=== PATIENT | male | born 1940 | race Caucasian/White ===

== ENCOUNTER 2024-09-17 14:54 | Inpatient (IN) ==
--- NOTE | 2024-09-17 15:35 | Emergency Department Note ---
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 Patient evidently states he moved here within the past year from [facility]. Is not established doctors locally. States he does take some Lasix has had some leg swelling issues but leg swelling seems to be worse. There is no ago slid and scraped his left elbow on a door frame. Did not fall and hit his head. States over the past week has been having some intermittent light flashes in both eyes. States somewhat more in the right vision torres but states it affects both eyes. No blurry vision. No eye pain or headache. No numbness or tingling. Does get significantly weak and has dyspnea on exertion with ambulation. Denies fever or significant chest pain or abdominal pain. Increased and now fairly regular flashes in both eyes and thus came here for evaluation today. Upon arrival was desaturated and with any transfer ambulation dropped into the 60s but now back in the mid to high 90s on 6 L. PAST MEDICAL HISTORY: As noted above MEDICATIONS: Discussed with the patient and reports he is on Lasix as well as inhalers and oxygen. Denies blood thinners to me. SOCIAL HISTORY: Former smoker, lives in assisted living PHYSICAL EXAM: GENERAL: alert and oriented in no acute distress on stretcher thin in appearance Head: normocephalic and atraumatic EYES: No injection, discharge or icterus. PERRL, EOMI. NECK: Trachea midline. Supple. ENT: Mucous membranes pink and moist. LUNGS: Airway patent. No retractions but mild tachypnea. Breath sounds scattered wheezes HEART: Regular rate and rhythm. No chest wall tenderness ABDOMEN: Soft and non-tender, without guarding or rebound. SKIN: Acyanotic, warm, dry, without rashes EXTREMITIES: With 2+ edema bilateral lower extremities with some mild erythema and excoriation of the bilateral lower legs with this sloughing superficial skin. The left elbow with an approximately 4 x 10 cm area of skin tear and abrasion with a little bit of granulation tissue over the wound but no active bleeding. No significant bony tenderness here. Soft compartments of the legs and arms on exam. NEUROLOGICAL: No focal deficits moving all extremities. No aphasia. No facial droop or slurred speech. EK bpm sinus rhythm with PAC. No PVC. No acute ST segment elevation or depression with incomplete right bundle branch block. QTc 423. CONTINUOUS CARDIAC MONITORING: was ordered and showed a heart rate of 70s to 90s bpm in sinus rhythm occasional PAC Patient's laboratory studies and imaging reviewed. Differential includes Infection, dehydration, metabolic abnormality, hypo/hyperglycemia, electrolyte disturbance, anemia, hypoxia, cardiac sources, intracerebral event, toxicologic, neurologic, as well as other pathologies. IMPRESSION/MEDICAL DECISION MAKING: Limited history available in the computer system. Has an established doctor locally by his report with history of significant COPD on chronic oxygen. Dyspnea on exertion as well as some flashing in the vision reported worsening of the past week. Respiratory viral panel completed his lives in assisted living. Not hypoxic so much at baseline. Does have some swelling of the lower legs. States worse than baseline. Uses Lasix to some degree. Unsure if there may be some cardiac or heart failure component. Chest x-ray will be obtained. Basic blood work ordered. Given the visual change infecting both eyes less likely pathologic and I significant eye pain. Doubt this is GCA/temporal arteritis. Doubt retinal pathology in both eyes. No obvious numbness or weakness in the extremities. Will send for CT of the head and CT angiograms head and neck looking for obvious vascular abnormality or findings of any bleeding. Does have a fairly decent skin tear and abrasion to the left elbow. Will obtain x-ray here but less likely to be fractured my review. Skin tear reportedly from a day or 2 ago and was not frankly cellulitic I am concerned that maybe some granulation versus initial infection starting here and will give him a dose of Ancef. Nursing to bandage. Not frankly confused or severely encephalopathic with the visual changes and his significant COPD and hypoxia with exertion did attain VBG. Significant hypercarbia. Discussed with patient and will try some BiPAP to see if this does improve his symptoms. Will give a DuoNeb as well. Patient was agreeable. Blood work here without significant leukocytosis however or severe anemia. Hemoglobin 10.6. No priors for comparison. Normal platelet count. Electrolytes without severe abnormality other than CO2 significant elevated. This seems consistent with his chronic respiratory failure. Normal creatinine. No evidence of acute hepatitis. CTA of the head and neck with some moderate carotid calcifications per radiology report but no evidence of significant occlusions, aneurysms, or bleeds. Patient does desaturate coming off of BiPAP but does well when he is back on BiPAP. Given some steroids in addition to DuoNeb and will bring in for further care. Hospitalist contacted. Believe vision change likely related to hypoxia and breathing issues more than a central [employer] process such as stroke. Left elbow wound again has been bandaged to receive some antibiotics to try to help event any infection from spreading from this area. X-ray report of the elbow reviewed. DIAGNOSIS: Vision changes, dyspnea on exertion/COPD exacerbation/acute on chronic respiratory failure, left elbow wound DISPOSITION: Hospitalist will evaluate Patient was agreeable with this plan. Critical Care I have personally spent 39 minutes of critical care time in the direct management of this patient. This includes bedside care, interpretation of diagnostic studies, and testing, discussion with consultants, patient, and other required patient management activities. These 39 minutes is in excess of all separately billable procedures. Past Med/Surg History Problem List (Updated 09/17/24 @ 21:41 by Constantin Blevins M.D.) Elbow wound (Acute) Changes in vision (Acute) Acute exacerbation of chronic obstructive pulmonary disease (Acute) Social History Smoking Status: Former smoker Preferred Language: Frisian Feels Safe at Home: Yes Results & Data (ED) Vital Signs Vital Signs - 24 hr 09/17/24 15:03 09/17/24 15:05 09/17/24 16:02 Temperature 36.8 C Temperature Source Oral Pulse Rate 86 89 Pulse Rate [Apical] Pulse Rhythm Regular Pulse Rhythm [Apical] Pulse Strength [Apical] Respiratory Rate 20 16 Respiratory Effort / Characteristics Respiratory Depth Respiratory Pattern Blood Pressure 134/66 Blood Pressure [Right Arm] Blood Pressure Mean 88 Blood Pressure Mean [Right Arm] Blood Pressure Position [Right Arm] Pulse Oximetry 67 L 98 97 Oxygen Delivery Method Nasal Cannula Nasal Cannula Nasal Cannula Oxygen Flow Rate 4 6 6 Fraction of Inspired Oxygen Sepsis Recent Fever Within 48 Hours No Sepsis New/Unexplained Change in Mental Status N/A Sepsis Action Taken by Nursing No Action Required 09/17/24 16:13 09/17/24 16:13 09/17/24 16:51 Temperature Temperature Source Pulse Rate 86 Pulse Rate [Apical] 87 88 Pulse Rhythm Pulse Rhythm [Apical] Regular Pulse Strength [Apical] Normal Respiratory Rate 18 18 18 Respiratory Effort / Characteristics Non-Labored Spontaneous Non-Labored Spontaneous Non-Labored Spontaneous Respiratory Depth Normal Respiratory Pattern Regular Blood Pressure Blood Pressure [Right Arm] 131/70 Blood Pressure Mean Blood Pressure Mean [Right Arm] 90 Blood Pressure Position [Right Arm] Sitting Pulse Oximetry 97 98 92 Oxygen Delivery Method BiPAP BiPAP Oxygen Flow Rate Fraction of Inspired Oxygen 30 30 Sepsis Recent Fever Within 48 Hours Sepsis New/Unexplained Change in Mental Status Sepsis Action Taken by Nursing 09/17/24 17:55 09/17/24 19:03 09/17/24 19:40 Temperature Temperature Source Pulse Rate Pulse Rate [Apical] 92 H 100 H 84 Pulse Rhythm Pulse Rhythm [Apical] Regular Pulse Strength [Apical] Normal Respiratory Rate 18 18 24 Respiratory Effort / Characteristics Non-Labored Spontaneous Non-Labored Spontaneous Non-Labored Spontaneous Respiratory Depth Normal Respiratory Pattern Blood Pressure Blood Pressure [Right Arm] 122/63 120/62 Blood Pressure Mean Blood Pressure Mean [Right Arm] 82 81 Blood Pressure Position [Right Arm] Sitting Sitting Pulse Oximetry 92 90 91 Oxygen Delivery Method BiPAP BiPAP BiPAP Oxygen Flow Rate Fraction of Inspired Oxygen 40 Sepsis Recent Fever Within 48 Hours Sepsis New/Unexplained Change in Mental Status Sepsis Action Taken by Nursing 09/17/24 19:56 09/17/24 20:55 Temperature Temperature Source Pulse Rate 84 Pulse Rate [Apical] 101 H Pulse Rhythm Pulse Rhythm [Apical] Pulse Strength [Apical] Normal Respiratory Rate 24 18 Respiratory Effort / Characteristics Non-Labored Spontaneous Non-Labored Spontaneous Respiratory Depth Normal Normal Respiratory Pattern Regular Blood Pressure Blood Pressure [Right Arm] 140/72 Blood Pressure Mean Blood Pressure Mean [Right Arm] 94 Blood Pressure Position [Right Arm] Sitting Pulse Oximetry 91 98 Oxygen Delivery Method BiPAP Oxygen Flow Rate Fraction of Inspired Oxygen 40 Sepsis Recent Fever Within 48 Hours Sepsis New/Unexplained Change in Mental Status Sepsis Action Taken by Nursing Laboratory Data 09/17/24 15:30 09/17/24 15:30 Lab Results 09/17/24 09/17/24 09/17/24 Range/Units 15:30 15:45 15:55 WBC 5.24 (4.8-10.8) K/ul RBC 3.63 L (4.70-6.10) M/uL Hgb 10.6 L (14.0-18.0) g/dl Hct 35.2 L (42.0-52.0) % MCV 97.0 (80.0-100.0) fL MCH 29.2 (25.0-34.0) pg MCHC 30.1 L (32.0-36.0) g/dL RDW Std Deviation 46.4 H (36.4-46.3) fL RDW Coeff of Escobar 13.1 (11.5-14.5) % Plt Count 159 (130-400) K/uL MPV 10.6 (9.4-12.4) fL Immature Gran % (Auto) 0.2 % Neut % (Auto) 77.3 % Lymph % (Auto) 5.5 % Laporte % (Auto) 13.4 % Eos % (Auto) 3.2 % Baso % (Auto) 0.4 % Neut # (Auto) 4.05 (1.40-6.50) K/uL Lymph # (Auto) 0.29 L (1.20-3.40) K/uL [place] # (Auto) 0.70 H (0.11-0.59) K/uL Eos # (Auto) 0.17 (0.00-0.50) K/uL Baso # (Auto) 0.02 (0.00-0.20) K/uL Immature Gran # (Auto) 0.01 (0.01-0.20) K/uL PT 10.5 (9.0-12.0) Seconds INR 1.0 (0.9-1.1) VBG pH 7.28 L (7.36-7.41) VBG pCO2 102 H (38-50) mmHg VBG pO2 28 mmHg VBG HCO3 48 mmol/L VBG O2 Saturation < 60.0 % VBG Base Excess 16.1 mEq/L Sodium 140 (136-145) mmol/L Potassium 4.1 (3.5-5.1) mmol/L Chloride 94 L (98-107) mmol/L Carbon Dioxide > 45 H* (21-32) mmol/L Anion Gap TNP BUN 18 (6-23) mg/dl Creatinine 0.64 (0.6-1.4) mg/dl Est Cr Clr Drug Dosing Not Reportable eGFR 94.52 BUN/Creatinine Ratio 28.1 H (10-20) Glucose 113 H (70-99(Fasting)) mg/dl Calcium 8.9 (8.6-10.3) mg/dl Magnesium 1.9 (1.7-2.4) mg/dl Total Bilirubin 0.3 (0.2-1.0) mg/dl AST 13 (13-39) U/L ALT 8 (7-52) U/L Alkaline Phosphatase 77 (34-104) U/L Troponin I High Sens 6.5 (0-20) pg/ml B-Natriuretic Peptide 73 (0-100) pg/ml Total Protein 7.2 (6.0-8.3) gm/dl Albumin 3.5 (3.4-5.0) gm/dl Globulin 3.7 (2.5-4.0) gm/dl Albumin/Globulin Ratio 0.9 (0.9-2) Procalcitonin < 0.02 (0-0.5) ng/ml TSH 4.123 (0.300-4.500) uIu/ml Adenovirus (PCR) Not Detected (NotDetected) B. pertussis DNA (PCR) Not Detected (NotDetected) B.parapertussis DNA PCR Not Detected (NotDetected) C. pneumoniae DNA (PCR) Not Detected (NotDetected) Coronavirus OC43 (PCR) Not Detected (NotDetected) Coronavirus HKU1 (PCR) Not Detected (NotDetected) Coronavirus 229E (PCR) Not Detected (NotDetected) SARS-CoV-2 (PCR) Not Detected (NotDetected) Coronavirus NL63 (PCR) Not Detected (NotDetected) Human Metapneumovir PCR Not Detected (NotDetected) Influenza Type A (PCR) Not Detected (NotDetected) Influenza Type B (PCR) Not Detected (NotDetected) M. pneumoniae (PCR) Not Detected (NotDetected) Parainfluenza 1 (PCR) Not Detected (NotDetected) Parainfluenza 2 (PCR) Not Detected (NotDetected) Parainfluenza 3 (PCR) Not Detected (NotDetected) Parainfluenza 4 (PCR) Not Detected (NotDetected) RSV (PCR) Not Detected (NotDetected) Entero/Rhino (PCR) Not Detected (NotDetected) 09/17/24 Range/Units 18:14 WBC (4.8-10.8) K/ul RBC (4.70-6.10) M/uL Hgb (14.0-18.0) g/dl Hct (42.0-52.0) % MCV (80.0-100.0) fL MCH (25.0-34.0) pg MCHC (32.0-36.0) g/dL RDW Std Deviation (36.4-46.3) fL RDW Coeff of Escobar (11.5-14.5) % Plt Count (130-400) K/uL MPV (9.4-12.4) fL Immature Gran % (Auto) % Neut % (Auto) % Lymph % (Auto) % Laporte % (Auto) % Eos % (Auto) % Baso % (Auto) % Neut # (Auto) (1.40-6.50) K/uL Lymph # (Auto) (1.20-3.40) K/uL Laporte # (Auto) (0.11-0.59) K/uL Eos # (Auto) (0.00-0.50) K/uL Baso # (Auto) (0.00-0.20) K/uL Immature Gran # (Auto) (0.01-0.20) K/uL PT (9.0-12.0) Seconds INR (0.9-1.1) VBG pH 7.31 L (7.36-7.41) VBG pCO2 92 H (38-50) mmHg VBG pO2 25 mmHg VBG HCO3 46 mmol/L VBG O2 Saturation < 60.0 % VBG Base Excess 15.4 mEq/L Sodium (136-145) mmol/L Potassium (3.5-5.1) mmol/L Chloride (98-107) mmol/L Carbon Dioxide (21-32) mmol/L Anion Gap BUN (6-23) mg/dl Creatinine (0.6-1.4) mg/dl Est Cr Clr Drug Dosing eGFR BUN/Creatinine Ratio (10-20) Glucose (70-99(Fasting)) mg/dl Calcium (8.6-10.3) mg/dl Magnesium (1.7-2.4) mg/dl Total Bilirubin (0.2-1.0) mg/dl AST (13-39) U/L ALT (7-52) U/L Alkaline Phosphatase (34-104) U/L Troponin I High Sens (0-20) pg/ml B-Natriuretic Peptide (0-100) pg/ml Total Protein (6.0-8.3) gm/dl Albumin (3.4-5.0) gm/dl Globulin (2.5-4.0) gm/dl Albumin/Globulin Ratio (0.9-2) Procalcitonin (0-0.5) ng/ml TSH (0.300-4.500) uIu/ml Adenovirus (PCR) (NotDetected) B. pertussis DNA (PCR) (NotDetected) B.parapertussis DNA PCR (NotDetected) C. pneumoniae DNA (PCR) (NotDetected) Coronavirus OC43 (PCR) (NotDetected) Coronavirus HKU1 (PCR) (NotDetected) Coronavirus 229E (PCR) (NotDetected) SARS-CoV-2 (PCR) (NotDetected) Coronavirus NL63 (PCR) (NotDetected) Human Metapneumovir PCR (NotDetected) Influenza Type A (PCR) (NotDetected) Influenza Type B (PCR) (NotDetected) M. pneumoniae (PCR) (NotDetected) Parainfluenza 1 (PCR) (NotDetected) Parainfluenza 2 (PCR) (NotDetected) Parainfluenza 3 (PCR) (NotDetected) Parainfluenza 4 (PCR) (NotDetected) RSV (PCR) (NotDetected) Entero/Rhino (PCR) (NotDetected) Administered Medications Magnesium Sulfate/Dextrose (Magnesium Sulfate / D5w) 1 gm in 100 mls @ 50 mls/hr IV ONE ONE Stop: 09/17/24 21:49 Last Admin: 09/17/24 20:52 Dose: 50 mls/hr Documented By: OLIVIER Ioversol (Optiray 320 125ml) 119 ml IV ONCE ONE Stop: 09/17/24 21:41 Last Admin: 09/17/24 21:33 Dose: 119 ml Documented By: BRM Discontinued Medications Albuterol (Albut/Ipratrop 3mg/0.5mg Neb 3 Ml Vial) 12 ml NEB ONE ONE; Protocol Stop: 09/17/24 15:56 Last Admin: 09/17/24 16:11 Dose: 12 ml Documented By: CARMEN Albuterol (Albut/Ipratrop 3mg/0.5mg Neb 3 Ml Vial) 12 ml NEB ONE ONE; Protocol Stop: 09/17/24 18:55 Last Admin: 09/17/24 19:36 Dose: 12 ml Documented By: JOURDAN Cefazolin Sodium (Ancef 2000mg) 2,000 mg in 15 mls @ 3.75 mls/min IV NOW STA Stop: 09/17/24 15:33 Last Admin: 09/17/24 17:11 Dose: 3.75 mls/min Documented By: OLIVIER Ioversol (Optiray 320 125ml) 119 ml IV ONCE ONE Stop: 09/17/24 18:44 Last Admin: 09/17/24 18:43 Dose: 119 ml Documented By: EFREM Methylprednisolone (Methylprednisolone 125 Mg/2 Ml Vial) 125 mg IV NOW STA Stop: 09/17/24 18:55 Last Admin: 09/17/24 19:02 Dose: 125 mg Documented By: OLIVIER Imaging Data Radiologist's Impression: Chest X-Ray 09/17/24 15:30 XR chest 1V portable CLINICAL HISTORY: weakness, falls, sob COMPARISON STUDY: No previous studies for comparison. FINDINGS: Lung volumes are normal. There is no pneumothorax or pleural effusion. There may be underlying emphysema. No consolidation is present. Pulmonary vascularity is normal. Cardiomediastinal silhouette is unremarkable. IMPRESSION: No acute cardiopulmonary findings. ACT 112: Negative or not required by law. Electronically signed by: Jaden Thorne M.D. 09/17/2024 4:15 PM Elbow X-Ray 09/17/24 15:30 XR elbow LT min 3V routine CLINICAL HISTORY: wound, hit door TECHNIQUE: 3 views of the left elbow were obtained. Comparison: None available at the time of this dictation. FINDINGS: There is no evidence of an acute fracture. Joint spaces are well-preserved. There is no prominence of the anterior or posterior fat pads to suggest an effusion. No soft tissue abnormality is seen. IMPRESSION: No evidence of acute osseous injury. ACT 112: Negative or not required by law. Electronically signed by: Ja Oneil M.D. 09/17/2024 4:[address] 09/17/24 15:31 CT OF THE HEAD WITHOUT CONTRAST CLINICAL HISTORY: Vision changes. COMPARISON STUDY: No previous studies for comparison. TECHNIQUE: Helical axial images of the head were obtained without IV contrast. Automated exposure control was utilized for the study. A dose lowering technique was utilized adhering to the principles of ALARA. FINDINGS: No acute intracranial hemorrhage, midline shift or mass effect is present. The ventricular system is unremarkable. The basal cisterns are patent. No extra-axial collections are present. There are no findings to suggest acute dural sinus thrombosis or acute territorial infarct. No significant calvarial abnormalities are present. Visualized portions of the sinuses and mastoid air cells are clear. IMPRESSION: No acute intracranial findings. ACT 112: Negative or not required by law. Electronically signed by: Jaden Thorne M.D. 09/17/2024 6:52 PM Head CTA 09/17/24 15:31 CTA ANGIOGRAPHY OF THE HEAD CLINICAL HISTORY: Vision changes. COMPARISON STUDY: No previous studies for comparison. TECHNIQUE: Helical axial images of the head were obtained following uneventful intravenous administration of 119 cc of Optiray. Sagittal and coronal reconstructions were viewed as well as maximal intensity projections on an independent 3-D workstation. Automated exposure control was utilized for the study. A dose lowering technique was utilized adhering to the principles of ALARA. CT DOSE: 1076.37 mGy.cm FINDINGS: This exam is mildly compromised by motion artifact. No acute intracranial hemorrhage, midline shift or mass effect is present. The ventricular system is normal. The basal cisterns are patent. There are no extra- axial collections. The bilateral M1, M2, A1 and A2 segments are patent. There is no intracranial aneurysm. The intracranial portions of the vertebral arteries are patent. The bilateral posterior inferior cerebellar arteries are patent. The basilar artery and bilateral posterior cerebral arteries are patent. No vessel occlusion within the posterior circulation is identified. Major dural sinuses are patent. IMPRESSION: No large vessel occlusion. No intracranial aneurysm. Exam mildly compromised by motion artifact. ACT 112: Negative or not required by law. Electronically signed by: Jaden Thorne M.D. 09/17/2024 6:59 PM Neck CTA 09/17/24 15:31 CT ANGIOGRAPHY OF THE NECK WITH CONTRAST CLINICAL HISTORY: Vision changes. COMPARISON STUDY: No previous studies for comparison. Technique: CT angiography of the carotid and vertebral arteries was obtained using Optiray and 3D reconstruction on an independent workstation. NASCET criteria was utilized. Automated exposure control was utilized for the study. A dose lowering technique was utilized adhering to the principles of ALARA. Findings: Severe emphysema within the visualized lung apices is noted. There is no cervical spine fracture. No cervical lymphadenopathy is present. This exam is mildly compromised by motion artifact. The bilateral common carotid, cervical internal carotid and vertebral arteries are patent. There is moderate atherosclerotic plaque within the proximal bilateral internal carotid arteries without resultant stenosis. There is no aneurysm or dissection within the neck. The CTA of the head will be reported separately. IMPRESSION: 1. Moderate atherosclerotic plaque within the carotid bifurcations without stenosis. No stenosis or dissection within the bilateral common carotid, cervical internal carotid or vertebral arteries. 2. Emphysema. ACT 112: Negative or not required by law. Electronically signed by: Jaden Thorne M.D. 09/17/2024 6:56 PM Discharge Plan Visit Data Chief Complaint: Illness Stated Complaint: Flashing lights in eyes ED Provider: Constantin Blevins Discharge Problem: Acute exacerbation of chronic obstructive pulmonary disease, Changes in vision, Elbow wound Patient Disposition: Being Evaluated by Hospitalist Forms Stand Alone Forms: [facility] Referrals Referrals: PCP,NO [Primary Care Provider] - Discharge Problem: Elbow wound Qualifiers: Encounter type: initial encounter Laterality: left Qualified Code(s): S51.002A - Unspecified open wound of left elbow, initial encounter
[2024-09-17 15:52] LABS: Basophils # (auto) 0.02 K/uL (0.00-0.20); Basophils % (auto) 0.4 %; Eosinophils # (auto) 0.17 K/uL (0.00-0.50); Eosinophils % (auto) 3.2 %; Hematocrit (blood only) 35.2 % (42.0-52.0); Hemoglobin 10.6 g/dl (14.0-18.0); Immature Granulocytes # (auto) 0.01 K/uL (0.01-0.20); Immature Granulocytes % (auto) 0.2 %; Lymphocytes # (auto) 0.29 K/uL (1.20-3.40); Lymphocytes % (auto) 5.5 %; Mean Corpuscular Hemoglobin 29.2 pg (25.0-34.0); Mean Corpuscular Hgb Conc 30.1 g/dL (32.0-36.0); Mean Platelet Volume 10.6 fL (9.4-12.4); Monocytes % (auto) 13.4 %; Neutrophils # (auto) 4.05 K/uL (1.40-6.50); Neutrophils % (auto) 77.3 %; Platelet Count 159 K/uL (130-400); RDW Coefficient of Variation 13.1 % (11.5-14.5); RDW Standard Deviation 46.4 fL (36.4-46.3); Red Blood Count 3.63 M/uL (4.70-6.10); White Blood Count 5.24 K/ul (4.8-10.8)
[2024-09-17 15:52] LABS: Base Excess VBG 16.1 mEq/L; HCO3 VBG 48 mmol/L; Oxygen Saturation VBG < 60.0 %; PCO2 VBG 102 mmHg (38-50); PO2 VBG 28 mmHg; pH VBG 7.28 (7.36-7.41)
[2024-09-17 16:08] LABS: Alanine Aminotransferase 8 U/L (7-52); Albumin Globulin Ratio 0.9 (0.9-2); Albumin Level 3.5 gm/dl (3.4-5.0); Alkaline Phosphatase 77 U/L (34-104); Aspartate Aminotransferase 13 U/L (13-39); BUN Creatinine Ratio 28.1 (10-20); Bilirubin,Total 0.3 mg/dl (0.2-1.0); Blood Urea Nitrogen 18 mg/dl (6-23); Calcium 8.9 mg/dl (8.6-10.3); Carbon Dioxide > 45 mmol/L (21-32); Chloride 94 mmol/L (98-107); Globulin 3.7 gm/dl (2.5-4.0); Glucose 113 mg/dl (70-99(Fasting)); Magnesium 1.9 mg/dl (1.7-2.4); Potassium 4.1 mmol/L (3.5-5.1); Sodium 140 mmol/L (136-145); Total Protein 7.2 gm/dl (6.0-8.3)
--- NOTE | 2024-09-17 16:10 | XRay Report ---
XR elbow LT min 3V routine CLINICAL HISTORY: wound, hit door TECHNIQUE: 3 views of the left elbow were obtained. Comparison: None available at the time of this dictation. FINDINGS: There is no evidence of an acute fracture. Joint spaces are well-preserved. There is no prominence of the anterior or posterior fat pads to suggest an effusion. No soft tissue abnormality is seen. IMPRESSION: No evidence of acute osseous injury. ACT 112: Negative or not required by law. Electronically signed by: Ja Oneil M.D. 09/17/2024 4:09 PM
[2024-09-17] MEDS: ALBUT/IPRATROP 3MG/0.5MG NEB 3 ML VIAL NEB ONE ×2 (16:11→19:36)
--- NOTE | 2024-09-17 16:16 | XRay Report ---
XR chest 1V portable CLINICAL HISTORY: weakness, falls, sob COMPARISON STUDY: No previous studies for comparison. FINDINGS: Lung volumes are normal. There is no pneumothorax or pleural effusion. There may be underly ing emphysema. No consolidation is present. Pulmonary vascularity is normal. Cardiomediastinal silhou ette is unremarkable. IMPRESSION: No acute cardiopulmonary findings. ACT 112: Negative or not required by law. Electronically signed by: Jaden Thorne M.D. 09/17/2024 4:15 PM
[2024-09-17 16:27] LABS: Prothrombin Time 10.5 Seconds (9.0-12.0)
[2024-09-17 16:38] LABS: Thyroid Stimulating Hormone 4.123 uIu/ml (0.300-4.500); Troponin I High Sensitivity 6.5 pg/ml (0-20)
[2024-09-17 16:53] LABS: Adenovirus PCR Not Detected (NotDetected); Bordetella parapertussis PCR Not Detected (NotDetected); Bordetella pertussis PCR Not Detected (NotDetected); Chlamydia pneumoniae PCR Not Detected (NotDetected); Coronavirus 229E PCR Not Detected (NotDetected); Coronavirus CoV-2 (COVID19)PCR Not Detected (NotDetected); Coronavirus HKU1 PCR Not Detected (NotDetected); Coronavirus NL63 PCR Not Detected (NotDetected); Coronavirus OC43PCR Not Detected (NotDetected); Human Metapneumovirus PCR Not Detected (NotDetected); Influenza A PCR Not Detected (NotDetected); Influenza B PCR Not Detected (NotDetected); Mycoplasma pneumoniae PCR Not Detected (NotDetected); Parainfluenza Virus 1 PCR Not Detected (NotDetected); Parainfluenza Virus 2 PCR Not Detected (NotDetected); Parainfluenza Virus 3 PCR Not Detected (NotDetected); Parainfluenza Virus 4 PCR Not Detected (NotDetected); Respiratory Syncytial VirusPCR Not Detected (NotDetected); Rhinovirus/Enterovirus PCR Not Detected (NotDetected)
[2024-09-17] MEDS: ceFAZolin 2000MG 2,000 MG/15 ML SYR IV STA (17:11)
[2024-09-17 18:28] LABS: Base Excess VBG 15.4 mEq/L; HCO3 VBG 46 mmol/L; Oxygen Saturation VBG < 60.0 %; PCO2 VBG 92 mmHg (38-50); PO2 VBG 25 mmHg; pH VBG 7.31 (7.36-7.41)
[2024-09-17] MEDS: OPTIRAY 320 125ml IV ONE ×2 (18:43→21:33)
--- NOTE | 2024-09-17 18:53 | CT Scan Report ---
CT OF THE HEAD WITHOUT CONTRAST CLINICAL HISTORY: Vision changes. COMPARISON STUDY: No previous studies for comparison. TECHNIQUE: Helical axial images of the head were obtained without IV contrast. Automated exposure con trol was utilized for the study. A dose lowering technique was utilized adhering to the principles o f ALARA. FINDINGS: No acute intracranial hemorrhage, midline shift or mass effect is present. The ventricular system is unremarkable. The basal cisterns are patent. No extra-axial collections are present. There are no findings to suggest acute dural sinus thrombosis or acute territorial infarct. No significant calvarial abnormalities are present. Visualized portions of the sinuses and mastoid air cells are rogerio ar. IMPRESSION: No acute intracranial findings. ACT 112: Negative or not required by law. Electronically signed by: Jaden Thorne M.D. 09/17/2024 6:52 PM
--- NOTE | 2024-09-17 18:58 | CT Scan Report ---
CT ANGIOGRAPHY OF THE NECK WITH CONTRAST CLINICAL HISTORY: Vision changes. COMPARISON STUDY: No previous studies for comparison. Technique: CT angiography of the carotid and vertebral arteries was obtained using Optiray and 3D rec onstruction on an independent workstation. NASCET criteria was utilized. Automated exposure control was utilized for the study. A dose lowering technique was utilized adhering to the principles of ALA RA. Findings: Severe emphysema within the visualized lung apices is noted. There is no cervical spine fra cture. No cervical lymphadenopathy is present. This exam is mildly compromised by motion artifact. Th e bilateral common carotid, cervical internal carotid and vertebral arteries are patent. There is mod erate atherosclerotic plaque within the proximal bilateral internal carotid arteries without resultan t stenosis. There is no aneurysm or dissection within the neck. The CTA of the head will be reported separately. IMPRESSION: 1. Moderate atherosclerotic plaque within the carotid bifurcations without stenosis. No stenosis or d issection within the bilateral common carotid, cervical internal carotid or vertebral arteries. 2. Emphysema. ACT 112: Negative or not required by law. Electronically signed by: Jaden Thorne M.D. 09/17/2024 6:56 PM
--- NOTE | 2024-09-17 19:00 | CT Scan Report ---
CTA ANGIOGRAPHY OF THE HEAD CLINICAL HISTORY: Vision changes. COMPARISON STUDY: No previous studies for comparison. TECHNIQUE: Helical axial images of the head were obtained following uneventful intravenous administr ation of 119 cc of Optiray. Sagittal and coronal reconstructions were viewed as well as maximal inten sity projections on an independent 3-D workstation. Automated exposure control was utilized for the study. A dose lowering technique was utilized adhering to the principles of ALARA. CT DOSE: 1076.37 mGy.cm FINDINGS: This exam is mildly compromised by motion artifact. No acute intracranial hemorrhage, midli ne shift or mass effect is present. The ventricular system is normal. The basal cisterns are patent. There are no extra-axial collections. The bilateral M1, M2, A1 and A2 segments are patent. There is n o intracranial aneurysm. The intracranial portions of the vertebral arteries are patent. The bilatera l posterior inferior cerebellar arteries are patent. The basilar artery and bilateral posterior cereb ral arteries are patent. No vessel occlusion within the posterior circulation is identified. Major du ral sinuses are patent. IMPRESSION: No large vessel occlusion. No intracranial aneurysm. Exam mildly compromised by motion a rtifact. ACT 112: Negative or not required by law. Electronically signed by: Jaden Thorne M.D. 09/17/2024 6:59 PM
[2024-09-17] MEDS: methylPREDNISolone 125 MG/2 ML VIAL IV STA (19:02)
[2024-09-17] MEDS: MAGNESIUM SULFATE / D5W 1 GM/100 ML BAG IV ONE (20:52)
--- NOTE | 2024-09-17 20:52 | History & Physical Report ---
Date of Service September 17, 2024 Assessment & Plan (1) Acute and chronic respiratory failure with hypercapnia: Plan: Secondary to COPD exacerbation Rule out PE as precipitant given absence of cough symptoms Respiratory acidosis secondary to above New onset anemia, patient unaware of previous diagnosis, FOBT done at the ER was negative Hyperglycemia rule out DM Past tobacco abuse Medical telemetry Continue BiPAP Recheck VBG Nebs RTC, prednisone course CT chest PE study Pulmonary consult if without improvement Anemia workup, transfuse PRBC if hemoglobin less than 7 and or from symptomatic anemia Retrieve [facility] PCP records. Check hemoglobin A1c DVT prophylaxis. Lovenox subcu DNR Patient requests for son to be given updates regarding care. Mr. Tony Wells, [phone]. Text document was generated using charming charlie voice recognition software. It may contain grammatical or spelling errors. Kindly contact undersigned for clarification of any documentation item in question. History of Present Illness Chief Complaint: Shortness of breath Primary Care Provider: Dr. Yakov Giles from [place], [place] History obtained from patient and records. Medical history significant for COPD, past tobacco abuse. Patient moved to [facility] late last year from [place], [place]. Has not been able to establish with local PCP. Few days ago, patient noted intermittent light flashes on both eyes. No eye pain or blurred vision or head trauma. Denies headache. Left elbow got scraped on the door without unusual bleeding. Today, patient noted more SOB on exertion. Denies cough or chest pain symptoms. Denies fluid retention. Denies abdominal pain/black/bloody stools/hematuria. O2 sat 60s upon arrival at the ER. BiPAP initiated at the ER. 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 Allergies Allergy/AdvReac Type Severity Reaction Status Date / Time No Known Allergies Allergy Unverified 09/17/24 22:43 Past Med/Surg History Problem List (Updated 09/18/24 @ 08:11 by Damian Young MD) Acute and chronic respiratory failure with hypercapnia Elbow wound (Acute) Changes in vision (Acute) Acute exacerbation of chronic obstructive pulmonary disease (Acute) Social History Smoking Status: Former smoker Tobacco Type: Cigarettes Hx Alcohol Use: No Hx Substance Use: No Preferred Language: Brazilian 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 Required: No Beliefs That Will Affect Care: None Current Living Situation: Personal Care Facility Feels Safe at Home: Yes Safety Concerns: Feels Safe At This Time Assistive Devices: Scooter/Electric Scooter Review of Systems Review of Systems: As per HPI, all other systems reviewed and negative Physical Exam Physical Exam: GENERAL: Comfortable, pleasant, slightly anxious, no respiratory distress SKIN: Pallor, warm HEENT: Partial alopecia, pale palpebral conjunctivae, no ptosis, dry buccal mucosa, BiPAP in place NECK : Supple, no tenderness CHEST : Decreased breath sounds, scattered expiratory wheezes, no tenderness HEART : RRR, no obvious murmurs ABDOMEN: Some distention, nontender RECTAL : Intact sphincter, brown stool (FOBT negative) EXTREMITIES : Bilateral LE swelling without tenderness (chronic as per patient), thickened toenails, no other conspicuous deformities noted NEUROLOGIC : Coherent, no facial asymmetry, tremulous, slightly hard of hearing, gait and stance not assessed Results & Data Results & Data Vital Signs (Past 12 Hours) Vital Signs Temp Pulse Pulse Resp BP BP Pulse Ox 09/17/24 19:56 84 24 91 09/17/24 19:40 84 24 91 09/17/24 19:03 100 H 18 120/62 90 09/17/24 17:55 92 H 18 122/63 92 09/17/24 16:51 88 18 131/70 92 09/17/24 16:13 86 18 98 09/17/24 16:13 87 18 97 09/17/24 16:02 89 16 97 09/17/24 15:05 98 09/17/24 15:03 36.8 C 86 20 134/66 67 L O2 Del Method O2 Flow Rate FiO2 09/17/24 19:56 40 09/17/24 19:40 BiPAP 40 09/17/24 19:03 BiPAP 09/17/24 17:55 BiPAP 09/17/24 16:51 BiPAP 09/17/24 16:13 30 09/17/24 16:13 BiPAP 30 09/17/24 16:02 Nasal Cannula 6 09/17/24 15:05 Nasal Cannula 6 09/17/24 15:03 Nasal Cannula 4 Laboratory Results Laboratory Results WBC 5.24 K/ul (4.8-10.8) 09/17/24 15:30 RBC 3.63 M/uL (4.70-6.10) L 09/17/24 15:30 Hgb 10.6 g/dl (14.0-18.0) L 09/17/24 15:30 Hct 35.2 % (42.0-52.0) L 09/17/24 15:30 MCV 97.0 fL (80.0-100.0) 09/17/24 15:30 MCH 29.2 pg (25.0-34.0) 09/17/24 15: MCHC 30.1 g/dL (32.0-36.0) L 09/17/24 15:30 RDW Std Deviation 46.4 fL (36.4-46.3) H 09/17/24 15:30 RDW Coeff of Escobar 13.1 % (11.5-14.5) 09/17/24 15: Plt Count 159 K/uL (130-400) 09/17/24 15:30 MPV 10.6 fL (9.4-12.4) 09/17/24 15:30 Immature Gran % (Auto) 0.2 % 09/17/24 15:30 Neut % (Auto) 77.3 % 09/17/24 15:30 Lymph % (Auto) 5.5 % 09/17/24 15:30 [place] % (Auto) 13.4 % 09/17/24 15:30 Eos % (Auto) 3.2 % 09/17/24 15:30 Baso % (Auto) 0.4 % 09/17/24 15:30 Neut # (Auto) 4.05 K/uL (1.40-6.50) 09/17/24 15:30 Lymph # (Auto) 0.29 K/uL (1.20-3.40) L 09/17/24 15:30 [place] # (Auto) 0.70 K/uL (0.11-0.59) H 09/17/24 15:30 Eos # (Auto) 0.17 K/uL (0.00-0.50) 09/17/24 15:30 Baso # (Auto) 0.02 K/uL (0.00-0.20) 09/17/24 15:30 Immature Gran # (Auto) 0.01 K/uL (0.01-0.20) 09/17/24 15:30 PT 10.5 Seconds (9.0-12.0) 09/17/24 15:30 INR 1.0 (0.9-1.1) 09/17/24 15:30 VBG pH 7.31 (7.36-7.41) L 09/17/24 18:14 VBG pCO2 92 mmHg (38-50) H 09/17/24 18:14 VBG pO2 25 mmHg 09/17/24 18:14 VBG HCO3 46 mmol/L 09/17/24 18:14 VBG O2 Saturation < 60.0 % 09/17/24 18:14 VBG Base Excess 15.4 mEq/L 09/17/24 18:14 Sodium 140 mmol/L (136-145) 09/17/24 15:30 Potassium 4.1 mmol/L (3.5-5.1) 09/17/24 15:30 Chloride 94 mmol/L (98-107) L 09/17/24 15:30 Carbon Dioxide > 45 mmol/L (21-32) H* 09/17/24 15:30 Anion Gap TNP 09/17/24 15:30 BUN 18 mg/dl (6-23) 09/17/24 15:30 Creatinine 0.64 mg/dl (0.6-1.4) 09/17/24 15:30 Est Cr Clr Drug Dosing Not Reportable 09/17/24 15:30 eGFR 94.52 09/17/24 15:30 BUN/Creatinine Ratio 28.1 (10-20) H 09/17/24 15:30 Glucose 113 mg/dl (70-99(Fasting)) H 09/17/24 15:30 Calcium 8.9 mg/dl (8.6-10.3) 09/17/24 15:30 Magnesium 1.9 mg/dl (1.7-2.4) 09/17/24 15:30 Total Bilirubin 0.3 mg/dl (0.2-1.0) 09/17/24 15:30 AST 13 U/L (13-39) 09/17/24 15:30 ALT 8 U/L (7-52) 09/17/24 15:30 Alkaline Phosphatase 77 U/L (34-104) 09/17/24 15:30 Troponin I High Sens 6.5 pg/ml (0-20) 09/17/24 15:30 B-Natriuretic Peptide 73 pg/ml (0-100) 09/17/24 15:30 Total Protein 7.2 gm/dl (6.0-8.3) 09/17/24 15:30 Albumin 3.5 gm/dl (3.4-5.0) 09/17/24 15:30 Globulin 3.7 gm/dl (2.5-4.0) 09/17/24 15:30 Albumin/Globulin Ratio 0.9 (0.9-2) 09/17/24 15:30 Procalcitonin < 0.02 ng/ml (0-0.5) 09/17/24 15:30 TSH 4.123 uIu/ml (0.300-4.500) 09/17/24 15:30 Adenovirus (PCR) Not Detected (NotDetected) 09/17/24 15:55 B. pertussis DNA (PCR) Not Detected (NotDetected) 09/17/24 15:55 B.parapertussis DNA PCR Not Detected (NotDetected) 09/17/24 15:55 C. pneumoniae DNA (PCR) Not Detected (NotDetected) 09/17/24 15:55 Coronavirus OC43 (PCR) Not Detected (NotDetected) 09/17/24 15:55 Coronavirus HKU1 (PCR) Not Detected (NotDetected) 09/17/24 15:55 Coronavirus 229E (PCR) Not Detected (NotDetected) 09/17/24 15:55 SARS-CoV-2 (PCR) Not Detected (NotDetected) 09/17/24 15:55 Coronavirus NL63 (PCR) Not Detected (NotDetected) 09/17/24 15:55 Human Metapneumovir PCR Not Detected (NotDetected) 09/17/24 15:55 Influenza Type A (PCR) Not Detected (NotDetected) 09/17/24 15:55 Influenza Type B (PCR) Not Detected (NotDetected) 09/17/24 15:55 M. pneumoniae (PCR) Not Detected (NotDetected) 09/17/24 15:55 Parainfluenza 1 (PCR) Not Detected (NotDetected) 09/17/24 15:55 Parainfluenza 2 (PCR) Not Detected (NotDetected) 09/17/24 15:55 Parainfluenza 3 (PCR) Not Detected (NotDetected) 09/17/24 15:55 Parainfluenza 4 (PCR) Not Detected (NotDetected) 09/17/24 15:55 RSV (PCR) Not Detected (NotDetected) 09/17/24 15:55 Entero/Rhino (PCR) Not Detected (NotDetected) 09/17/24 15:55 Impressions Chest X-Ray 09/17/24 15:30 XR chest 1V portable CLINICAL HISTORY: weakness, falls, sob COMPARISON STUDY: No previous studies for comparison. FINDINGS: Lung volumes are normal. There is no pneumothorax or pleural effusion. There may be underlying emphysema. No consolidation is present. Pulmonary vascularity is normal. Cardiomediastinal silhouette is unremarkable. IMPRESSION: No acute cardiopulmonary findings. ACT 112: Negative or not required by law. Electronically signed by: Jaden Thorne M.D. 09/17/2024 4:15 PM Elbow X-Ray 09/17/24 15:30 XR elbow LT min 3V routine CLINICAL HISTORY: wound, hit door TECHNIQUE: 3 views of the left elbow were obtained. Comparison: None available at the time of this dictation. FINDINGS: There is no evidence of an acute fracture. Joint spaces are well-preserved. There is no prominence of the anterior or posterior fat pads to suggest an effusion. No soft tissue abnormality is seen. IMPRESSION: No evidence of acute osseous injury. ACT 112: Negative or not required by law. Electronically signed by: Ja Oneil M.D. 09/17/2024 4:[address] 09/17/24 15:31 CT OF THE HEAD WITHOUT CONTRAST CLINICAL HISTORY: Vision changes. COMPARISON STUDY: No previous studies for comparison. TECHNIQUE: Helical axial images of the head were obtained without IV contrast. Automated exposure control was utilized for the study. A dose lowering technique was utilized adhering to the principles of ALARA. FINDINGS: No acute intracranial hemorrhage, midline shift or mass effect is present. The ventricular system is unremarkable. The basal cisterns are patent. No extra-axial collections are present. There are no findings to suggest acute dural sinus thrombosis or acute territorial infarct. No significant calvarial abnormalities are present. Visualized portions of the sinuses and mastoid air cells are clear. IMPRESSION: No acute intracranial findings. ACT 112: Negative or not required by law. Electronically signed by: Jaden Thorne M.D. 09/17/2024 6:52 PM Head CTA 09/17/24 15:31 CTA ANGIOGRAPHY OF THE HEAD CLINICAL HISTORY: Vision changes. COMPARISON STUDY: No previous studies for comparison. TECHNIQUE: Helical axial images of the head were obtained following uneventful intravenous administration of 119 cc of Optiray. Sagittal and coronal reconstructions were viewed as well as maximal intensity projections on an independent 3-D workstation. Automated exposure control was utilized for the study. A dose lowering technique was utilized adhering to the principles of ALARA. CT DOSE: 1076.37 mGy.cm FINDINGS: This exam is mildly compromised by motion artifact. No acute intracranial hemorrhage, midline shift or mass effect is present. The ventricular system is normal. The basal cisterns are patent. There are no extra- axial collections. The bilateral M1, M2, A1 and A2 segments are patent. There is no intracranial aneurysm. The intracranial portions of the vertebral arteries are patent. The bilateral posterior inferior cerebellar arteries are patent. The basilar artery and bilateral posterior cerebral arteries are patent. No vessel occlusion within the posterior circulation is identified. Major dural sinuses are patent. IMPRESSION: No large vessel occlusion. No intracranial aneurysm. Exam mildly compromised by motion artifact. ACT 112: Negative or not required by law. Electronically signed by: Jaden Thorne M.D. 09/17/2024 6:59 PM Neck CTA 09/17/24 15:31 CT ANGIOGRAPHY OF THE NECK WITH CONTRAST CLINICAL HISTORY: Vision changes. COMPARISON STUDY: No previous studies for comparison. Technique: CT angiography of the carotid and vertebral arteries was obtained using Optiray and 3D reconstruction on an independent workstation. NASCET criteria was utilized. Automated exposure control was utilized for the study. A dose lowering technique was utilized adhering to the principles of ALARA. Findings: Severe emphysema within the visualized lung apices is noted. There is no cervical spine fracture. No cervical lymphadenopathy is present. This exam is mildly compromised by motion artifact. The bilateral common carotid, cervical internal carotid and vertebral arteries are patent. There is moderate atherosclerotic plaque within the proximal bilateral internal carotid arteries without resultant stenosis. There is no aneurysm or dissection within the neck. The CTA of the head will be reported separately. IMPRESSION: 1. Moderate atherosclerotic plaque within the carotid bifurcations without stenosis. No stenosis or dissection within the bilateral common carotid, cervical internal carotid or vertebral arteries. 2. Emphysema. ACT 112: Negative or not required by law. Electronically signed by: Jaden Thorne M.D. 09/17/2024 6:56 PM Diagnostic Findings EKG as per my interpretation :Rate 85, NSR, LAD, LAFB, incomplete RBBB, no ischemia
[2024-09-17] MEDS ORDERED: PROMETHAZINE 6.25 MG/50.25 ML BAG IV PRN (20:54)
[2024-09-17] MEDS ORDERED: ACETAMINOPHEN 325 MG TAB PO PRN (20:54)
[2024-09-17] MEDS ORDERED: Patient's HEIGHT &/or WEIGHT Needed STA (21:04)
[2024-09-17] MEDS ORDERED: Patient's ALLERGY Info needs ENTERED STA (21:11)
--- NOTE | 2024-09-17 23:55 | CT Scan Report ---
Exam(s): CTA CHEST IV Amt: 119 ml EXAM: CT Angiography Chest With Intravenous Contrast CLINICAL HISTORY: Reason for exam: sob. TECHNIQUE: Axial computed tomographic angiography images of the chest with intravenous contrast. CTDI is 35 mGy and DLP is 774.68 mGy-cm. Automated exposure control was utilized for the study. A dose lowering technique was utilized adhering to the principles of ALARA. MIP reconstructed images were created and reviewed. 119 ML IV contrast is given. Excellent aortic and pulmonary arterial enhancement. Mild to moderate breathing/motion artifact. COMPARISON: Chest x-ray done earlier the same day. FINDINGS: Pulmonary arteries: No pulmonary embolism. Mild vascular prominence, nonspecific, may be chronic, cannot rule out mild CHF. Aorta: No dissection or aneurysm. Lungs: Severe emphysema. Pleural-parenchymal thickening posterior bilateral lower lobe lung, greater on the left, nonspecific, probably chronic. No consolidation. Pleural space: No pleural effusion. No pneumothorax. Heart: No cardiomegaly. No significant pericardial effusion. No evidence of elevated right heart pressures. Bones/joints: No acute fracture. Soft tissues: Unremarkable. Lymph nodes: No enlarged lymph nodes. IMPRESSION: 1. No pulmonary embolism. 2. Severe emphysema. 3. Probable scarring posterior costophrenic angles bilaterally. No consolidation or pleural effusion. Electronically signed by: Bri Haynes M.D. 09/17/24 23:54 PM
[2024-09-18 00:13] LABS: Appearance Urine Clear (Clear); Bacteria Urine Automated None Seen (None Seen); Bilirubin Urine Negative (Negative); Blood Urine Negative (Negative); Cast Urine Automated 0-2 /lpf (0-2); Color Urine Yellow; Epithelial Cell Urine Auto 0-2 /hpf (0-2); Glucose Urine UA Negative (Negative); Ketones Urine Trace (Negative); Leukocyte Esterase Urine Negative (Negative); Nitrite Urine Negative (Negative); Protein Urine 1+ (Negative); RBC Urine Automated 0-2 /hpf (0-2); Specific Gravity Urine > 1.045 (1.000-1.030); Urobilinogen Urine Negative (Negative); WBC Urine Automated 0-5 /hpf (0-5)
[2024-09-18] MEDS: ALBUT/IPRATROP 3MG/0.5MG NEB 3 ML VIAL NEB SCH (00:37)
[2024-09-18] MEDS: LACTATED RINGER'S 1,000 ML IV STA (01:03)
[2024-09-18 05:05] LABS: HCO3 VBG 44 mmol/L; Oxygen Saturation VBG < 60.0 %; PCO2 VBG 86 mmHg (38-50); PO2 VBG 27 mmHg; pH VBG 7.32 (7.36-7.41)
[2024-09-18] MEDS: hydrOXYzine HCl 10 MG TAB PO PRN (05:09)
[2024-09-18 05:14] LABS: Basophils # (auto) 0.01 K/uL (0.00-0.20); Basophils % (auto) 0.4 %; Hematocrit (blood only) 35.8 % (42.0-52.0); Hemoglobin 10.9 g/dl (14.0-18.0); Immature Granulocytes # (auto) 0.01 K/uL (0.01-0.20); Immature Granulocytes % (auto) 0.4 %; Lymphocytes # (auto) 0.22 K/uL (1.20-3.40); Mean Corpuscular Hemoglobin 29.4 pg (25.0-34.0); Mean Corpuscular Hgb Conc 30.4 g/dL (32.0-36.0); Mean Corpuscular Volume 96.5 fL (80.0-100.0); Mean Platelet Volume 10.9 fL (9.4-12.4); Monocytes # (auto) 0.03 K/uL (0.11-0.59); Monocytes % (auto) 1.2 %; Neutrophils # (auto) 2.17 K/uL (1.40-6.50); Platelet Count 150 K/uL (130-400); RDW Coefficient of Variation 13.3 % (11.5-14.5); RDW Standard Deviation 47.1 fL (36.4-46.3); Red Blood Count 3.71 M/uL (4.70-6.10); Reticulocyte % 0.96 % (0.50-2.00); White Blood Count 2.44 K/ul (4.8-10.8)
[2024-09-18] MEDS ORDERED: OLANZapine 10 MG/2.1 ML SDV IM PRN (05:19)
[2024-09-18 05:33] LABS: BUN Creatinine Ratio 22.6 (10-20); Calcium 9.1 mg/dl (8.6-10.3); Creatinine Clr Calc Pharmacy 82.8 ml/min; Potassium 4.3 mmol/L (3.5-5.1)
[2024-09-18] MEDS: OLANZapine 10 MG/2.1 ML SDV IM STA (05:39)
[2024-09-18 05:54] LABS: Ferritin 103.9 ng/ml (8-388)
[2024-09-18 06:00] LABS: Folate (Folic Acid),Ser orPlas 9.92 ng/ml (>5.38)
[2024-09-18 07:32] LABS: Estimated Average Glucose 123 mg/dl; Hemoglobin A1C 5.9 % (4.5-5.6)
[2024-09-18] MEDS ORDERED: predniSONE 20 MG TAB PO SCH (09:00)
[2024-09-18] MEDS ORDERED: ENOXAPARIN INJ 40 MG/0.4 ML SYR SQ SCH (09:00)
[2024-09-18] MEDS: predniSONE 20 MG TAB PO SCH (10:28)
[2024-09-18] MEDS: ENOXAPARIN INJ 30 MG/0.3 ML SYR SQ SCH (10:30)
--- NOTE | 2024-09-18 12:15 | Hospitalist Progress Note ---
Date of Service September 18, 2024 Assessment & Plan (1) Acute and chronic respiratory failure with hypercapnia: Plan Pt is a 84yoM with PMHx significant for COPD, past tobacco abuse presenting with concern for shortness of breath and acute on chronic hypoxic respiratory failure. Acute on Chronic respiratory failure with hypercapnia Secondary to COPD exacerbation Chest CTA with no PE Respiratory acidosis secondary to above Nebs RTC, prednisone course patient originally requiring BiPAP with baseline oxygen use of 4 L Patient has been improving and appears to be back to baseline oxygen use Pulmonary consult if without improvement Continue to monitor New onset anemia Iron deficiency anemia Patient unaware of previous diagnosis FOBT done at the ER was negative Anemia panel noting iron deficiency anemia Started on oral iron supplements Continue to monitor hemoglobin transfuse PRBC if hemoglobin less than 7 and or from symptomatic anemia Prediabetes Patient with noted hyperglycemia Hemoglobin A1c of 5.9 indicating a new diagnosis of prediabetes Encourage dietary changes as well as exercise PCP follow-up Diet: regular DVT prophylaxis: Lovenox subcu CODE STATUS: DNR Dispo: PT/OT ordered for further recs Admission and Anticipated Discharge Date Admission Date: September 17, 2024 Subjective patient was seen sitting up in bed, nasal cannula in the nares states that he is feeling better than when he came in Notes he uses 4 L of oxygen at baseline Denying shortness of breath or chest tightness at that time Review of Systems Review of Systems: All systems reviewed & are unremarkable except as noted in Subjective Physical Exam Physical Exam: General: Alert, oriented. No acute distress Skin: noted lichenified skin especially on lower extremities, prominent scale Psych: Appropriate mood and affect HEENT: NC/AT CV: RRR Resp: Breath sounds decreased bilaterally, no increased effort of breathing Abdomen: Soft, nontender Extremities: noted lichenified skin especially on lower extremities, prominent scale Results & Data Results & Data Vital Signs (Past 12 Hours) Vital Signs Temp Pulse Pulse Resp BP BP Pulse Ox 09/18/24 11:39 36.9 C 90 20 121/62 92 09/18/24 08:14 36.7 C 96 H 16 148/72 H 90 09/18/24 07:28 98 H 09/18/24 07:18 94 H 18 92 09/18/24 03:56 84 21 96 09/18/24 03:42 36.5 C 77 16 133/72 98 09/18/24 01:23 87 09/18/24 01:10 09/18/24 01:10 36.4 C L 84 20 139/72 98 09/18/24 00:54 36.4 C L 84 20 139/72 98 09/18/24 00:40 86 24 97 O2 Del Method O2 Flow Rate FiO2 09/18/24 11:39 Nasal Cannula 4 09/18/24 08:14 Nasal Cannula 4 09/18/24 07:28 09/18/24 07:18 Nasal Cannula 4 09/18/24 03:56 40 09/18/24 03:42 BiPAP 4 09/18/24 01:23 09/18/24 01:10 BiPAP 09/18/24 01:10 BiPAP 09/18/24 00:54 BiPAP 09/18/24 00:40 BiPAP 40 Diagnostic Findings Chest X-Ray 09/17/24 15:30 XR chest 1V portable CLINICAL HISTORY: weakness, falls, sob COMPARISON STUDY: No previous studies for comparison. FINDINGS: Lung volumes are normal. There is no pneumothorax or pleural effusion. There may be underlying emphysema. No consolidation is present. Pulmonary vascularity is normal. Cardiomediastinal silhouette is unremarkable. IMPRESSION: No acute cardiopulmonary findings. ACT 112: Negative or not required by law. Electronically signed by: Jaden Thorne M.D. 09/17/2024 4:15 PM Elbow X-Ray 09/17/24 15:30 XR elbow LT min 3V routine CLINICAL HISTORY: wound, hit door TECHNIQUE: 3 views of the left elbow were obtained. Comparison: None available at the time of this dictation. FINDINGS: There is no evidence of an acute fracture. Joint spaces are well-preserved. There is no prominence of the anterior or posterior fat pads to suggest an effusion. No soft tissue abnormality is seen. IMPRESSION: No evidence of acute osseous injury. ACT 112: Negative or not required by law. Electronically signed by: Ja Oneil M.D. 09/17/2024 4:[address] 09/17/24 15:31 CT OF THE HEAD WITHOUT CONTRAST CLINICAL HISTORY: Vision changes. COMPARISON STUDY: No previous studies for comparison. TECHNIQUE: Helical axial images of the head were obtained without IV contrast. Automated exposure control was utilized for the study. A dose lowering technique was utilized adhering to the principles of ALARA. FINDINGS: No acute intracranial hemorrhage, midline shift or mass effect is present. The ventricular system is unremarkable. The basal cisterns are patent. No extra-axial collections are present. There are no findings to suggest acute dural sinus thrombosis or acute territorial infarct. No significant calvarial abnormalities are present. Visualized portions of the sinuses and mastoid air cells are clear. IMPRESSION: No acute intracranial findings. ACT 112: Negative or not required by law. Electronically signed by: Jaden Thorne M.D. 09/17/2024 6:52 PM Head CTA 09/17/24 15:31 CTA ANGIOGRAPHY OF THE HEAD CLINICAL HISTORY: Vision changes. COMPARISON STUDY: No previous studies for comparison. TECHNIQUE: Helical axial images of the head were obtained following uneventful intravenous administration of 119 cc of Optiray. Sagittal and coronal reconstructions were viewed as well as maximal intensity projections on an independent 3-D workstation. Automated exposure control was utilized for the study. A dose lowering technique was utilized adhering to the principles of ALARA. CT DOSE: 1076.37 mGy.cm FINDINGS: This exam is mildly compromised by motion artifact. No acute intracranial hemorrhage, midline shift or mass effect is present. The ventricular system is normal. The basal cisterns are patent. There are no extra- axial collections. The bilateral M1, M2, A1 and A2 segments are patent. There is no intracranial aneurysm. The intracranial portions of the vertebral arteries are patent. The bilateral posterior inferior cerebellar arteries are patent. The basilar artery and bilateral posterior cerebral arteries are patent. No vessel occlusion within the posterior circulation is identified. Major dural sinuses are patent. IMPRESSION: No large vessel occlusion. No intracranial aneurysm. Exam mildly compromised by motion artifact. ACT 112: Negative or not required by law. Electronically signed by: Jaden Thorne M.D. 09/17/2024 6:59 PM Neck CTA 09/17/24 15:31 CT ANGIOGRAPHY OF THE NECK WITH CONTRAST CLINICAL HISTORY: Vision changes. COMPARISON STUDY: No previous studies for comparison. Technique: CT angiography of the carotid and vertebral arteries was obtained using Optiray and 3D reconstruction on an independent workstation. NASCET criteria was utilized. Automated exposure control was utilized for the study. A dose lowering technique was utilized adhering to the principles of ALARA. Findings: Severe emphysema within the visualized lung apices is noted. There is no cervical spine fracture. No cervical lymphadenopathy is present. This exam is mildly compromised by motion artifact. The bilateral common carotid, cervical internal carotid and vertebral arteries are patent. There is moderate atherosclerotic plaque within the proximal bilateral internal carotid arteries without resultant stenosis. There is no aneurysm or dissection within the neck. The CTA of the head will be reported separately. IMPRESSION: 1. Moderate atherosclerotic plaque within the carotid bifurcations without stenosis. No stenosis or dissection within the bilateral common carotid, cervical internal carotid or vertebral arteries. 2. Emphysema. ACT 112: Negative or not required by law. Electronically signed by: Jaden Thorne M.D. 09/17/2024 6:56 PM Chest CTA 09/17/24 20:54 Exam(s): CTA CHEST IV Amt: 119 ml EXAM: CT Angiography Chest With Intravenous Contrast CLINICAL HISTORY: Reason for exam: sob. TECHNIQUE: Axial computed tomographic angiography images of the chest with intravenous contrast. CTDI is 35 mGy and DLP is 774.68 mGy-cm. Automated exposure control was utilized for the study. A dose lowering technique was utilized adhering to the principles of ALARA. MIP reconstructed images were created and reviewed. 119 ML IV contrast is given. Excellent aortic and pulmonary arterial enhancement. Mild to moderate breathing/motion artifact. COMPARISON: Chest x-ray done earlier the same day. FINDINGS: Pulmonary arteries: No pulmonary embolism. Mild vascular prominence, nonspecific, may be chronic, cannot rule out mild CHF. Aorta: No dissection or aneurysm. Lungs: Severe emphysema. Pleural-parenchymal thickening posterior bilateral lower lobe lung, greater on the left, nonspecific, probably chronic. No consolidation. Pleural space: No pleural effusion. No pneumothorax. Heart: No cardiomegaly. No significant pericardial effusion. No evidence of elevated right heart pressures. Bones/joints: No acute fracture. Soft tissues: Unremarkable. Lymph nodes: No enlarged lymph nodes. IMPRESSION: 1. No pulmonary embolism. 2. Severe emphysema. 3. Probable scarring posterior costophrenic angles bilaterally. No consolidation or pleural effusion. Electronically signed by: Bri Haynes M.D. 09/17/24 23:54 PM
[2024-09-18] MEDS: FERROUS SULFATE 325 MG TAB PO SCH (12:48)
[2024-09-19 06:20] LABS: Basophils # (auto) 0.02 K/uL (0.00-0.20); Basophils % (auto) 0.3 %; Eosinophils # (auto) 0.01 K/uL (0.00-0.50); Eosinophils % (auto) 0.2 %; Hematocrit (blood only) 36.1 % (42.0-52.0); Hemoglobin 10.9 g/dl (14.0-18.0); Immature Granulocytes # (auto) 0.02 K/uL (0.01-0.20); Immature Granulocytes % (auto) 0.3 %; Lymphocytes # (auto) 0.82 K/uL (1.20-3.40); Lymphocytes % (auto) 12.6 %; Mean Corpuscular Hemoglobin 28.5 pg (25.0-34.0); Mean Corpuscular Hgb Conc 30.2 g/dL (32.0-36.0); Mean Corpuscular Volume 94.5 fL (80.0-100.0); Mean Platelet Volume 10.8 fL (9.4-12.4); Monocytes # (auto) 0.95 K/uL (0.11-0.59); Monocytes % (auto) 14.6 %; Platelet Count 160 K/uL (130-400); RDW Coefficient of Variation 13.4 % (11.5-14.5); RDW Standard Deviation 46.6 fL (36.4-46.3); Red Blood Count 3.82 M/uL (4.70-6.10); White Blood Count 6.52 K/ul (4.8-10.8)
[2024-09-19 06:53] LABS: BUN Creatinine Ratio 32.4 (10-20); Calcium 8.9 mg/dl (8.6-10.3)
[2024-09-19] MEDS: ENOXAPARIN INJ 40 MG/0.4 ML SYR SQ SCH (09:08)
--- NOTE | 2024-09-19 10:38 | Hospitalist Progress Note ---
Date of Service September 19, 2024 Assessment & Plan (1) Acute and chronic respiratory failure with hypercapnia: Plan Pt is a 84yoM with PMHx significant for COPD, past tobacco abuse presenting with concern for shortness of breath and acute on chronic hypoxic respiratory failure. Acute on Chronic respiratory failure with hypercapnia Secondary to COPD exacerbation Chest CTA with no PE Respiratory acidosis secondary to above Nebs RTC, prednisone course patient originally requiring BiPAP with baseline oxygen use of 4 L Patient has been improving and appears to be back to baseline oxygen use Pulmonary consult if without improvement Continue to monitor Repeat VBG Improving appears back to baseline Hallucinations Episodes of Agitation Patient alert and oriented x 3 However hallucinates at times Question for acute delirium versus alcohol withdrawal with noted tremorsAnd history of anxiety However both patient and his son denies use of alcohol Head CT unremarkable Consider brain MRI AWSS protocol with Ativan, Zyprexa previously prescribed discontinued Question of underlying dementia Delirium precautions. Frequent reorientation, avoid sedating medications Continue to monitor New onset anemia Iron deficiency anemia Patient unaware of previous diagnosis FOBT done at the ER was negative Anemia panel noting iron deficiency anemia Started on oral iron supplements Continue to monitor hemoglobin transfuse PRBC if hemoglobin less than 7 and or from symptomatic anemia Per the patient's son patient has never had a colonoscopy, will need close PCP follow-up for further workup Prediabetes Patient with noted hyperglycemia Hemoglobin A1c of 5.9 indicating a new diagnosis of prediabetes Encourage dietary changes as well as exercise PCP follow-up Skin dermatitis/Scaling Per patient's son, likely due to self-neglect as patient has personally refused to shower Encourage appropriate hygiene Consider dermatology follow-up Diet: regular DVT prophylaxis: Lovenox subcu CODE STATUS: DNR Dispo: PT/OT ordered for further recs Admission and Anticipated Discharge Date Admission Date: September 17, 2024 Subjective Patient was seen sitting up in bed Mumbling to himself appears to be responding to internal stimuli Per nursing, hallucinating towards the end of the day yesterday However patient alert and oriented x 3 on exam Denies any chronic use of alcohol but patient also tremulous Denies any shortness of breath at this time. Extensive discussion with patient's son and patient's son's at about 1 PM. They indicate that the patient does not typically drink alcohol. They note that hallucinations and self talk are new, denies a history of dementia. They do note a past history of anxiety and son notes that it can get worse throughout the day. Notes that he has not been using his home BiPAP for about 2 years.They also note that he does not currently follow with a psychometrician and that his skin issues started with his personal desire to not shower. They note that he self neglects. Review of Systems Review of Systems: All systems reviewed & are unremarkable except as noted in Subjective Physical Exam Physical Exam: General: Alert, orientedx3. No acute distress Skin: noted lichenified skin especially on lower extremities, prominent scale Psych: Appropriate mood and affect HEENT: NC/AT CV: RRR Resp: Breath sounds decreased bilaterally, no increased effort of breathing Abdomen: Soft, nontender Extremities: noted lichenified skin especially on lower extremities, prominent scale Results & Data Results & Data Vital Signs (Past 12 Hours) Vital Signs Temp Pulse Pulse Pulse Resp BP Pulse Ox 09/19/24 07:56 36.6 C 93 H 20 148/63 H 90 09/19/24 07:06 88 18 90 09/19/24 03:58 36.8 C 89 18 146/68 H 92 09/19/24 01:31 95 H 18 98 09/18/24 23:15 36.5 C 90 18 134/71 98 09/18/24 23:10 97 H 21 90 O2 Del Method O2 Flow Rate FiO2 09/19/24 07:56 Nasal Cannula 4 09/19/24 07:06 Nasal Cannula 4 09/19/24 03:58 Nasal Cannula 3 09/19/24 01:31 BiPAP 40 09/18/24 23:15 Room Air 09/18/24 23:10 45 Diagnostic Findings Chest X-Ray 09/17/24 15:30 XR chest 1V portable CLINICAL HISTORY: weakness, falls, sob COMPARISON STUDY: No previous studies for comparison. FINDINGS: Lung volumes are normal. There is no pneumothorax or pleural effusion. There may be underlying emphysema. No consolidation is present. Pulmonary vasc ularity is normal. Cardiomediastinal silhouette is unremarkable. IMPRESSION: No acute cardiopulmonary findings. ACT 112: Negative or not required by law. Electronically signed by: Jaden Thorne M.D. 09/17/2024 4:15 PM Elbow X-Ray 09/17/24 15:30 XR elbow LT min 3V routine CLINICAL HISTORY: wound, hit door TECHNIQUE: 3 views of the left elbow were obtained. Comparison: None available at the time of this dictation. FINDINGS: There is no evidence of an acute fracture. Joint spaces are well-preserved. There is no prominence of the anterior or posterior fat pads to suggest an effusion. No soft tissue abnormality is seen. IMPRESSION: No evidence of acute osseous injury. ACT 112: Negative or not required by law. Electronically signed by: Ja Oneil M.D. 09/17/2024 4:[address] 09/17/24 15:31 CT OF THE HEAD WITHOUT CONTRAST CLINICAL HISTORY: Vision changes. COMPARISON STUDY: No previous studies for comparison. TECHNIQUE: Helical axial images of the head were obtained without IV contrast. Automated exposure control was utilized for the study. A dose lowering technique was utilized adhering to the principles of ALARA. FINDINGS: No acute intracranial hemorrhage, midline shift or mass effect is present. The ventricular system is unremarkable. The basal cisterns are patent. No extra-axial collections are present. There are no findings to suggest acute dural sinus thrombosis or acute territorial infarct. No significant calvarial abnormalities are present. Visualized portions of the sinuses and mastoid air cells are clear. IMPRESSION: No acute intracranial findings. ACT 112: Negative or not required by law. Electronically signed by: Jaden Thorne M.D. 09/17/2024 6:52 PM Head CTA 09/17/24 15:31 CTA ANGIOGRAPHY OF THE HEAD CLINICAL HISTORY: Vision changes. COMPARISON STUDY: No previous studies for comparison. TECHNIQUE: Helical axial images of the head were obtained following uneventful intravenous administration of 119 cc of Optiray. Sagittal and coronal reconstructions were viewed as well as maximal intensity projections on an independent 3-D workstation. Automated exposure control was utilized for the study. A dose lowering technique was utilized adhering to the principles of ALARA. CT DOSE: 1076.37 mGy.cm FINDINGS: This exam is mildly compromised by motion artifact. No acute intracranial hemorrhage, midline shift or mass effect is present. The ventricular system is normal. The basal cisterns are patent. There are no extra- axial collections. The bilateral M1, M2, A1 and A2 segments are patent. There is no intracranial aneurysm. The intracranial portions of the vertebral arteries ar e patent. The bilateral posterior inferior cerebellar arteries are patent. The basilar artery and bilateral posterior cerebral arteries are patent. No vessel occlusion within the posterior circulation is identified. Major dural sinuses are patent. IMPRESSION: No large vessel occlusion. No intracranial aneurysm. Exam mildly compromised by motion artifact. ACT 112: Negative or not required by law. Electronically signed by: Jaden Thorne M.D. 09/17/2024 6:59 PM Neck CTA 09/17/24 15:31 CT ANGIOGRAPHY OF THE NECK WITH CONTRAST CLINICAL HISTORY: Vision changes. COMPARISON STUDY: No previous studies for comparison. Technique: CT angiography of the carotid and vertebral arteries was obtained using Optiray and 3D reconstruction on an independent workstation. NASCET criteria was utilized. Automated exposure control was utilized for the study. A dose lowering technique was utilized adhering to the principles of ALARA. Findings: Severe emphysema within the visualized lung apices is noted. There is no cervical spine fracture. No cervical lymphadenopathy is present. This exam is mildly compromised by motion artifact. The bilateral common carotid, cervical internal carotid and vertebral arteries are patent. There is moderate atherosclerotic plaque within the proximal bilateral internal carotid arteries without resultant stenosis. There is no aneurysm or dissection within the neck. The CTA of the head will be reported separately. IMPRESSION: 1. Moderate atherosclerotic plaque within the carotid bifurcations without stenosis. No stenosis or dissection within the bilateral common carotid, cervical internal carotid or vertebral arteries. 2. Emphysema. ACT 112: Negative or not required by law. Electronically signed by: Jaden Thorne M.D. 09/17/2024 6:56 PM Chest CTA 09/17/24 20:54 Exam(s): CTA CHEST IV Amt: 119 ml EXAM: CT Angiography Chest With Intravenous Contrast CLINICAL HISTORY: Reason for exam: sob. TECHNIQUE: Axial computed tomographic angiography images of the chest with intravenous contrast. CTDI is 35 mGy and DLP is 774.68 mGy-cm. Automated exposure control was utilized for the study. A dose lowering technique was utilized adhering to the principles of ALARA. MIP reconstructed images were created and reviewed. 119 ML IV contrast is given. Excellent aortic and pulmonary arterial enhancement. Mild to moderate breathing/motion artifact. COMPARISON: Chest x-ray done earlier the same day. FINDINGS: Pulmonary arteries: No pulmonary embolism. Mild vascular prominence, nonspecific, may be chronic, cannot rule out mild CHF. Aorta: No dissection or aneurysm. Lungs: Severe emphysema. Pleural-parenchymal thickening posterior bilateral lower lobe lung, greater on the left, nonspecific, probably chronic. No consolidation. Pleural space: No pleural effusion. No pneumothorax. Heart: No cardiomegaly. No significant pericardial effusion. No evidence of elevated right heart pressures. Bones/joints: No acute fracture. Soft tissues: Unremarkable. Lymph nodes: No enlarged lymph nodes. IMPRESSION: 1. No pulmonary embolism. 2. Severe emphysema. 3. Probable scarring posterior costophrenic angles bilaterally. No consolidation or pleural effusion. Electronically signed by: Bri Haynes M.D. 09/17/24 23:54 PM
[2024-09-19] MEDS ORDERED: Ativan IV Alcohol Withdrawal--Active Protocol IV PRN (12:39)
[2024-09-19] MEDS ORDERED: LORazepam 2 MG/1 ML VIAL IV PRN ×2 (12:39)
[2024-09-19] MEDS: LORazepam 2 MG/1 ML VIAL IV PRN (18:33)
[2024-09-19] MEDS: LEVALBUTEROL HCL 0.63 MG/3 ML NEB NEB PRN (19:00)
[2024-09-19] MEDS ORDERED: methylPREDNISolone 125 MG/2 ML VIAL IV ONE (19:05)
--- NOTE | 2024-09-19 19:13 | Communication Note ---
Date of Service: September 19, 2024 Patient desaturated due to oxygen tube kinking per staff and code purple was called. Oxygen saturation improved but unable to maintain above 88% while on oxygen mask. Also received IV Ativan prior to the episode for possible alcohol withdrawal. Placed patient on BiPAP. Will obtain chest x-ray and give a dose of IV Solu-Medrol. Also will add nebs as needed. Will consider further management based on chest x-ray results. Recommend to avoid excessive sedation. Patient is confirmed to be DNI/DNR.
--- NOTE | 2024-09-19 19:27 | Communication Note ---
Date of Service: September 19, 2024 Pt's son called and updated about recent events and need for bipap for this time. He verbalized understanding and agreement with the plan of care. Case also signed out to betting agency manager for kind followup of pending chest XR.
[2024-09-19] MEDS: MAGNESIUM SULFATE / D5W 1 GM/100 ML BAG IV ONE (19:42)
[2024-09-19] MEDS: methylPREDNISolone 20 MG in SYRINGE 0 ML IV ONE (19:42)
--- NOTE | 2024-09-19 19:48 | XRay Report ---
XR chest 1V portable CLINICAL HISTORY: Hypoxia TECHNIQUE: Single frontal radiograph of the chest was obtained. Comparison: Comparison is made to chest radiograph 09/17/2024 FINDINGS: No lines and tubes are seen. Calcified aortic knob is seen. Reticular interstitial opacities and emph ysema are seen. No evidence of pleural effusion or pneumothorax. IMPRESSION: Interstitial thickening without evidence of pneumonia. ACT 112: Negative or not required by law. Electronically signed by: Ja Oneil M.D. 09/19/2024 7:45 PM
[2024-09-19 19:59] LABS: Base Excess VBG 16.4 mEq/L; HCO3 VBG 45 mmol/L; Oxygen Saturation VBG 94.4 %; PCO2 VBG 80 mmHg (38-50); PO2 VBG 66 mmHg; pH VBG 7.36 (7.36-7.41)
[2024-09-20 06:58] LABS: Basophils # (auto) 0.01 K/uL (0.00-0.20); Basophils % (auto) 0.2 %; Hematocrit (blood only) 37.7 % (42.0-52.0); Hemoglobin 11.2 g/dl (14.0-18.0); Immature Granulocytes # (auto) 0.01 K/uL (0.01-0.20); Immature Granulocytes % (auto) 0.2 %; Lymphocytes # (auto) 0.87 K/uL (1.20-3.40); Lymphocytes % (auto) 15.3 %; Mean Corpuscular Hemoglobin 28.1 pg (25.0-34.0); Mean Corpuscular Hgb Conc 29.7 g/dL (32.0-36.0); Mean Corpuscular Volume 94.5 fL (80.0-100.0); Mean Platelet Volume 10.8 fL (9.4-12.4); Monocytes # (auto) 0.48 K/uL (0.11-0.59); Monocytes % (auto) 8.4 %; Neutrophils # (auto) 4.32 K/uL (1.40-6.50); Neutrophils % (auto) 75.9 %; Platelet Count 176 K/uL (130-400); RDW Coefficient of Variation 13.4 % (11.5-14.5); RDW Standard Deviation 46.7 fL (36.4-46.3); Red Blood Count 3.99 M/uL (4.70-6.10); White Blood Count 5.69 K/ul (4.8-10.8)
[2024-09-20 07:25] LABS: BUN Creatinine Ratio 29.9 (10-20); Calcium 8.8 mg/dl (8.6-10.3); Creatinine Clr Calc Pharmacy 82.2 ml/min; Magnesium 2.1 mg/dl (1.7-2.4); Phosphorus 3.3 mg/dl (2.5-4.9); Potassium 4.6 mmol/L (3.5-5.1)
--- NOTE | 2024-09-20 10:19 | Hospitalist Progress Note ---
Date of Service September 20, 2024 Assessment & Plan (1) Acute and chronic respiratory failure with hypercapnia: Plan Pt is a 84yoM with PMHx significant for COPD, past tobacco abuse presenting with concern for shortness of breath and acute on chronic hypoxic respiratory failure. Acute on Chronic respiratory failure with hypercapnia Secondary to COPD exacerbation Chest CTA with no PE Respiratory acidosis secondary to above Nebs RTC, prednisone course patient originally requiring BiPAP with baseline oxygen use of 4 L Patient had been improving and appeared to be back to baseline oxygen use However, in the evening on 09/19/2024, patient was a "code purple" with noted kinking in oxygen. chest x-ray at that time was unremarkable, VBG was repeated with noted persistent hypercapnia, patient was given a dose of IV steroids and placed back on BiPAP. Pulmonology was consulted for further recs for treatment optimization, appreciate recs. Continue to monitor Hallucinations Episodes of Agitation Patient alert and oriented x 3 However hallucinates at times Question for acute delirium versus alcohol withdrawal with noted tremorsAnd history of anxiety However both patient and his son denies use of alcohol Head CT unremarkable Consider brain MRI Question of underlying dementia Delirium precautions. Frequent reorientation, avoid sedating medications Continue to monitor New onset anemia Iron deficiency anemia Patient unaware of previous diagnosis FOBT done at the ER was negative Anemia panel noting iron deficiency anemia Started on oral iron supplements Continue to monitor hemoglobin transfuse PRBC if hemoglobin less than 7 and or from symptomatic anemia Per the patient's son patient has never had a colonoscopy, will need close PCP follow-up for further workup Prediabetes Patient with noted hyperglycemia Hemoglobin A1c of 5.9 indicating a new diagnosis of prediabetes Encourage dietary changes as well as exercise PCP follow-up Skin dermatitis/Scaling Per patient's son, likely due to self-neglect as patient has personally refused to shower Encourage appropriate hygiene Consider dermatology follow-up Diet: regular DVT prophylaxis: Lovenox subcu CODE STATUS: DNR Dispo: PT/OT ordered for further recs Admission and Anticipated Discharge Date Admission Date: September 17, 2024 Subjective patient was seen in the early a.m. BiPAP on face Slightly agitated but not really responsive to verbal stimuli Son contacted throughout the day and advised that patient previously followed with a wine manager out of [facility] Send states he will contact us with specific name after talking to other family members Review of Systems Review of Systems: All systems reviewed & are unremarkable except as noted in Subjective Physical Exam Physical Exam: General: Alert, orientedx3. No acute distress Skin: noted lichenified skin especially on lower extremities, prominent scale Psych: Appropriate mood and affect HEENT: NC/AT CV: RRR Resp: bipap on face, no increased effort of breathing Abdomen: Soft, nontender Extremities: noted lichenified skin especially on lower extremities, prominent scale Results & Data Results & Data Vital Signs (Past 12 Hours) Vital Signs Temp Pulse Pulse Pulse Resp BP BP 09/20/24 08:28 36.6 C 87 24 124/69 09/20/24 08:10 09/20/24 07:19 82 25 H 09/20/24 07:19 82 25 H 09/20/24 07:11 83 09/20/24 04:00 36.5 C 84 18 129/78 09/20/24 02:02 71 20 09/20/24 02:02 77 20 09/20/24 00:00 09/19/24 23:25 36.5 C 66 20 115/66 09/19/24 22:30 72 22 Pulse Ox Pulse Ox O2 Del Method O2 Del Method O2 Flow Rate FiO2 09/20/24 08:28 90 BiPAP 09/20/24 08:10 BiPAP 09/20/24 07:19 95 30 09/20/24 07:19 95 BiPAP 30 09/20/24 07:11 09/20/24 04:00 94 BiPAP 09/20/24 02:02 97 35 09/20/24 02:02 94 BiPAP 4 09/20/24 00:00 98 BiPAP 09/19/24 23:25 94 BiPAP 09/19/24 22:30 98 45 Diagnostic Findings Chest X-Ray 09/17/24 15:30 XR chest 1V portable CLINICAL HISTORY: weakness, falls, sob COMPARISON STUDY: No previous studies for comparison. FINDINGS: Lung volumes are normal. There is no pneumothorax or pleural effusion. There may be underlying emphysema. No consolidation is present. Pulmonary vascularity is normal. Cardiomediastinal silhouette is unremarkable. IMPRESSION: No acute cardiopulmonary findings. ACT 112: Negative or not required by law. Electronically signed by: Jaden Thorne M.D. 09/17/2024 4:15 PM Elbow X-Ray 09/17/24 15:30 XR elbow LT min 3V routine CLINICAL HISTORY: wound, hit door TECHNIQUE: 3 views of the left elbow were obtained. Comparison: None available at the time of this dictation. FINDINGS: There is no evidence of an acute fracture. Joint spaces are well-preserved. There is no prominence of the anterior or posterior fat pads to suggest an effusion. No soft tissue abnormality is seen. IMPRESSION: No evidence of acute osseous injury. ACT 112: Negative or not required by law. Electronically signed by: Ja Oneil M.D. 09/17/2024 4:[address] 09/17/24 15:31 CT OF THE HEAD WITHOUT CONTRAST CLINICAL HISTORY: Vision changes. COMPARISON STUDY: No previous studies for comparison. TECHNIQUE: Helical axial images of the head were obtained without IV contrast. Automated exposure control was utilized for the study. A dose lowering technique was utilized adhering to the principles of ALARA. FINDINGS: No acute intracranial hemorrhage, midline shift or mass effect is present. The ventricular system is unremarkable. The basal cisterns are patent. No extra-axial collections are present. There are no findings to suggest acute dural sinus thrombosis or acute territorial infarct. No significant calvarial abnormalities are present. Visualized portions of the sinuses and mastoid air cells are clear. IMPRESSION: No acute intracranial findings. ACT 112: Negative or not required by law. Electronically signed by: Jaden Thorne M.D. 09/17/2024 6:52 PM Head CTA 09/17/24 15:31 CTA ANGIOGRAPHY OF THE HEAD CLINICAL HISTORY: Vision changes. COMPARISON STUDY: No previous studies for comparison. TECHNIQUE: Helical axial images of the head were obtained following uneventful intravenous administration of 119 cc of Optiray. Sagittal and coronal reconstructions were viewed as well as maximal intensity projections on an independent 3-D workstation. Automated exposure control was utilized for the study. A dose lowering technique was utilized adhering to the principles of ALARA. CT DOSE: 1076.37 mGy.cm FINDINGS: This exam is mildly compromised by motion artifact. No acute intracranial hemorrhage, midline shift or mass effect is present. The ventricular system is normal. The basal cisterns are patent. There are no extra- axial collections. The bilateral M1, M2, A1 and A2 segments are patent. There is no intracranial aneurysm. The intracranial portions of the vertebral arteries are patent. The bilateral posterior inferior cerebellar arteries are patent. The basilar artery and bilateral posterior cerebral arteries are patent. No vessel occlusion within the posterior circulation is identified. Major dural sinuses are patent. IMPRESSION: No large vessel occlusion. No intracranial aneurysm. Exam mildly compromised by motion artifact. ACT 112: Negative or not required by law. Electronically signed by: Jaden Thorne M.D. 09/17/2024 6:59 PM Neck CTA 09/17/24 15:31 CT ANGIOGRAPHY OF THE NECK WITH CONTRAST CLINICAL HISTORY: Vision changes. COMPARISON STUDY: No previous studies for comparison. Technique: CT angiography of the carotid and vertebral arteries was obtained using Optiray and 3D reconstruction on an independent workstation. NASCET criteria was utilized. Automated exposure control was utilized for the study. A dose lowering technique was utilized adhering to the principles of ALARA. Findings: Severe emphysema within the visualized lung apices is noted. There is no cervical spine fracture. No cervical lymphadenopathy is present. This exam is mildly compromised by motion artifact. The bilateral common carotid, cervical internal carotid and vertebral arteries are patent. There is moderate atherosclerotic plaque within the proximal bilateral internal carotid arteries without resultant stenosis. There is no aneurysm or dissection within the neck. The CTA of the head will be reported separately. IMPRESSION: 1. Moderate atherosclerotic plaque within the carotid bifurcations without stenosis. No stenosis or dissection within the bilateral common carotid, cervical internal carotid or vertebral arteries. 2. Emphysema. ACT 112: Negative or not required by law. Electronically signed by: Jaden Thorne M.D. 09/17/2024 6:56 PM Chest CTA 09/17/24 20:54 Exam(s): CTA CHEST IV Amt: 119 ml EXAM: CT Angiography Chest With Intravenous Contrast CLINICAL HISTORY: Reason for exam: sob. TECHNIQUE: Axial computed tomographic angiography images of the chest with intravenous contrast. CTDI is 35 mGy and DLP is 774.68 mGy-cm. Automated exposure control was utilized for the study. A dose lowering technique was utilized adhering to the principles of ALARA. MIP reconstructed images were created and reviewed. 119 ML IV contrast is given. Excellent aortic and pulmonary arterial enhancement. Mild to moderate breathing/motion artifact. COMPARISON: Chest x-ray done earlier the same day. FINDINGS: Pulmonary arteries: No pulmonary embolism. Mild vascular prominence, nonspecific, may be chronic, cannot rule out mild CHF. Aorta: No dissection or aneurysm. Lungs: Severe emphysema. Pleural-parenchymal thickening posterior bilateral lower lobe lung, greater on the left, nonspecific, probably chronic. No consolidation. Pleural space: No pleural effusion. No pneumothorax. Heart: No cardiomegaly. No significant pericardial effusion. No evidence of elevated right heart pressures. Bones/joints: No acute fracture. Soft tissues: Unremarkable. Lymph nodes: No enlarged lymph nodes. IMPRESSION: 1. No pulmonary embolism. 2. Severe emphysema. 3. Probable scarring posterior costophrenic angles bilaterally. No consolidation or pleural effusion. Electronically signed by: Bri Haynes M.D. 09/17/24 23:54 PM Chest X-Ray 09/19/24 19:02 XR chest 1V portable CLINICAL HISTORY: Hypoxia TECHNIQUE: Single frontal radiograph of the chest was obtained. Comparison: Comparison is made to chest radiograph 09/17/2024 FINDINGS: No lines and tubes are seen. Calcified aortic knob is seen. Reticular interstitial opacities and emphysema are seen. No evidence of pleural effusion or pneumothorax. IMPRESSION: Interstitial thickening without evidence of pneumonia. ACT 112: Negative or not required by law. Electronically signed by: Ja Oneil M.D. 09/19/2024 7:45 PM
[2024-09-20] MEDS: UMECLIDINIUM/VILANTEROL 62.5/25MCG 7 PUFFS/INHALER INH SCH (12:20)
[2024-09-20] MEDS ORDERED: ALBUT/IPRATROP 3MG/0.5MG NEB 3 ML VIAL NEB PRN (12:48)
[2024-09-20 12:56] LABS: iSTAT Arterial Blood Gas HCO3 44 meg/L (19-24); iSTAT Arterial Blood Gas pCO2 78 mmHg (35-46); iSTAT Arterial Blood Gas pH 7.36 (7.35-7.45); iSTAT Arterial Blood Gas pO2 60 mmHg (80-95); iSTAT Carbon Dioxide 46 mmol/L (24-31); iSTAT FiO2 30 %; iSTAT Hematocrit 35 % (42-52); iSTAT Hemoglobin 11.9 g/dl (14.0-18.0); iSTAT Potassium 4.1 mmol/L (3.3-5.0); iSTAT Sample Type Arterial; iSTAT Sodium 138 mmol/L (135-144)
--- NOTE | 2024-09-20 12:56 | Pulmonary Consultation ---
Date of Consultation September 20, 2024 Assessment & Plan (1) Acute and chronic respiratory failure with hypercapnia: Patient clearly with evidence of acute on chronic hypercapnic respiratory failure. ABG completed just now reveals continued mild acidosis. Will adjust BiPAP settings from 12 over 5 to 15/5 to improve ventilation. Unclear whether the patient uses an NIV or BiPAP at home. He would be an excellent candidate for NIV given his likely COPD diagnosis and chronic hypercapnic respiratory failure. I have requested records from his previous cardiac exercise specialist and PFTs. Patient notes that he was seeing pulmonary medicine at an outside facility before perhaps through [facility]. I discussed this with the charge nurse who is going to attempt to get records. Unclear what home medications the patient is on in terms of COPD. Patient does relate he is on chronic oxygen therapy at [facility], but does not know the flow rate. Would target goal O2 saturations of 89% to 93%. I would also order a baseline echocardiogram to evaluate for any significant cardiac pathology. (2) Acute exacerbation of chronic obstructive pulmonary disease: Agree with low-dose prednisone at this time. He is not overtly bronchospastic, but it appears that he was on admission. Repeat procalcitonin and if negative, continue to hold off on antibiotics as there is no clear evidence of pneumonia at this present time. Will transition the patient off Anoro Ellipta and place him on nebulized budesonide and formoterol. As above, requesting outpatient records including pulmonary notes, PFT results and CT imaging. He appears to have fairly advanced disease based on his clinical picture and CT chest imaging. He is currently DNR/DNI as per the order in the chart. I would recommend discussion with the patient and his family regarding his CODE STATUS and goals of care. Palliative care consultation may be of benefit. (3) Dyspnea: I suspect he has chronic dyspnea to a degree. Fortunately, chest CT on admission did not reveal PE. He does have severe emphysema. I suspect his dyspnea is likely related to severe underlying COPD. Smoking history and occupational history is currently unclear. History of Present Illness Reason for Consultation: " Acute on chronic respiratory failure, med optimization " Attending Physician: Valerie Hoffman MD History of Present Illness History is limited from the patient as he is currently on BiPAP and difficult to understand. No family at bedside available to give collateral information. Patient's son Brian over the phone, but he was not available. Voicemail left. I was able to review the chart and discussed with the bedside RT he was able to give some collateral information. Patient denies any significant chest pain currently. He does endorse some mild shortness of breath. He is on BiPAP settings of 12/5 with an FiO2 of 30%. He d enies any overt cough at present. Per the H&P patient resides at [facility] and apparently had intermittent "white flashes in both eyes". The RT who was present during the ER visit also indicated that that was his main complaint. Apparently his O2 sats were 60% upon arrival to the ER. Unclear whether the patient was on supplemental oxygen with these saturations. He had a chest CTA on admission with IV contrast which did not reveal any pulmonary embolism. Severe pulmonary edema and probable scarring in the post inferior costophrenic angles bilaterally noted. ABG completed on BiPAP at 12/5 and 30% FiO2 with an 18 breaths/min backup right as follows 7.36/78/60/44. Patient still remains with mild respiratory acidosis. Patient replaced on 20 mg prednisone, Anoro Ellipta and scheduled DuoNebs. Blood cultures drawn on admission negative to date. Apparently this morning the patient desaturated due to oxygen tube kinking and developed worsening respiratory distress. He was placed back on BiPAP. Chest x-ray obtained today revealed interstitial thickening without evidence of pneumonia. Pro-Serge was negative on admission. Nasal MRSA screen negative as well. Allergies Allergy/AdvReac Type Severity Reaction Status Date / Time No Known Allergies Allergy Unverified 09/17/24 22:43 Patient History Social History Smoking Status: Former smoker Tobacco Type: Cigarettes Hx Alcohol Use: No Hx Substance Use: No Preferred Language: [place] Communication Ability: Effective Landscape Nurseryman Required: No Beliefs That Will Affect Care: None Current Living Situation: Personal Care Facility Feels Safe at Home: Yes Safety Concerns: Feels Safe At This Time Assistive Devices: Oxygen - Continuous and Scooter/Electric Scooter Review of Systems Review of Systems: All systems reviewed & are unremarkable except as noted in HPI & below Physical Exam Physical Exam: Constitutional: Elderly and frail appearing in mild distress. Eyes: Pupils are equal round and reactive to light. Conjunctivae are normal. Anicteric sclera. Ears nose, mouth and throat: BiPAP mask in place. No obvious cyanosis. Neck: Trachea is midline. Visual inspection is normal. Respiratory: Coarse lung sounds bilaterally with diminishment at the bases. Prolonged phase of exhalation. Cardiovascular: Regular rate and rhythm. No murmurs. No edema. Gastrointestinal: Normal bowel sounds, soft, nontender and nondistended. No hepatosplenomegaly noted. Musculoskeletal: No cyanosis. Patient is able to move all extremities. Strength is 5 out of 5 in the upper and lower extremities. Skin: No rashes, warm dry and intact. Neurologic: No obvious focal neurological deficits seen. Psychiatric: Alert and oriented x3 with a euthymic affect. Results & Data Results & Data Vital Signs (Past 12 Hours) Vital Signs Temp Pulse Pulse Pulse Resp BP Pulse Ox 09/20/24 12:24 76 22 90 09/20/24 12:23 76 22 90 09/20/24 11:34 36.4 C L 78 20 118/65 91 09/20/24 08:28 36.6 C 87 24 124/69 90 09/20/24 08:10 09/20/24 07:19 82 25 H 95 09/20/24 07:19 82 25 H 95 09/20/24 07:11 83 09/20/24 04:00 36.5 C 84 18 129/78 94 09/20/24 02:02 71 20 97 09/20/24 02:02 77 20 94 O2 Del Method O2 Flow Rate FiO2 09/20/24 12:24 30 09/20/24 12:23 BiPAP 30 09/20/24 11:34 BiPAP 09/20/24 08:28 BiPAP 09/20/24 08:10 BiPAP 09/20/24 07:19 30 09/20/24 07:19 BiPAP 30 09/20/24 07:11 09/20/24 04:00 BiPAP 09/20/24 02:02 35 09/20/24 02:02 BiPAP 4 PG Care Time/CCT Total # of Minutes Spent Total Time Spent with Patient: Total time spent is greater than 50% in coordination of care (as documented) at patient's floor/unit and/or counseling patient: Coding Level of Care Code 90847 INT INP/OBS CARE 3/75MIN Diagnoses Acute and chronic respiratory failure with hypercapnia J96.22 Acute exacerbation of chronic obstructive pulmonary disease J44.1 Dyspnea R06.00
[2024-09-20] MEDS: BUDESONIDE 0.5 MG/2 ML VIAL (PULMICORT) NEB SCH (19:38)
[2024-09-20] MEDS: FORMOTEROL 20 MCG/2 ML VIAL NEB SCH (19:38)
[2024-09-21 06:04] LABS: Basophils # (auto) 0.01 K/uL (0.00-0.20); Basophils % (auto) 0.2 %; Eosinophils # (auto) 0.01 K/uL (0.00-0.50); Eosinophils % (auto) 0.2 %; Hematocrit (blood only) 35.5 % (42.0-52.0); Hemoglobin 10.7 g/dl (14.0-18.0); Immature Granulocytes # (auto) 0.01 K/uL (0.01-0.20); Immature Granulocytes % (auto) 0.2 %; Lymphocytes # (auto) 0.75 K/uL (1.20-3.40); Mean Corpuscular Hemoglobin 28.3 pg (25.0-34.0); Mean Corpuscular Hgb Conc 30.1 g/dL (32.0-36.0); Mean Corpuscular Volume 93.9 fL (80.0-100.0); Mean Platelet Volume 10.9 fL (9.4-12.4); Monocytes # (auto) 0.54 K/uL (0.11-0.59); Monocytes % (auto) 8.7 %; Neutrophils # (auto) 4.91 K/uL (1.40-6.50); Neutrophils % (auto) 78.7 %; Platelet Count 161 K/uL (130-400); RDW Coefficient of Variation 13.3 % (11.5-14.5); RDW Standard Deviation 45.6 fL (36.4-46.3); Red Blood Count 3.78 M/uL (4.70-6.10); White Blood Count 6.23 K/ul (4.8-10.8)
[2024-09-21 06:25] LABS: BUN Creatinine Ratio 34.8 (10-20); Calcium 8.6 mg/dl (8.6-10.3); Creatinine Clr Calc Pharmacy 83.5 ml/min; Phosphorus 2.8 mg/dl (2.5-4.9); Potassium 4.5 mmol/L (3.5-5.1)
[2024-09-21 07:53] LABS: iSTAT Arterial Blood Gas HCO3 44 meg/L (19-24); iSTAT Arterial Blood Gas pCO2 70 mmHg (35-46); iSTAT Arterial Blood Gas pH 7.41 (7.35-7.45); iSTAT Arterial Blood Gas pO2 85 mmHg (80-95); iSTAT Carbon Dioxide 46 mmol/L (24-31); iSTAT Hematocrit 36 % (42-52); iSTAT Hemoglobin 12.2 g/dl (14.0-18.0); iSTAT Potassium 4.2 mmol/L (3.3-5.0); iSTAT Sample Type Arterial; iSTAT Sodium 137 mmol/L (135-144)
[2024-09-21 08:26] LABS: Base Excess VBG 16.4 mEq/L; HCO3 VBG 46 mmol/L; Oxygen Saturation VBG < 60.0 %; PCO2 VBG 84 mmHg (38-50); PO2 VBG 30 mmHg; pH VBG 7.35 (7.36-7.41)
--- NOTE | 2024-09-21 11:19 | Hospitalist Progress Note ---
Date of Service September 21, 2024 Assessment & Plan (1) Acute and chronic respiratory failure with hypercapnia: Plan Pt is a 84yoM with PMHx significant for COPD, past tobacco abuse presenting with concern for shortness of breath and acute on chronic hypoxic respiratory failure. Acute on Chronic respiratory failure with hypercapnia Secondary to COPD exacerbation Chest CTA with no PE Respiratory acidosis secondary to above Nebs RTC, prednisone course patient originally requiring BiPAP with baseline oxygen use of 4 L Patient had been improving and appeared to be back to baseline oxygen use However, in the evening on 09/19/2024, patient was a "code purple" with noted kinking in oxygen. chest x-ray at that time was unremarkable, VBG was repeated with noted persistent hypercapnia, patient was given a dose of IV steroids and placed back on BiPAP. Pulmonology was consulted for further recs for treatment optimization, appreciate recs. Palliative care consult also ordered per recs of pulmonology, patient's son agreeable Continue to monitor Hallucinations Episodes of Agitation Patient alert and oriented x 3 However hallucinates at times Question for acute delirium versus alcohol withdrawal with noted tremors and history of anxiety However both patient and his son deny use of alcohol Head CT unremarkable Consider brain MRI Question of underlying dementia Delirium precautions. Frequent reorientation, avoid sedating medications Continue to monitor New onset anemia Iron deficiency anemia Patient unaware of previous diagnosis FOBT done at the ER was negative Anemia panel noting iron deficiency anemia Started on oral iron supplements Continue to monitor hemoglobin transfuse PRBC if hemoglobin less than 7 and or from symptomatic anemia Per the patient's son patient has never had a colonoscopy, will need close PCP follow-up for further workup Continue to monitor H/H Prediabetes Patient with noted hyperglycemia Hemoglobin A1c of 5.9 indicating a new diagnosis of prediabetes Encourage dietary changes as well as exercise PCP follow-up Skin dermatitis/Scaling Per patient's son, likely due to self-neglect as patient has personally refused to shower Encourage appropriate hygiene Consider dermatology follow-up Wound Care consulted -recommending Amlactin, ordered Diet: regular DVT prophylaxis: Lovenox subcu CODE STATUS: DNR/DNI Dispo: PT/OT ordered for further recs Admission and Anticipated Discharge Date Admission Date: September 17, 2024 Subjective patient was seen laying in bed. Was not on BiPAP at the time, alert and oriented x 3 Denied any shortness of breath at that time Per recs of pulmonology, discussion with patient's son Tony about patient's CODE STATUS and goals of care Tony agreeable to palliative care consult Review of Systems Review of Systems: All systems reviewed & are unremarkable except as noted in Subjective Physical Exam Physical Exam: General: Alert, orientedx3. No acute distress Skin: noted lichenified skin especially on lower extremities, prominent scale Psych: Appropriate mood and affect HEENT: NC/AT CV: RRR Resp: breath sounds present, no increased effort of breathing Abdomen: Soft, nontender Extremities: noted lichenified skin especially on lower extremities, prominent scale Results & Data Results & Data Vital Signs (Past 12 Hours) Vital Signs Temp Pulse Pulse Resp BP Pulse Ox Pulse Ox 09/21/24 07:53 36.4 C L 74 18 111/61 100 09/21/24 07:44 09/21/24 07:26 80 09/21/24 07:24 76 15 95 09/21/24 03:50 36.6 C 72 18 103/62 97 09/21/24 03:07 72 18 97 09/21/24 00:00 94 09/21/24 00:00 36.7 C 87 18 107/63 95 O2 Del Method O2 Del Method O2 Flow Rate FiO2 09/21/24 07:53 Nasal Cannula 3 09/21/24 07:44 Nasal Cannula 5 09/21/24 07:26 09/21/24 07:24 Nasal Cannula 2.5 09/21/24 03:50 BiPAP 09/21/24 03:07 40 09/21/24 00:00 BiPAP 09/21/24 00:00 BiPAP Diagnostic Findings Chest X-Ray 09/17/24 15:30 XR chest 1V portable CLINICAL HISTORY: weakness, falls, sob COMPARISON STUDY: No previous studies for comparison. FINDINGS: Lung volumes are normal. There is no pneumothorax or pleural effusion. There may be underlying emphysema. No consolidation is present. Pulmonary vascularity is normal. Cardiomediastinal silhouette is unremarkable. IMPRESSION: No acute cardiopulmonary findings. ACT 112: Negative or not required by law. Electronically signed by: Jdaen Thorne M.D. 09/17/2024 4:15 PM Elbow X-Ray 09/17/24 15:30 XR elbow LT min 3V routine CLINICAL HISTORY: wound, hit door TECHNIQUE: 3 views of the left elbow were obtained. Comparison: None available at the time of this dictation. FINDINGS: There is no evidence of an acute fracture. Joint spaces are well-preserved. There is no prominence of the anterior or posterior fat pads to suggest an effusion. No soft tissue abnormality is seen. IMPRESSION: No evidence of acute osseous injury. ACT 112: Negative or not required by law. Electronically signed by: Ja Oneil M.D. 09/17/2024 4:[address] 09/17/24 15:31 CT OF THE HEAD WITHOUT CONTRAST CLINICAL HISTORY: Vision changes. COMPARISON STUDY: No previous studies for comparison. TECHNIQUE: Helical axial images of the head were obtained without IV contrast. Automated exposure control was utilized for the study. A dose lowering technique was utilized adhering to the principles of ALARA. FINDINGS: No acute intracranial hemorrhage, midline shift or mass effect is present. The ventricular system is unremarkable. The basal cisterns are patent. No extra-axial collections are present. There are no findings to suggest acute dural sinus thrombosis or acute territorial infarct. No significant calvarial abnormalities are present. Visualized portions of the sinuses and mastoid air cells are clear. IMPRESSION: No acute intracranial findings. ACT 112: Negative or not required by law. Electronically signed by: Jaden Thorne M.D. 09/17/2024 6:52 PM Head CTA 09/17/24 15:31 CTA ANGIOGRAPHY OF THE HEAD CLINICAL HISTORY: Vision changes. COMPARISON STUDY: No previous studies for comparison. TECHNIQUE: Helical axial images of the head were obtained following uneventful intravenous administration of 119 cc of Optiray. Sagittal and coronal recon structions were viewed as well as maximal intensity projections on an independent 3-D workstation. Automated exposure control was utilized for the study. A dose lowering technique was utilized adhering to the principles of ALARA. CT DOSE: 1076.37 mGy.cm FINDINGS: This exam is mildly compromised by motion artifact. No acute intracranial hemorrhage, midline shift or mass effect is present. The ventricular system is normal. The basal cisterns are patent. There are no extra- axial collections. The bilateral M1, M2, A1 and A2 segments are patent. There is no intracranial aneurysm. The intracranial portions of the vertebral arteries are patent. The bilateral posterior inferior cerebellar arteries are patent. The basilar artery and bilateral posterior cerebral arteries are patent. No vessel occlusion within the posterior circulation is identified. Major dural sinuses are patent. IMPRESSION: No large vessel occlusion. No intracranial aneurysm. Exam mildly compromised by motion artifact. ACT 112: Negative or not required by law. Electronically signed by: Jaden Thorne M.D. 09/17/2024 6:59 PM Neck CTA 09/17/24 15:31 CT ANGIOGRAPHY OF THE NECK WITH CONTRAST CLINICAL HISTORY: Vision changes. COMPARISON STUDY: No previous studies for comparison. Technique: CT angiography of the carotid and vertebral arteries was obtained using Optiray and 3D reconstruction on an independent workstation. NASCET criteria was utilized. Automated exposure control was utilized for the study. A dose lowering technique was utilized adhering to the principles of ALARA. Findings: Severe emphysema within the visualized lung apices is noted. There is no cervical spine fracture. No cervical lymphadenopathy is present. This exam is mildly compromised by motion artifact. The bilateral common carotid, cervical internal carotid and vertebral arteries are patent. There is moderate atherosclerotic plaque within the proximal bilateral internal carotid arteries without resultant stenosis. There is no aneurysm or dissection within the neck. The CTA of the head will be reported separately. IMPRESSION: 1. Moderate atherosclerotic plaque within the carotid bifurcations without stenosis. No stenosis or dissection within the bilateral common carotid, cervical internal carotid or vertebral arteries. 2. Emphysema. ACT 112: Negative or not required by law. Electronically signed by: Jaden Thorne M.D. 09/17/2024 6:56 PM Chest CTA 09/17/24 20:54 Exam(s): CTA CHEST IV Amt: 119 ml EXAM: CT Angiography Chest With Intravenous Contrast CLINICAL HISTORY: Reason for exam: sob. TECHNIQUE: Axial computed tomographic angiography images of the chest with intravenous contrast. CTDI is 35 mGy and DLP is 774.68 mGy-cm. Automated exposure control was utilized for the study. A dose lowering technique was utilized adhering to the principles of ALARA. MIP reconstructed images were created and reviewed. 119 ML IV contrast is given. Excellent aortic and pulmonary arterial enhancement. Mild to moderate breathing/motion artifact. COMPARISON: Chest x-ray done earlier the same day. FINDINGS: Pulmonary arteries: No pulmonary embolism. Mild vascular prominence, nonspecific, may be chronic, cannot rule out mild CHF. Aorta: No dissection or aneurysm. Lungs: Severe emphysema. Pleural-parenchymal thickening posterior bilateral lower lobe lung, greater on the left, nonspecific, probably chronic. No consolidation. Pleural space: No pleural effusion. No pneumothorax. Heart: No cardiomegaly. No significant pericardial effusion. No evidence of elevated right heart pressures. Bones/joints: No acute fracture. Soft tissues: Unremarkable. Lymph nodes: No enlarged lymph nodes. IMPRESSION: 1. No pulmonary embolism. 2. Severe emphysema. 3. Probable scarring posterior costophrenic angles bilaterally. No consolidation or pleural effusion. Electronically signed by: Bri Haynes M.D. 09/17/24 23:54 PM Chest X-Ray 09/19/24 19:02 XR chest 1V portable CLINICAL HISTORY: Hypoxia TECHNIQUE: Single frontal radiograph of the chest was obtained. Comparison: Comparison is made to chest radiograph 09/17/2024 FINDINGS: No lines and tubes are seen. Calcified aortic knob is seen. Reticular interstitial opacities and emphysema are seen. No evidence of pleural effusion or pneumothorax. IMPRESSION: Interstitial thickening without evidence of pneumonia. ACT 112: Negative or not required by law. Electronically signed by: Ja Oneil M.D. 09/19/2024 7:45 PM
--- NOTE | 2024-09-21 17:31 | Pulmonology Progress Note ---
Date of Service September 21, 2024 Assessment & Plan (1) Acute and chronic respiratory failure with hypercapnia: Plan: The patient has done quite well with BiPAP therapy and his acidosis has improved. He is to continue BiPAP anytime he sleeps. He notes that he has a BiPAP at home, but has not been particularly compliant and is willing to comply better with BiPAP therapy at this time. (2) Acute exacerbation of chronic obstructive pulmonary disease: Plan: Discontinue prednisone after 5 days total. Would recommend discharging the patient home on maintenance Pulmicort nebs and Perforomist as he is getting in the hospital. No clear infectious etiology currently. He is currently DNR/DNI as per the order in the chart. I would recommend discussion with the patient and his family regarding his CODE STATUS and goals of care. Palliative care consultation may be of benefit. (3) Dyspnea: Plan: Echocardiogram revealed grade 2 diastolic dysfunction and a normal LVEF. Right ventricular systolic pressures were estimated at 30 to 40 mmHg. Dyspnea likely combination of severe COPD and diastolic dysfunction. Recommend maintaining euvolemia. Plan No further recommendations at this point in time. Thank you for the consult. Pulmonary to sign off. Admission and Anticipated Discharge Date Admission Date: September 17, 2024 Subjective Patient is significantly improved on exam today and notes that his shortness of breath is much better. He also notes less confusion and denies any chest pain or fevers currently. Review of Systems Review of Systems: All systems reviewed & are unremarkable except as noted in HPI & below Physical Exam Physical Exam: Constitutional: Elderly and frail appearing, no apparent distress. Eyes: Pupils are equal round and reactive to light. Conjunctivae are normal. Anicteric sclera. Ears nose, mouth and throat: Mallampati 2. No evidence of perioral cyanosis. Nasal cannula in place. Neck: Trachea is midline. Visual inspection is normal. Respiratory: Coarse lung sounds bilaterally with diminishment at the bases. Prolonged phase of exhalation. Cardiovascular: Regular rate and rhythm. No murmurs. No edema. Gastrointestinal: Normal bowel sounds, soft, nontender and nondistended. No hepatosplenomegaly noted. Musculoskeletal: No cyanosis. Patient is able to move all extremities. Strength is 5 out of 5 in the upper and lower extremities. Skin: No rashes, warm dry and intact. Neurologic: No obvious focal neurological deficits seen. Psychiatric: Alert and oriented x3 with a euthymic affect. Results & Data Results & Data Vital Signs (Past 12 Hours) Vital Signs Temp Pulse Pulse Resp BP BP Pulse Ox 09/21/24 15:30 36.6 C 86 16 148/67 H 90 09/21/24 14:41 96 H 09/21/24 11:32 36.7 C 74 18 132/72 97 09/21/24 07:53 36.4 C L 74 18 111/61 100 09/21/24 07:44 09/21/24 07:26 80 09/21/24 07:24 76 15 95 O2 Del Method O2 Flow Rate 09/21/24 15:30 Nasal Cannula 4.5 09/21/24 14:41 09/21/24 11:32 Nasal Cannula 3 09/21/24 07:53 Nasal Cannula 3 09/21/24 07:44 Nasal Cannula 5 09/21/24 07:26 09/21/24 07:24 Nasal Cannula 2.5 PG Care Time/CCT Total # of Minutes Spent Total Time Spent with Patient: Total time spent is greater than 50% in coordination of care (as documented) at patient's floor/unit and/or counseling patient: Coding Level of Care Code 92530 SUB INP/OBS CARE 2/35MIN Diagnoses Acute and chronic respiratory failure with hypercapnia J96.22 Acute exacerbation of chronic obstructive pulmonary disease J44.1 Dyspnea R06.00
[2024-09-21] MEDS: AMMONIUM LACTATE 12% LOTION 225 GM BTL EXT SCH (21:25)
--- NOTE | 2024-09-22 05:51 | Electrocardiogram Report ---
Test Reason : Blood Pressure : */* mmHG Vent. Rate : 86 BPM Atrial Rate : 86 BPM P-R Int : 128 ms QRS Dur : 106 ms QT Int : 354 ms P-R-T Axes : 80 14 76 degrees QTcB Int : 423 ms Sinus rhythm with Premature atrial complexes Incomplete right bundle branch block Borderline ECG No previous ECGs available Confirmed by Mati Woods ([id number]) on 09/22/2024 5:51:03 AM Referred By: NO PCP Confirmed By: Mati Woods
[2024-09-22 06:12] LABS: Basophils # (auto) 0.01 K/uL (0.00-0.20); Basophils % (auto) 0.1 %; Eosinophils # (auto) 0.02 K/uL (0.00-0.50); Eosinophils % (auto) 0.3 %; Hematocrit (blood only) 39.8 % (42.0-52.0); Immature Granulocytes # (auto) 0.02 K/uL (0.01-0.20); Immature Granulocytes % (auto) 0.3 %; Lymphocytes # (auto) 1.07 K/uL (1.20-3.40); Lymphocytes % (auto) 15.7 %; Mean Corpuscular Hgb Conc 30.2 g/dL (32.0-36.0); Mean Corpuscular Volume 92.8 fL (80.0-100.0); Mean Platelet Volume 10.5 fL (9.4-12.4); Monocytes # (auto) 0.93 K/uL (0.11-0.59); Monocytes % (auto) 13.6 %; Neutrophils # (auto) 4.78 K/uL (1.40-6.50); Platelet Count 169 K/uL (130-400); RDW Coefficient of Variation 13.2 % (11.5-14.5); RDW Standard Deviation 44.5 fL (36.4-46.3); Red Blood Count 4.29 M/uL (4.70-6.10); White Blood Count 6.83 K/ul (4.8-10.8)
[2024-09-22 06:40] LABS: BUN Creatinine Ratio 32.8 (10-20); Calcium 8.9 mg/dl (8.6-10.3); Creatinine Clr Calc Pharmacy 77.4 ml/min; Magnesium 1.7 mg/dl (1.7-2.4); Phosphorus 2.6 mg/dl (2.5-4.9); Potassium 4.3 mmol/L (3.5-5.1)
--- NOTE | 2024-09-22 08:44 | Palliative Care Consultation ---
Date of Consultation September 22, 2024 Assessment & Plan (1) Dyspnea and respiratory abnormalities: Improving with treatment, patient feels he is back to baseline (2) Confusion: Improved from admission but remains mild and intermittent (3) Muscular deconditioning: (4) Self neglect: (5) Advanced care planning/counseling discussion: 30-minute [id number] advance care planning discussion was held at the bedside with patient and his son. We discussed the overall clinical progression of COPD and the increasing symptom burden he is experiencing. We also discussed options for moving forward including the distinction between palliative care and hospice, with patient specifically requesting to know the difference as he once believed hospice to be intertwined or the same as palliative care. We also discussed the options of hospice versus outpatient palliative medicine follow- up. He shares that it is very difficult for him to get out of the house especially with the oxygen that he needs to assure he is traveling with because he always worries about running out especially in the case of an emergency. It is difficult for him to navigate with multiple oxygen tanks, driving, his increasing anxiety and concerns for overall frailty. We discussed the option of enrolling in home hospice would enable him to have an [id number] on-call group who would help him in the situations of urgency, they would be able to bring the care to him at home, and the assistance of a home health aide and nursing can provide with terms of personal care support as well as medication management. His son was in agreement for hospice and felt that this would provide the patient with the most well-rounded approach to his care. Patient was also in agreement and stated that the [facility] staff have also began a Medicaid application so I suspect they are also anticipating a transition to skilled care in the future. If he is approved for Medicaid, then he will be able to continue receiving hospice in the senior living as the Medicare component of his coverage will pay for hospice and Medicaid could pay for the senior living bed and board. This was discussed in detail with patient and his son. We also discussed changes to anticipate his disease progression moves forward in the future and the approaches to symptom management that hospice would assist with. They were pleased with the outcome of the conversation and had no further questions, all questions were answered to their apparent satisfaction and both patient and his son verbalized understanding. (6) Palliative care by specialist: Introduced Palliative Medicine and explained our role in patient's care. Patient and/or family were receptive to palliative services for goals of care discussions. Reviewed we are different from hospice, a home health nurse visiting service. Plan as above Thank you for allowing us to participate in the ongoing care of this patient. Please page with any additional concerns. 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 Frequent reorientation, avoid sedating medications His son/Tony Wells, [phone], has been involved. He has done quite well with BiPAP therapy and his acidosis has improved. He is to continue BiPAP anytime he sleeps. He notes that he has a BiPAP at home, but has not been particularly compliant and is willing to comply better with BiPAP therapy at this time. Echo: grade 2 diastolic dysfunction and a normal LVEF. Right ventricular systolic pressures were estimated at 30 to 40 mmHg. Dyspnea likely combination of severe COPD and diastolic dysfunction. David is seen at bedside together with his son Tony. He is out of bed to chair, awake and alert and has some very occasional but mild confusion. He tells me his breathing is more comfortable and a little closer to baseline. Tony is a physical therapist and notes that patient's activity tolerance has been steadily declining for the past few years. Patient notes that he was first diagnosed with COPD about 4 years ago but had been having breathing problems for the years prior to that. He quit smoking about 7 years ago but prior to this was close to a [id number] smoker Allergies Allergy/AdvReac Type Severity Reaction Status Date / Time No Known Allergies Allergy Unverified 09/17/24 22:43 Patient History Social History Smoking Status: Former smoker Tobacco Type: Cigarettes Hx Alcohol Use: No Hx Substance Use: No Preferred Language: Portuguese Communication Ability: Effective Emergency Care Attendant Required: No Beliefs That Will Affect Care: None Current Living Situation: Personal Care Facility Feels Safe at Home: Yes Safety Concerns: Feels Safe At This Time Assistive Devices: Oxygen - Continuous and Scooter/Electric Scooter Review of Systems 2 Review of Systems: All systems reviewed & are unremarkable except as noted in Subjective (pt somewhat confused) Physical Exam 2 Constitutional: Thin, frail, cachectic Bitemporal wasting Thin, onion like skin Eyes: PERRL, conjunctivae normal, anicteric sclerae ENMT: Dentition poor Oral mucosa dry No obvious thrush Neck: trachea midline, no thyromegaly (No JVD) Respiratory: + Conversational dyspnea, + intermittent bronchitic cough, diminished breath sounds bilaterally, faint crackles left lower base and less so at the right lower base. No overt wheezing. Cardiovascular: S1-S2 Gastrointestinal (Abdomen): Scaphoid, bowel signs present throughout Musculoskeletal: Moving all extremities, + OA/age-related arthritic changes, mild generalized weakness, decreased hip extensor strength, + deconditioned Skin: [place]/scaly, ? lichenified skin BLE Plaque like skin formations upper extremities, neck, chest, forehead, quaker, lower extremities, back Neurologic: PERRL, EOMI, accommodation nl, no face palsy, no dysarthria Psychiatric: A+Ox3, euthymic affect Results & Data Vital Signs (Past 12 Hours) Vital Signs Temp Pulse Pulse Resp BP BP Pulse Ox 09/22/24 07:50 36 C L 92 H 18 101/62 97 09/22/24 07:24 73 18 98 09/22/24 03:36 37.0 C 76 20 124/63 97 09/22/24 02:47 90 21 97 09/22/24 00:18 36.6 C 82 20 142/73 H 95 09/21/24 22:50 75 09/21/24 21:55 09/21/24 21:45 89 19 96 09/21/24 21:25 36.7 C 82 18 134/70 92 O2 Del Method O2 Flow Rate FiO2 09/22/24 07:50 BiPAP 09/22/24 07:24 BiPAP 40 09/22/24 03:36 BiPAP 5 09/22/24 02:47 40 09/22/24 00:18 BiPAP 5 09/21/24 22:50 09/21/24 21:55 Nasal Cannula 5 09/21/24 21:45 40 09/21/24 21:25 Nasal Cannula 5 Laboratory Results 09/22/24 09/21/24 09/21/24 Range/Units 05:51 20:34 08:12 WBC 6.83 (4.8-10.8) K/ul RBC 4.29 L (4.70-6.10) M/uL Hgb 12.0 L (14.0-18.0) g/dl POC Hgb (14.0-18.0) g/dl Hct 39.8 L (42.0-52.0) % POC Hct (42-52) % MCV 92.8 (80.0-100.0) fL MCH 28.0 (25.0-34.0) pg MCHC 30.2 L (32.0-36.0) g/dL RDW Std Deviation 44.5 (36.4-46.3) fL RDW Coeff of Escobar 13.2 (11.5-14.5) % Plt Count 169 (130-400) K/uL MPV 10.5 (9.4-12.4) fL Immature Gran % (Auto) 0.3 % Neut % (Auto) 70.0 % Lymph % (Auto) 15.7 % Taney % (Auto) 13.6 % Eos % (Auto) 0.3 % Baso % (Auto) 0.1 % Reticulocyte % (Auto) (0.50-2.00) % Neut # (Auto) 4.78 (1.40-6.50) K/uL Lymph # (Auto) 1.07 L (1.20-3.40) K/uL Taney # (Auto) 0.93 H (0.11-0.59) K/uL Eos # (Auto) 0.02 (0.00-0.50) K/uL Baso # (Auto) 0.01 (0.00-0.20) K/uL Reticulocyte # (0.020-0.100) 10^6/uL Immature Gran # (Auto) 0.02 (0.01-0.20) K/uL PT (9.0-12.0) Seconds INR (0.9-1.1) Specimen Type POC pH (7.35-7.45) POC pCO2 (35-46) mmHg POC pO2 (80-95) mmHg POC HCO3 (19-24) reyes/L POC Total CO2 (24-31) mmol/L POC Base Excess (-9-1.8) reyes/L POC ABG O2 Sat (90-95) % VBG pH 7.35 L (7.36-7.41) VBG pCO2 84 H (38-50) mmHg VBG pO2 30 mmHg VBG HCO3 46 mmol/L VBG O2 Saturation < 60.0 % VBG Base Excess 16.4 mEq/L POC FiO2 % POC Sodium (135-144) mmol/L Sodium 138 (136-145) mmol/L POC Potassium (3.3-5.0) mmol/L Potassium 4.3 (3.5-5.1) mmol/L Chloride 95 L (98-107) mmol/L Carbon Dioxide 41 H* (21-32) mmol/L Anion Gap 2 L BUN 22 (6-23) mg/dl Creatinine 0.67 (0.6-1.4) mg/dl Est Cr Clr Drug Dosing 77.4 eGFR 93.22 BUN/Creatinine Ratio 32.8 H (10-20) Glucose 107 H (70-99(Fasting)) mg/dl POC Glucose 124 H (70-99) mg/dl Estimat Average Glucose mg/dl Hemoglobin A1c (4.5-5.6) % Calcium 8.9 (8.6-10.3) mg/dl Phosphorus 2.6 (2.5-4.9) mg/dl Magnesium 1.7 (1.7-2.4) mg/dl Iron (35-175) mcg/dl Transferrin (200-360) mg/dl Ferritin (8-388) ng/ml Total Bilirubin (0.2-1.0) mg/dl AST (13-39) U/L ALT (7-52) U/L Alkaline Phosphatase (34-104) U/L Ammonia (18-72) umol/L Troponin I High Sens (0-20) pg/ml B-Natriuretic Peptide (0-100) pg/ml Total Protein (6.0-8.3) gm/dl Albumin (3.4-5.0) gm/dl Globulin (2.5-4.0) gm/dl Albumin/Globulin Ratio (0.9-2) Vitamin B12 (180-914) pg/ml Folate (>5.38) ng/ml Procalcitonin (0-0.5) ng/ml TSH (0.300-4.500) uIu/ml Urine Color Urine Appearance (Clear) Urine pH (4.5-7.5) Ur Specific Colony (1.000-1.030) Urine Protein (Negative) Urine Glucose (UA) (Negative) Urine Ketones (Negative) Urine Blood (Negative) Urine Nitrite (Negative) Urine Bilirubin (Negative) Urine Urobilinogen (Negative) Ur Leukocyte Esterase (Negative) Urine WBC (Auto) (0-5) /hpf Urine RBC (Auto) (0-2) /hpf U Hyaline Cast (Auto) (0-2) /lpf U Epithel Cells (Auto) (0-2) /hpf Urine Bacteria (Auto) (None Seen) Nasal Screen MRSA (PCR) (Negative) Adenovirus (PCR) (NotDetected) B. pertussis DNA (PCR) (NotDetected) B.parapertussis DNA PCR (NotDetected) C. pneumoniae DNA (PCR) (NotDetected) Coronavirus OC43 (PCR) (NotDetected) Coronavirus HKU1 (PCR) (NotDetected) Coronavirus 229E (PCR) (NotDetected) SARS-CoV-2 (PCR) (NotDetected) Coronavirus NL63 (PCR) (NotDetected) Human Metapneumovir PCR (NotDetected) Influenza Type A (PCR) (NotDetected) Influenza Type B (PCR) (NotDetected) M. pneumoniae (PCR) (NotDetected) Parainfluenza 1 (PCR) (NotDetected) Parainfluenza 2 (PCR) (NotDetected) Parainfluenza 3 (PCR) (NotDetected) Parainfluenza 4 (PCR) (NotDetected) RSV (PCR) (NotDetected) Entero/Rhino (PCR) (NotDetected) 09/21/24 09/21/24 09/20/24 Range/Units 07:23 05:40 12:54 WBC 6.23 (4.8-10.8) K/ul RBC 3.78 L (4.70-6.10) M/uL Hgb 10.7 L (14.0-18.0) g/dl POC Hgb 12.2 L (14.0-18.0) g/dl Hct 35.5 L (42.0-52.0) % POC Hct 36 L (42-52) % MCV 93.9 (80.0-100.0) fL MCH 28.3 (25.0-34.0) pg MCHC 30.1 L (32.0-36.0) g/dL RDW Std Deviation 45.6 (36.4-46.3) fL RDW Coeff of Escobar 13.3 (11.5-14.5) % Plt Count 161 (130-400) K/uL MPV 10.9 (9.4-12.4) fL Immature Gran % (Auto) 0.2 % Neut % (Auto) 78.7 % Lymph % (Auto) 12.0 % Taney % (Auto) 8.7 % Eos % (Auto) 0.2 % Baso % (Auto) 0.2 % Reticulocyte % (Auto) (0.50-2.00) % Neut # (Auto) 4.91 (1.40-6.50) K/uL Lymph # (Auto) 0.75 L (1.20-3.40) K/uL [place] # (Auto) 0.54 (0.11-0.59) K/uL Eos # (Auto) 0.01 (0.00-0.50) K/uL Baso # (Auto) 0.01 (0.00-0.20) K/uL Reticulocyte # (0.020-0.100) 10^6/uL Immature Gran # (Auto) 0.01 (0.01-0.20) K/uL PT (9.0-12.0) Seconds INR (0.9-1.1) Specimen Type Arterial POC pH 7.41 (7.35-7.45) POC pCO2 70 H (35-46) mmHg POC pO2 85 (80-95) mmHg POC HCO3 44 H (19-24) reyes/L POC Total CO2 46 H* (24-31) mmol/L POC Base Excess 19.0 H (-9-1.8) reyes/L POC ABG O2 Sat 96.0 H (90-95) % VBG pH (7.36-7.41) VBG pCO2 (38-50) mmHg VBG pO2 mmHg VBG HCO3 mmol/L VBG O2 Saturation % VBG Base Excess mEq/L POC FiO2 % POC Sodium 137 (135-144) mmol/L Sodium 138 (136-145) mmol/L POC Potassium 4.2 (3.3-5.0) mmol/L Potassium 4.5 (3.5-5.1) mmol/L Chloride 94 L (98-107) mmol/L Carbon Dioxide 43 H* (21-32) mmol/L Anion Gap 1 L BUN 23 (6-23) mg/dl Creatinine 0.66 (0.6-1.4) mg/dl Est Cr Clr Drug Dosing 83.5 eGFR 93.65 BUN/Creatinine Ratio 34.8 H (10-20) Glucose 117 H (70-99(Fasting)) mg/dl POC Glucose (70-99) mg/dl Estimat Average Glucose mg/dl Hemoglobin A1c (4.5-5.6) % Calcium 8.6 (8.6-10.3) mg/dl Phosphorus 2.8 (2.5-4.9) mg/dl Magnesium 2.0 (1.7-2.4) mg/dl Iron (35-175) mcg/dl Transferrin (200-360) mg/dl Ferritin (8-388) ng/ml Total Bilirubin (0.2-1.0) mg/dl AST (13-39) U/L ALT (7-52) U/L Alkaline Phosphatase (34-104) U/L Ammonia (18-72) umol/L Troponin I High Sens (0-20) pg/ml B-Natriuretic Peptide (0-100) pg/ml Total Protein (6.0-8.3) gm/dl Albumin (3.4-5.0) gm/dl Globulin (2.5-4.0) gm/dl Albumin/Globulin Ratio (0.9-2) Vitamin B12 (180-914) pg/ml Folate (>5.38) ng/ml Procalcitonin 0.04 (0-0.5) ng/ml TSH (0.300-4.500) uIu/ml Urine Color Urine Appearance (Clear) Urine pH (4.5-7.5) Ur Specific Colony (1.000-1.030) Urine Protein (Negative) Urine Glucose (UA) (Negative) Urine Ketones (Negative) Urine Blood (Negative) Urine Nitrite (Negative) Urine Bilirubin (Negative) Urine Urobilinogen (Negative) Ur Leukocyte Esterase (Negative) Urine WBC (Auto) (0-5) /hpf Urine RBC (Auto) (0-2) /hpf U Hyaline Cast (Auto) (0-2) /lpf U Epithel Cells (Auto) (0-2) /hpf Urine Bacteria (Auto) (None Seen) Nasal Screen MRSA (PCR) (Negative) Adenovirus (PCR) (NotDetected) B. pertussis DNA (PCR) (NotDetected) B.parapertussis DNA PCR (NotDetected) C. pneumoniae DNA (PCR) (NotDetected) Coronavirus OC43 (PCR) (NotDetected) Coronavirus HKU1 (PCR) (NotDetected) Coronavirus 229E (PCR) (NotDetected) SARS-CoV-2 (PCR) (NotDetected) Coronavirus NL63 (PCR) (NotDetected) Human Metapneumovir PCR (NotDetected) Influenza Type A (PCR) (NotDetected) Influenza Type B (PCR) (NotDetected) M. pneumoniae (PCR) (NotDetected) Parainfluenza 1 (PCR) (NotDetected) Parainfluenza 2 (PCR) (NotDetected) Parainfluenza 3 (PCR) (NotDetected) Parainfluenza 4 (PCR) (NotDetected) RSV (PCR) (NotDetected) Entero/Rhino (PCR) (NotDetected) 09/20/24 09/20/24 09/19/24 Range/Units 12:38 05:49 19:43 WBC 5.69 (4.8-10.8) K/ul RBC 3.99 L (4.70-6.10) M/uL Hgb 11.2 L (14.0-18.0) g/dl POC Hgb 11.9 L (14.0-18.0) g/dl Hct 37.7 L (42.0-52.0) % POC Hct 35 L (42-52) % MCV 94.5 (80.0-100.0) fL MCH 28.1 (25.0-34.0) pg MCHC 29.7 L (32.0-36.0) g/dL RDW Std Deviation 46.7 H (36.4-46.3) fL RDW Coeff of Escobar 13.4 (11.5-14.5) % Plt Count 176 (130-400) K/uL MPV 10.8 (9.4-12.4) fL Immature Gran % (Auto) 0.2 % Neut % (Auto) 75.9 % Lymph % (Auto) 15.3 % [place] % (Auto) 8.4 % Eos % (Auto) 0.0 % Baso % (Auto) 0.2 % Reticulocyte % (Auto) (0.50-2.00) % Neut # (Auto) 4.32 (1.40-6.50) K/uL Lymph # (Auto) 0.87 L (1.20-3.40) K/uL [place] # (Auto) 0.48 (0.11-0.59) K/uL Eos # (Auto) 0.00 (0.00-0.50) K/uL Baso # (Auto) 0.01 (0.00-0.20) K/uL Reticulocyte # (0.020-0.100) 10^6/uL Immature Gran # (Auto) 0.01 (0.01-0.20) K/uL PT (9.0-12.0) Seconds INR (0.9-1.1) Specimen Type Arterial POC pH 7.36 (7.35-7.45) POC pCO2 78 H (35-46) mmHg POC pO2 60 L (80-95) mmHg POC HCO3 44 H (19-24) reyes/L POC Total CO2 46 H* (24-31) mmol/L POC Base Excess 19.0 H (-9-1.8) reyes/L POC ABG O2 Sat 88.0 L (90-95) % VBG pH 7.36 (7.36-7.41) VBG pCO2 80 H (38-50) mmHg VBG pO2 66 mmHg VBG HCO3 45 mmol/L VBG O2 Saturation 94.4 % VBG Base Excess 16.4 mEq/L POC FiO2 30 % POC Sodium 138 (135-144) mmol/L Sodium 137 (136-145) mmol/L POC Potassium 4.1 (3.3-5.0) mmol/L Potassium 4.6 (3.5-5.1) mmol/L Chloride 91 L (98-107) mmol/L Carbon Dioxide 43 H* (21-32) mmol/L Anion Gap 3 BUN 20 (6-23) mg/dl Creatinine 0.67 (0.6-1.4) mg/dl Est Cr Clr Drug Dosing 82.2 eGFR 93.22 BUN/Creatinine Ratio 29.9 H (10-20) Glucose 112 H (70-99(Fasting)) mg/dl POC Glucose (70-99) mg/dl Estimat Average Glucose mg/dl Hemoglobin A1c (4.5-5.6) % Calcium 8.8 (8.6-10.3) mg/dl Phosphorus 3.3 (2.5-4.9) mg/dl Magnesium 2.1 (1.7-2.4) mg/dl Iron (35-175) mcg/dl Transferrin (200-360) mg/dl Ferritin (8-388) ng/ml Total Bilirubin (0.2-1.0) mg/dl AST (13-39) U/L ALT (7-52) U/L Alkaline Phosphatase (34-104) U/L Ammonia (18-72) umol/L Troponin I High Sens (0-20) pg/ml B-Natriuretic Peptide (0-100) pg/ml Total Protein (6.0-8.3) gm/dl Albumin (3.4-5.0) gm/dl Globulin (2.5-4.0) gm/dl Albumin/Globulin Ratio (0.9-2) Vitamin B12 (180-914) pg/ml Folate (>5.38) ng/ml Procalcitonin (0-0.5) ng/ml TSH (0.300-4.500) uIu/ml Urine Color Urine Appearance (Clear) Urine pH (4.5-7.5) Ur Specific Colony (1.000-1.030) Urine Protein (Negative) Urine Glucose (UA) (Negative) Urine Ketones (Negative) Urine Blood (Negative) Urine Nitrite (Negative) Urine Bilirubin (Negative) Urine Urobilinogen (Negative) Ur Leukocyte Esterase (Negative) Urine WBC (Auto) (0-5) /hpf Urine RBC (Auto) (0-2) /hpf U Hyaline Cast (Auto) (0-2) /lpf U Epithel Cells (Auto) (0-2) /hpf Urine Bacteria (Auto) (None Seen) Nasal Screen MRSA (PCR) (Negative) Adenovirus (PCR) (NotDetected) B. pertussis DNA (PCR) (NotDetected) B.parapertussis DNA PCR (NotDetected) C. pneumoniae DNA (PCR) (NotDetected) Coronavirus OC43 (PCR) (NotDetected) Coronavirus HKU1 (PCR) (NotDetected) Coronavirus 229E (PCR) (NotDetected) SARS-CoV-2 (PCR) (NotDetected) Coronavirus NL63 (PCR) (NotDetected) Human Metapneumovir PCR (NotDetected) Influenza Type A (PCR) (NotDetected) Influenza Type B (PCR) (NotDetected) M. pneumoniae (PCR) (NotDetected) Parainfluenza 1 (PCR) (NotDetected) Parainfluenza 2 (PCR) (NotDetected) Parainfluenza 3 (PCR) (NotDetected) Parainfluenza 4 (PCR) (NotDetected) RSV (PCR) (NotDetected) Entero/Rhino (PCR) (NotDetected) 09/19/24 09/19/24 09/18/24 Range/Units 13:19 05:42 05:08 WBC 6.52 (4.8-10.8) K/ul RBC 3.82 L (4.70-6.10) M/uL Hgb 10.9 L (14.0-18.0) g/dl POC Hgb (14.0-18.0) g/dl Hct 36.1 L (42.0-52.0) % POC Hct (42-52) % MCV 94.5 (80.0-100.0) fL MCH 28.5 (25.0-34.0) pg MCHC 30.2 L (32.0-36.0) g/dL RDW Std Deviation 46.6 H (36.4-46.3) fL RDW Coeff of Escobar 13.4 (11.5-14.5) % Plt Count 160 (130-400) K/uL MPV 10.8 (9.4-12.4) fL Immature Gran % (Auto) 0.3 % Neut % (Auto) 72.0 % Lymph % (Auto) 12.6 % [place] % (Auto) 14.6 % Eos % (Auto) 0.2 % Baso % (Auto) 0.3 % Reticulocyte % (Auto) (0.50-2.00) % Neut # (Auto) 4.70 (1.40-6.50) K/uL Lymph # (Auto) 0.82 L (1.20-3.40) K/uL [place] # (Auto) 0.95 H (0.11-0.59) K/uL Eos # (Auto) 0.01 (0.00-0.50) K/uL Baso # (Auto) 0.02 (0.00-0.20) K/uL Reticulocyte # (0.020-0.100) 10^6/uL Immature Gran # (Auto) 0.02 (0.01-0.20) K/uL PT (9.0-12.0) Seconds INR (0.9-1.1) Specimen Type POC pH (7.35-7.45) POC pCO2 (35-46) mmHg POC pO2 (80-95) mmHg POC HCO3 (19-24) reyes/L POC Total CO2 (24-31) mmol/L POC Base Excess (-9-1.8) reyes/L POC ABG O2 Sat (90-95) % VBG pH 7.38 (7.36-7.41) VBG pCO2 (38-50) mmHg VBG pO2 mmHg VBG HCO3 mmol/L VBG O2 Saturation % VBG Base Excess mEq/L POC FiO2 % POC Sodium (135-144) mmol/L Sodium 138 (136-145) mmol/L POC Potassium (3.3-5.0) mmol/L Potassium 4.0 (3.5-5.1) mmol/L Chloride 93 L (98-107) mmol/L Carbon Dioxide 40 H (21-32) mmol/L Anion Gap 5 BUN 22 (6-23) mg/dl Creatinine 0.68 (0.6-1.4) mg/dl Est Cr Clr Drug Dosing 81.0 eGFR 92.81 BUN/Creatinine Ratio 32.4 H (10-20) Glucose 104 H (70-99(Fasting)) mg/dl POC Glucose 179 H (70-99) mg/dl Estimat Average Glucose mg/dl Hemoglobin A1c (4.5-5.6) % Calcium 8.9 (8.6-10.3) mg/dl Phosphorus (2.5-4.9) mg/dl Magnesium (1.7-2.4) mg/dl Iron (35-175) mcg/dl Transferrin (200-360) mg/dl Ferritin (8-388) ng/ml Total Bilirubin (0.2-1.0) mg/dl AST (13-39) U/L ALT (7-52) U/L Alkaline Phosphatase (34-104) U/L Ammonia (18-72) umol/L Troponin I High Sens (0-20) pg/ml B-Natriuretic Peptide (0-100) pg/ml Total Protein (6.0-8.3) gm/dl Albumin (3.4-5.0) gm/dl Globulin (2.5-4.0) gm/dl Albumin/Globulin Ratio (0.9-2) Vitamin B12 (180-914) pg/ml Folate (>5.38) ng/ml Procalcitonin (0-0.5) ng/ml TSH (0.300-4.500) uIu/ml Urine Color Urine Appearance (Clear) Urine pH (4.5-7.5) Ur Specific Colony (1.000-1.030) Urine Protein (Negative) Urine Glucose (UA) (Negative) Urine Ketones (Negative) Urine Blood (Negative) Urine Nitrite (Negative) Urine Bilirubin (Negative) Urine Urobilinogen (Negative) Ur Leukocyte Esterase (Negative) Urine WBC (Auto) (0-5) /hpf Urine RBC (Auto) (0-2) /hpf U Hyaline Cast (Auto) (0-2) /lpf U Epithel Cells (Auto) (0-2) /hpf Urine Bacteria (Auto) (None Seen) Nasal Screen MRSA (PCR) (Negative) Adenovirus (PCR) (NotDetected) B. pertussis DNA (PCR) (NotDetected) B.parapertussis DNA PCR (NotDetected) C. pneumoniae DNA (PCR) (NotDetected) Coronavirus OC43 (PCR) (NotDetected) Coronavirus HKU1 (PCR) (NotDetected) Coronavirus 229E (PCR) (NotDetected) SARS-CoV-2 (PCR) (NotDetected) Coronavirus NL63 (PCR) (NotDetected) Human Metapneumovir PCR (NotDetected) Influenza Type A (PCR) (NotDetected) Influenza Type B (PCR) (NotDetected) M. pneumoniae (PCR) (NotDetected) Parainfluenza 1 (PCR) (NotDetected) Parainfluenza 2 (PCR) (NotDetected) Parainfluenza 3 (PCR) (NotDetected) Parainfluenza 4 (PCR) (NotDetected) RSV (PCR) (NotDetected) Entero/Rhino (PCR) (NotDetected) 09/18/24 09/17/24 09/17/24 Range/Units 04:51 23:58 21:50 WBC 2.44 L (4.8-10.8) K/ul RBC 3.71 L (4.70-6.10) M/uL Hgb 10.9 L (14.0-18.0) g/dl POC Hgb (14.0-18.0) g/dl Hct 35.8 L (42.0-52.0) % POC Hct (42-52) % MCV 96.5 (80.0-100.0) fL MCH 29.4 (25.0-34.0) pg MCHC 30.4 L (32.0-36.0) g/dL RDW Std Deviation 47.1 H (36.4-46.3) fL RDW Coeff of Escobar 13.3 (11.5-14.5) % Plt Count 150 (130-400) K/uL MPV 10.9 (9.4-12.4) fL Immature Gran % (Auto) 0.4 % Neut % (Auto) 89.0 % Lymph % (Auto) 9.0 % Taney % (Auto) 1.2 % Eos % (Auto) 0.0 % Baso % (Auto) 0.4 % Reticulocyte % (Auto) 0.96 (0.50-2.00) % Neut # (Auto) 2.17 (1.40-6.50) K/uL Lymph # (Auto) 0.22 L (1.20-3.40) K/uL Taney # (Auto) 0.03 L (0.11-0.59) K/uL Eos # (Auto) 0.00 (0.00-0.50) K/uL Baso # (Auto) 0.01 (0.00-0.20) K/uL Reticulocyte # 0.040 (0.020-0.100) 10^6/uL Immature Gran # (Auto) 0.01 (0.01-0.20) K/uL PT (9.0-12.0) Seconds INR (0.9-1.1) Specimen Type POC pH (7.35-7.45) POC pCO2 (35-46) mmHg POC pO2 (80-95) mmHg POC HCO3 (19-24) reyes/L POC Total CO2 (24-31) mmol/L POC Base Excess (-9-1.8) reyes/L POC ABG O2 Sat (90-95) % VBG pH 7.32 L (7.36-7.41) VBG pCO2 86 H (38-50) mmHg VBG pO2 27 mmHg VBG HCO3 44 mmol/L VBG O2 Saturation < 60.0 % VBG Base Excess 14.0 mEq/L POC FiO2 % POC Sodium (135-144) mmol/L Sodium 140 (136-145) mmol/L POC Potassium (3.3-5.0) mmol/L Potassium 4.3 (3.5-5.1) mmol/L Chloride 94 L (98-107) mmol/L Carbon Dioxide 40 H (21-32) mmol/L Anion Gap 6 BUN 14 (6-23) mg/dl Creatinine 0.62 (0.6-1.4) mg/dl Est Cr Clr Drug Dosing 82.8 eGFR 95.43 BUN/Creatinine Ratio 22.6 H (10-20) Glucose 181 H (70-99(Fasting)) mg/dl POC Glucose (70-99) mg/dl Estimat Average Glucose mg/dl Hemoglobin A1c (4.5-5.6) % Calcium 9.1 (8.6-10.3) mg/dl Phosphorus (2.5-4.9) mg/dl Magnesium (1.7-2.4) mg/dl Iron 20 L (35-175) mcg/dl Transferrin 195 L (200-360) mg/dl Ferritin 103.9 (8-388) ng/ml Total Bilirubin (0.2-1.0) mg/dl AST (13-39) U/L ALT (7-52) U/L Alkaline Phosphatase (34-104) U/L Ammonia 18.0 (18-72) umol/L Troponin I High Sens (0-20) pg/ml B-Natriuretic Peptide (0-100) pg/ml Total Protein (6.0-8.3) gm/dl Albumin (3.4-5.0) gm/dl Globulin (2.5-4.0) gm/dl Albumin/Globulin Ratio (0.9-2) Vitamin B12 321 (180-914) pg/ml Folate 9.92 (>5.38) ng/ml Procalcitonin (0-0.5) ng/ml TSH (0.300-4.500) uIu/ml Urine Color Yellow Urine Appearance Clear (Clear) Urine pH 7.0 (4.5-7.5) Ur Specific Colony > 1.045 H (1.000-1.030) Urine Protein 1+ H (Negative) Urine Glucose (UA) Negative (Negative) Urine Ketones Trace H (Negative) Urine Blood Negative (Negative) Urine Nitrite Negative (Negative) Urine Bilirubin Negative (Negative) Urine Urobilinogen Negative (Negative) Ur Leukocyte Esterase Negative (Negative) Urine WBC (Auto) 0-5 (0-5) /hpf Urine RBC (Auto) 0-2 (0-2) /hpf U Hyaline Cast (Auto) 0-2 (0-2) /lpf U Epithel Cells (Auto) 0-2 (0-2) /hpf Urine Bacteria (Auto) None Seen (None Seen) Nasal Screen MRSA (PCR) Negative (Negative) Adenovirus (PCR) (NotDetected) B. pertussis DNA (PCR) (NotDetected) B.parapertussis DNA PCR (NotDetected) C. pneumoniae DNA (PCR) (NotDetected) Coronavirus OC43 (PCR) (NotDetected) Coronavirus HKU1 (PCR) (NotDetected) Coronavirus 229E (PCR) (NotDetected) SARS-CoV-2 (PCR) (NotDetected) Coronavirus NL63 (PCR) (NotDetected) Human Metapneumovir PCR (NotDetected) Influenza Type A (PCR) (NotDetected) Influenza Type B (PCR) (NotDetected) M. pneumoniae (PCR) (NotDetected) Parainfluenza 1 (PCR) (NotDetected) Parainfluenza 2 (PCR) (NotDetected) Parainfluenza 3 (PCR) (NotDetected) Parainfluenza 4 (PCR) (NotDetected) RSV (PCR) (NotDetected) Entero/Rhino (PCR) (NotDetected) 09/17/24 09/17/24 09/17/24 Range/Units 18:14 15:55 15:45 WBC (4.8-10.8) K/ul RBC (4.70-6.10) M/uL Hgb (14.0-18.0) g/dl POC Hgb (14.0-18.0) g/dl Hct (42.0-52.0) % POC Hct (42-52) % MCV (80.0-100.0) fL MCH (25.0-34.0) pg MCHC (32.0-36.0) g/dL RDW Std Deviation (36.4-46.3) fL RDW Coeff of Escobar (11.5-14.5) % Plt Count (130-400) K/uL MPV (9.4-12.4) fL Immature Gran % (Auto) % Neut % (Auto) % Lymph % (Auto) % [place] % (Auto) % Eos % (Auto) % Baso % (Auto) % Reticulocyte % (Auto) (0.50-2.00) % Neut # (Auto) (1.40-6.50) K/uL Lymph # (Auto) (1.20-3.40) K/uL [place] # (Auto) (0.11-0.59) K/uL Eos # (Auto) (0.00-0.50) K/uL Baso # (Auto) (0.00-0.20) K/uL Reticulocyte # (0.020-0.100) 10^6/uL Immature Gran # (Auto) (0.01-0.20) K/uL PT (9.0-12.0) Seconds INR (0.9-1.1) Specimen Type POC pH (7.35-7.45) POC pCO2 (35-46) mmHg POC pO2 (80-95) mmHg POC HCO3 (19-24) reyes/L POC Total CO2 (24-31) mmol/L POC Base Excess (-9-1.8) reyes/L POC ABG O2 Sat (90-95) % VBG pH 7.31 L 7.28 L (7.36-7.41) VBG pCO2 92 H 102 H (38-50) mmHg VBG pO2 25 28 mmHg VBG HCO3 46 48 mmol/L VBG O2 Saturation < 60.0 < 60.0 % VBG Base Excess 15.4 16.1 mEq/L POC FiO2 % POC Sodium (135-144) mmol/L Sodium (136-145) mmol/L POC Potassium (3.3-5.0) mmol/L Potassium (3.5-5.1) mmol/L Chloride (98-107) mmol/L Carbon Dioxide (21-32) mmol/L Anion Gap BUN (6-23) mg/dl Creatinine (0.6-1.4) mg/dl Est Cr Clr Drug Dosing eGFR BUN/Creatinine Ratio (10-20) Glucose (70-99(Fasting)) mg/dl POC Glucose (70-99) mg/dl Estimat Average Glucose mg/dl Hemoglobin A1c (4.5-5.6) % Calcium (8.6-10.3) mg/dl Phosphorus (2.5-4.9) mg/dl Magnesium (1.7-2.4) mg/dl Iron (35-175) mcg/dl Transferrin (200-360) mg/dl Ferritin (8-388) ng/ml Total Bilirubin (0.2-1.0) mg/dl AST (13-39) U/L ALT (7-52) U/L Alkaline Phosphatase (34-104) U/L Ammonia (18-72) umol/L Troponin I High Sens (0-20) pg/ml B-Natriuretic Peptide (0-100) pg/ml Total Protein (6.0-8.3) gm/dl Albumin (3.4-5.0) gm/dl Globulin (2.5-4.0) gm/dl Albumin/Globulin Ratio (0.9-2) Vitamin B12 (180-914) pg/ml Folate (>5.38) ng/ml Procalcitonin (0-0.5) ng/ml TSH (0.300-4.500) uIu/ml Urine Color Urine Appearance (Clear) Urine pH (4.5-7.5) Ur Specific [place] (1.000-1.030) Urine Protein (Negative) Urine Glucose (UA) (Negative) Urine Ketones (Negative) Urine Blood (Negative) Urine Nitrite (Negative) Urine Bilirubin (Negative) Urine Urobilinogen (Negative) Ur Leukocyte Esterase (Negative) Urine WBC (Auto) (0-5) /hpf Urine RBC (Auto) (0-2) /hpf U Hyaline Cast (Auto) (0-2) /lpf U Epithel Cells (Auto) (0-2) /hpf Urine Bacteria (Auto) (None Seen) Nasal Screen MRSA (PCR) (Negative) Adenovirus (PCR) Not Detected (NotDetected) B. pertussis DNA (PCR) Not Detected (NotDetected) B.parapertussis DNA PCR Not Detected (NotDetected) C. pneumoniae DNA (PCR) Not Detected (NotDetected) Coronavirus OC43 (PCR) Not Detected (NotDetected) Coronavirus HKU1 (PCR) Not Detected (NotDetected) Coronavirus 229E (PCR) Not Detected (NotDetected) SARS-CoV-2 (PCR) Not Detected (NotDetected) Coronavirus NL63 (PCR) Not Detected (NotDetected) Human Metapneumovir PCR Not Detected (NotDetected) Influenza Type A (PCR) Not Detected (NotDetected) Influenza Type B (PCR) Not Detected (NotDetected) M. pneumoniae (PCR) Not Detected (NotDetected) Parainfluenza 1 (PCR) Not Detected (NotDetected) Parainfluenza 2 (PCR) Not Detected (NotDetected) Parainfluenza 3 (PCR) Not Detected (NotDetected) Parainfluenza 4 (PCR) Not Detected (NotDetected) RSV (PCR) Not Detected (NotDetected) Entero/Rhino (PCR) Not Detected (NotDetected) 09/17/24 Range/Units 15:30 WBC 5.24 (4.8-10.8) K/ul RBC 3.63 L (4.70-6.10) M/uL Hgb 10.6 L (14.0-18.0) g/dl POC Hgb (14.0-18.0) g/dl Hct 35.2 L (42.0-52.0) % POC Hct (42-52) % MCV 97.0 (80.0-100.0) fL MCH 29.2 (25.0-34.0) pg MCHC 30.1 L (32.0-36.0) g/dL RDW Std Deviation 46.4 H (36.4-46.3) fL RDW Coeff of Escobar 13.1 (11.5-14.5) % Plt Count 159 (130-400) K/uL MPV 10.6 (9.4-12.4) fL Immature Gran % (Auto) 0.2 % Neut % (Auto) 77.3 % Lymph % (Auto) 5.5 % [place] % (Auto) 13.4 % Eos % (Auto) 3.2 % Baso % (Auto) 0.4 % Reticulocyte % (Auto) (0.50-2.00) % Neut # (Auto) 4.05 (1.40-6.50) K/uL Lymph # (Auto) 0.29 L (1.20-3.40) K/uL [place] # (Auto) 0.70 H (0.11-0.59) K/uL Eos # (Auto) 0.17 (0.00-0.50) K/uL Baso # (Auto) 0.02 (0.00-0.20) K/uL Reticulocyte # (0.020-0.100) 10^6/uL Immature Gran # (Auto) 0.01 (0.01-0.20) K/uL PT 10.5 (9.0-12.0) Seconds INR 1.0 (0.9-1.1) Specimen Type POC pH (7.35-7.45) POC pCO2 (35-46) mmHg POC pO2 (80-95) mmHg POC HCO3 (19-24) reyes/L POC Total CO2 (24-31) mmol/L POC Base Excess (-9-1.8) reyes/L POC ABG O2 Sat (90-95) % VBG pH (7.36-7.41) VBG pCO2 (38-50) mmHg VBG pO2 mmHg VBG HCO3 mmol/L VBG O2 Saturation % VBG Base Excess mEq/L POC FiO2 % POC Sodium (135-144) mmol/L Sodium 140 (136-145) mmol/L POC Potassium (3.3-5.0) mmol/L Potassium 4.1 (3.5-5.1) mmol/L Chloride 94 L (98-107) mmol/L Carbon Dioxide > 45 H* (21-32) mmol/L Anion Gap TNP BUN 18 (6-23) mg/dl Creatinine 0.64 (0.6-1.4) mg/dl Est Cr Clr Drug Dosing Not Reportable eGFR 94.52 BUN/Creatinine Ratio 28.1 H (10-20) Glucose 113 H (70-99(Fasting)) mg/dl POC Glucose (70-99) mg/dl Estimat Average Glucose 123 mg/dl Hemoglobin A1c 5.9 H (4.5-5.6) % Calcium 8.9 (8.6-10.3) mg/dl Phosphorus (2.5-4.9) mg/dl Magnesium 1.9 (1.7-2.4) mg/dl Iron (35-175) mcg/dl Transferrin (200-360) mg/dl Ferritin (8-388) ng/ml Total Bilirubin 0.3 (0.2-1.0) mg/dl AST 13 (13-39) U/L ALT 8 (7-52) U/L Alkaline Phosphatase 77 (34-104) U/L Ammonia (18-72) umol/L Troponin I High Sens 6.5 (0-20) pg/ml B-Natriuretic Peptide 73 (0-100) pg/ml Total Protein 7.2 (6.0-8.3) gm/dl Albumin 3.5 (3.4-5.0) gm/dl Globulin 3.7 (2.5-4.0) gm/dl Albumin/Globulin Ratio 0.9 (0.9-2) Vitamin B12 (180-914) pg/ml Folate (>5.38) ng/ml Procalcitonin < 0.02 (0-0.5) ng/ml TSH 4.123 (0.300-4.500) uIu/ml Urine Color Urine Appearance (Clear) Urine pH (4.5-7.5) Ur Specific [place]ony (1.000-1.030) Urine Protein (Negative) Urine Glucose (UA) (Negative) Urine Ketones (Negative) Urine Blood (Negative) Urine Nitrite (Negative) Urine Bilirubin (Negative) Urine Urobilinogen (Negative) Ur Leukocyte Esterase (Negative) Urine WBC (Auto) (0-5) /hpf Urine RBC (Auto) (0-2) /hpf U Hyaline Cast (Auto) (0-2) /lpf U Epithel Cells (Auto) (0-2) /hpf Urine Bacteria (Auto) (None Seen) Nasal Screen MRSA (PCR) (Negative) Adenovirus (PCR) (NotDetected) B. pertussis DNA (PCR) (NotDetected) B.parapertussis DNA PCR (NotDetected) C. pneumoniae DNA (PCR) (NotDetected) Coronavirus OC43 (PCR) (NotDetected) Coronavirus HKU1 (PCR) (NotDetected) Coronavirus 229E (PCR) (NotDetected) SARS-CoV-2 (PCR) (NotDetected) Coronavirus NL63 (PCR) (NotDetected) Human Metapneumovir PCR (NotDetected) Influenza Type A (PCR) (NotDetected) Influenza Type B (PCR) (NotDetected) M. pneumoniae (PCR) (NotDetected) Parainfluenza 1 (PCR) (NotDetected) Parainfluenza 2 (PCR) (NotDetected) Parainfluenza 3 (PCR) (NotDetected) Parainfluenza 4 (PCR) (NotDetected) RSV (PCR) (NotDetected) Entero/Rhino (PCR) (NotDetected) Diagnostic Findings PFT OSH 2020: Chest X-Ray 09/17/24 15:30 XR chest 1V portable CLINICAL HISTORY: weakness, falls, sob COMPARISON STUDY: No previous studies for comparison. FINDINGS: Lung volumes are normal. There is no pneumothorax or pleural effusion. There may be underlying emphysema. No consolidation is present. Pulmonary vascularity is normal. Cardiomediastinal silhouette is unremarkable. IMPRESSION: No acute cardiopulmonary findings. ACT 112: Negative or not required by law. Electronically signed by: Jaden Thorne M.D. 09/17/2024 4:15 PM Elbow X-Ray 09/17/24 15:30 XR elbow LT min 3V routine CLINICAL HISTORY: wound, hit door TECHNIQUE: 3 views of the left elbow were obtained. Comparison: None available at the time of this dictation. FINDINGS: There is no evidence of an acute fracture. Joint spaces are well-preserved. There is no prominence of the anterior or posterior fat pads to suggest an effusion. No soft tissue abnormality is seen. IMPRESSION: No evidence of acute osseous injury. ACT 112: Negative or not required by law. Electronically signed by: Ja Oneil M.D. 09/17/2024 4:[address] 09/17/24 15:31 CT OF THE HEAD WITHOUT CONTRAST CLINICAL HISTORY: Vision changes. COMPARISON STUDY: No previous studies for comparison. TECHNIQUE: Helical axial images of the head were obtained without IV contrast. Automated exposure control was utilized for the study. A dose lowering technique was utilized adhering to the principles of ALARA. FINDINGS: No acute intracranial hemorrhage, midline shift or mass effect is present. The ventricular system is unremarkable. The basal cisterns are patent. No extra-axial collections are present. There are no findings to suggest acute dural sinus thrombosis or acute territorial infarct. No significant calvarial abnormalities are present. Visualized portions of the sinuses and mastoid air cells are clear. IMPRESSION: No acute intracranial findings. ACT 112: Negative or not required by law. Electronically signed by: Jaden Thorne M.D. 09/17/2024 6:52 PM Head CTA 09/17/24 15:31 CTA ANGIOGRAPHY OF THE HEAD CLINICAL HISTORY: Vision changes. COMPARISON STUDY: No previous studies for comparison. TECHNIQUE: Helical axial images of the head were obtained following uneventful intravenous administration of 119 cc of Optiray. Sagittal and coronal reconstructions were viewed as well as maximal intensity projections on an independent 3-D workstation. Automated exposure control was utilized for the study. A dose lowering technique was utilized adhering to the principles of ALARA. CT DOSE: 1076.37 mGy.cm FINDINGS: This exam is mildly compromised by motion artifact. No acute intracranial hemorrhage, midline shift or mass effect is present. The ventricular system is normal. The basal cisterns are patent. There are no extra- axial collections. The bilateral M1, M2, A1 and A2 segments are patent. There is no intracranial aneurysm. The intracranial portions of the vertebral arteries are patent. The bilateral posterior inferior cerebellar arteries are patent. The basilar artery and bilateral posterior cerebral arteries are patent. No vessel occlusion within the posterior circulation is identified. Major dural sinuses are patent. IMPRESSION: No large vessel occlusion. No intracranial aneurysm. Exam mildly compromised by motion artifact. ACT 112: Negative or not required by law. Electronically signed by: Jaden Thorne M.D. 09/17/2024 6:59 PM Neck CTA 09/17/24 15:31 CT ANGIOGRAPHY OF THE NECK WITH CONTRAST CLINICAL HISTORY: Vision changes. COMPARISON STUDY: No previous studies for comparison. Technique: CT angiography of the carotid and vertebral arteries was obtained using Optiray and 3D reconstruction on an independent workstation. NASCET criteria was utilized. Automated exposure control was utilized for the study. A dose lowering technique was utilized adhering to the principles of ALARA. Findings: Severe emphysema within the visualized lung apices is noted. There is no cervical spine fracture. No cervical lymphadenopathy is present. This exam is mildly compromised by motion artifact. The bilateral common carotid, cervical internal carotid and vertebral arteries are patent. There is moderate atherosclerotic plaque within the proximal bilateral internal carotid arteries without resultant stenosis. There is no aneurysm or dissection within the neck. The CTA of the head will be reported separately. IMPRESSION: 1. Moderate atherosclerotic plaque within the carotid bifurcations without stenosis. No stenosis or dissection within the bilateral common carotid, cervical internal carotid or vertebral arteries. 2. Emphysema. ACT 112: Negative or not required by law. Electronically signed by: Jaden Thorne M.D. 09/17/2024 6:56 PM Chest CTA 09/17/24 20:54 Exam(s): CTA CHEST IV Amt: 119 ml EXAM: CT Angiography Chest With Intravenous Contrast CLINICAL HISTORY: Reason for exam: sob. TECHNIQUE: Axial computed tomographic angiography images of the chest with intravenous contrast. CTDI is 35 mGy and DLP is 774.68 mGy-cm. Automated exposure control was utilized for the study. A dose lowering technique was utilized adhering to the principles of ALARA. MIP reconstructed images were created and reviewed. 119 ML IV contrast is given. Excellent aortic and pulmonary arterial enhancement. Mild to moderate breathing/motion artifact. COMPARISON: Chest x-ray done earlier the same day. FINDINGS: Pulmonary arteries: No pulmonary embolism. Mild vascular prominence, nonspecific, may be chronic, cannot rule out mild CHF. Aorta: No dissection or aneurysm. Lungs: Severe emphysema. Pleural-parenchymal thickening posterior bilateral lower lobe lung, greater on the left, nonspecific, probably chronic. No consolidation. Pleural space: No pleural effusion. No pneumothorax. Heart: No cardiomegaly. No significant pericardial effusion. No evidence of elevated right heart pressures. Bones/joints: No acute fracture. Soft tissues: Unremarkable. Lymph nodes: No enlarged lymph nodes. IMPRESSION: 1. No pulmonary embolism. 2. Severe emphysema. 3. Probable scarring posterior costophrenic angles bilaterally. No consolidation or pleural effusion. Electronically signed by: Bri Haynes M.D. 09/17/24 23:54 PM Chest X-Ray 09/19/24 19:02 XR chest 1V portable CLINICAL HISTORY: Hypoxia TECHNIQUE: Single frontal radiograph of the chest was obtained. Comparison: Comparison is made to chest radiograph 09/17/2024 FINDINGS: No lines and tubes are seen. Calcified aortic knob is seen. Reticular interstitial opacities and emphysema are seen. No evidence of pleural effusion or pneumothorax. IMPRESSION: Interstitial thickening without evidence of pneumonia. ACT 112: Negative or not required by law. Electronically signed by: Ja Oneil M.D. 09/19/2024 7:45 PM PG Care Time/CCT Total # of Minutes Spent Total Time Spent with Patient: Total time spent is greater than 50% in coordination of care (as documented) at patient's floor/unit and/or counseling patient: I spent 95 minutes overall addressing this case: 20 min in medical data review/discussion with referring provider(s) and/or preparation for the visit including outside hospital review 15 min in direct interaction with the patient/exam 30 min in Advance Care Planning/Goals of Care discussions as detailed above in note (must be >16min) 15 min in subsequent review and synthesis of assessment and plan 15 min communicating with other providers regarding the patient's case: Nursing, primary team, care management Advanced Care Planning 24989 Advanced Care Planning 30 [place] [address] IN/OBS CONSULT LVL 4,60M (25 - SIGNIFICANT, SEPARATELY IDENTIFIABLE ) Patient Type New Medical Decision Making High Complexity Diagnoses Dyspnea and respiratory abnormalities R06.00; R06.89 Confusion R41.0 Muscular deconditioning R29.898 Self neglect R46.89 Advanced care planning/counseling discussion Z71.89 Palliative care by specialist Z51.5 Additional Codes Advanced Care Planning - 57327 Advanced Care Planning 30 Min: [id number] Advanced Care Planning 30 Min ([id number])
--- NOTE | 2024-09-22 10:03 | Hospitalist Progress Note ---
Date of Service September 22, 2024 Assessment & Plan (1) Acute and chronic respiratory failure with hypercapnia: Plan 84 year old man with PMHx significant for COPD, past tobacco abuse presenting with concern for shortness of breath and acute on chronic hypoxic respiratory failure. Acute on Chronic respiratory failure with hypoxia/hypercapnia Secondary to COPD exacerbation Chest CTA with no PE Respiratory acidosis secondary to above Patient originally requiring BiPAP with baseline oxygen use of 4 L Patient had been improving Per chart review, had a EXTRACTIONS TECHNOLOGIST for hypoxia on 4due to kinking in oxygen tubing. Chest x-ray at that time was unremarkable, VBG was repeated with noted persistent hypercapnia. Patient was given a dose of IV steroids and placed back on BiPAP. Pulm recs noted Awaiting palliative eval as recommended by pulm Continue nebs Will complete prednisone today Hallucinations Episodes of Agitation Possible delirium episodes versus alcohol withdrawal with noted tremors and history of anxiety However both patient and his son deny use of alcohol Head CT unremarkable Delirium precautions. Frequent reorientation, avoid sedating medications Continue to monitor AOX3 today New onset anemia Iron deficiency anemia Patient unaware of previous diagnosis FOBT done at the ER was negative Anemia panel noting iron deficiency anemia Started on oral iron supplements Continue to monitor hemoglobin. Currently stable Per the patient's son patient has never had a colonoscopy, will need close PCP follow-up for further workup Continue to monitor H/H Prediabetes Patient with noted hyperglycemia Hemoglobin A1c of 5.9 indicating a new diagnosis of prediabetes Encourage dietary changes as well as exercise PCP follow-up Skin dermatitis/Scaling Per patient's son, likely due to self-neglect as patient has personally refused to shower Continue to encourage appropriate hygiene Consider dermatology follow-up Wound Care consulted-recommending Amlactin, ordered Diet: regular DVT prophylaxis: Lovenox subcu CODE STATUS: DNR/DNI Dispo:DOROTHY working on SNF placement I spent a total of 45 minutes coordinating, documenting and providing care for this patient excluding time spent in performance of separately billed services Admission and Anticipated Discharge Date Admission Date: September 17, 2024 Subjective Patient seen and examined Reports mild congestion,exertional dyspnea Denied cough today Denied chest pain, fever, chills, nausea, vomiting Denied other complaints on ROS Reports he was on 4L at home at baseline Physical Exam Constitutional: + well hydrated and + thin; no acute dis tress Eyes: PERRL, conjunctivae normal, anicteric sclerae ENMT: external ear and nose normal, oropharynx normal Respiratory: On nasal cannula, diminished breath sounds Cardiovascular: Rate/Rhythm: regular rate and regular rhythm Gastrointestinal (Abdomen): normal bowel sounds, soft, nontender, no hepatosplenomegaly Musculoskeletal: No pedal edema Neurologic: PERRL, EOMI, accommodation nl, no face palsy, no dysarthria Psychiatric: A+Ox3, euthymic affect Results & Data Results & Data Vital Signs (Past 12 Hours) Vital Signs Temp Pulse Pulse Resp BP BP Pulse Ox 09/22/24 09:21 09/22/24 07:50 36 C L 92 H 18 101/62 97 09/22/24 07:24 73 18 98 09/22/24 03:36 37.0 C 76 20 124/63 97 09/22/24 02:47 90 21 97 09/22/24 00:18 36.6 C 82 20 142/73 H 95 09/21/24 22:50 75 O2 Del Method O2 Flow Rate FiO2 09/22/24 09:21 Nasal Cannula 5 09/22/24 07:50 BiPAP 09/22/24 07:24 BiPAP 40 09/22/24 03:36 BiPAP 5 09/22/24 02:47 40 09/22/24 00:18 BiPAP 5 09/21/24 22:50 Laboratory Results Abnormal lab results 09/21/24 09/22/24 Range/Units 20:34 05:51 RBC 4.29 L (4.70-6.10) M/uL Hgb 12.0 L (14.0-18.0) g/dl Hct 39.8 L (42.0-52.0) % MCHC 30.2 L (32.0-36.0) g/dL Lymph # (Auto) 1.07 L (1.20-3.40) K/uL [place] # (Auto) 0.93 H (0.11-0.59) K/uL Chloride 95 L (98-107) mmol/L Carbon Dioxide 41 H* (21-32) mmol/L Anion Gap 2 L (3-11) BUN/Creatinine Ratio 32.8 H (10-20) Glucose 107 H (70-99(Fasting)) mg/dl POC Glucose 124 H (70-99) mg/dl
--- NOTE | 2024-09-22 11:47 | Communication Note ---
Date of Service: September 22, 2024 error
[2024-09-23 06:22] LABS: Hematocrit (blood only) 38.2 % (42.0-52.0); Hemoglobin 11.3 g/dl (14.0-18.0); Mean Corpuscular Hemoglobin 28.4 pg (25.0-34.0); Mean Corpuscular Hgb Conc 29.6 g/dL (32.0-36.0); Mean Platelet Volume 11.1 fL (9.4-12.4); Platelet Count 162 K/uL (130-400); RDW Coefficient of Variation 13.3 % (11.5-14.5); RDW Standard Deviation 47.2 fL (36.4-46.3); Red Blood Count 3.98 M/uL (4.70-6.10); White Blood Count 6.58 K/ul (4.8-10.8)
[2024-09-23 06:23] LABS: BUN Creatinine Ratio 43.1 (10-20); Calcium 8.4 mg/dl (8.6-10.3); Creatinine Clr Calc Pharmacy 72.1 ml/min; Potassium 4.1 mmol/L (3.5-5.1)
--- NOTE | 2024-09-23 14:45 | Hospitalist Progress Note ---
Date of Service September 23, 2024 Assessment & Plan (1) Acute and chronic respiratory failure with hypercapnia: Plan 84 year old man with PMHx significant for COPD, past tobacco abuse presenting with concern for shortness of breath and acute on chronic hypoxic respiratory failure. Acute on Chronic respiratory failure with hypoxia/hypercapnia Secondary to COPD exacerbation Chest CTA with no PE Respiratory acidosis secondary to above Patient originally requiring BiPAP with baseline oxygen use of 4 L Patient had been improving Per chart review, had a SPORTS INTERN for hypoxia on 4due to kinking in oxygen tubing. Chest x-ray at that time was unremarkable, VBG was repeated with noted persistent hypercapnia. Patient was given a dose of IV steroids and placed back on BiPAP. Pulm recs noted Continue nebs Completed prednisone Palliative eval noted CM working with family to determine dispo Hallucinations Episodes of Agitation Possible delirium episodes versus alcohol withdrawal with noted tremors and history of anxiety However both patient and his son deny use of alcohol Head CT unremarkable Delirium precautions. Frequent reorientation, avoid sedating medications Continue to monitor New onset anemia Iron deficiency anemia Patient unaware of previous diagnosis FOBT done at the ER was negative Anemia panel noting iron deficiency anemia Started on oral iron supplements Continue to monitor hemoglobin. Currently stable Per the patient's son patient has never had a colonoscopy, will need close PCP follow-up for further workup Continue to monitor H/H Prediabetes Patient with noted hyperglycemia Hemoglobin A1c of 5.9 indicating a new diagnosis of prediabetes Encourage dietary changes as well as exercise PCP follow-up Skin dermatitis/Scaling Per patient's son, likely due to self-neglect as patient has personally refused to shower Continue to encourage appropriate hygiene Consider dermatology follow-up Wound Care consulted-recommending Amlactin, ordered Diet: regular DVT prophylaxis: Lovenox subcu CODE STATUS: DNR/DNI I spent a total of 40 minutes coordinating, documenting and providing care for this patient excluding time spent in performance of separately billed services Admission and Anticipated Discharge Date Admission Date: September 17, 2024 Subjective Patient seen and examined Reports mild congestion,mild cough and exertional dyspnea No worsening of symptoms Denied other complaints on ROS Physical Exam Constitutional: + well hydrated and + thin; no acute dis tress Eyes: PERRL, conjunctivae normal, anicteric sclerae ENMT: external ear and nose normal, oropharynx normal Respiratory: On nasal cannula, diminished breath sounds Cardiovascular: Rate/Rhythm: regular rate and regular rhythm Gastrointestinal (Abdomen): normal bowel sounds, soft, nontender, no hepatosplenomegaly Musculoskeletal: No pedal edema Neurologic: PERRL, EOMI, accommodation nl, no face palsy, no dysarthria Psychiatric: A+Ox3, euthymic affect Results & Data Results & Data Vital Signs (Past 12 Hours) Vital Signs Temp Pulse Pulse Resp BP Pulse Ox O2 Del Method 09/23/24 10:21 Nasal Cannula 09/23/24 08:03 36.3 C L 70 16 95/59 L 91 Nasal Cannula 09/23/24 07:15 70 18 92 Nasal Cannula 09/23/24 05:41 74 09/23/24 03:32 36.6 C 60 18 114/68 93 BiPAP 09/23/24 02:42 86 20 94 O2 Flow Rate FiO2 09/23/24 10:21 5 09/23/24 08:03 5 09/23/24 07:15 5 09/23/24 05:41 09/23/24 03:32 5 09/23/24 02:42 50 Laboratory Results Abnormal lab results 09/23/24 Range/Units 05:42 RBC 3.98 L (4.70-6.10) M/uL Hgb 11.3 L (14.0-18.0) g/dl Hct 38.2 L (42.0-52.0) % MCHC 29.6 L (32.0-36.0) g/dL RDW Std Deviation 47.2 H (36.4-46.3) fL Chloride 96 L (98-107) mmol/L Carbon Dioxide 39 H (21-32) mmol/L BUN 31 H (6-23) mg/dl BUN/Creatinine Ratio 43.1 H (10-20) Glucose 143 H (70-99(Fasting)) mg/dl Calcium 8.4 L (8.6-10.3) mg/dl
--- NOTE | 2024-09-24 13:36 | Hospitalist Progress Note ---
Date of Service September 24, 2024 Assessment & Plan (1) Acute and chronic respiratory failure with hypercapnia: Plan 84 year old man with PMHx significant for COPD, past tobacco abuse presenting with concern for shortness of breath and acute on chronic hypoxic respiratory failure. Acute on Chronic respiratory failure with hypoxia/hypercapnia Secondary to COPD exacerbation Chest CTA with no PE Respiratory acidosis secondary to above Patient originally requiring BiPAP with baseline oxygen use of 4 L Patient had been improving Per chart review, had a INTERNETWORKING TECHNICIAN for hypoxia on 4due to kinking in oxygen tubing. Chest x-ray at that time was unremarkable, VBG was repeated with noted persistent hypercapnia. Patient was given a dose of IV steroids and placed back on BiPAP. Pulm recs noted Continue nebs Completed prednisone Palliative eval noted CM working with family to determine dispo Hallucinations Episodes of Agitation Possible delirium episodes Head CT unremarkable Delirium precautions. Frequent reorientation, avoid sedating medications Continue to monitor New onset anemia Iron deficiency anemia Patient unaware of previous diagnosis FOBT done at the ER was negative Anemia panel noting iron deficiency anemia Started on oral iron supplements Continue to monitor hemoglobin. Currently stable Per the patient's son patient has never had a colonoscopy, will need close PCP follow-up for further workup Prediabetes Patient with noted hyperglycemia Hemoglobin A1c of 5.9 indicating a new diagnosis of prediabetes Encourage dietary changes as well as exercise PCP follow-up Skin dermatitis/Scaling Per patient's son, likely due to self-neglect as patient has personally refused to shower Continue to encourage appropriate hygiene Consider dermatology follow-up Continue Amlactin Diet: regular DVT prophylaxis: Lovenox subcu CODE STATUS: DNR/DNI I spent a total of 35 minutes coordinating, documenting and providing care for this patient excluding time spent in performance of separately billed services Admission and Anticipated Discharge Date Admission Date: September 17, 2024 Subjective Patient seen and examined Reports mild cough and exertional dyspnea No worsening of symptoms Denied other complaints on ROS Physical Exam Constitutional: + well hydrated and + thin; no acute dis tress Eyes: PERRL, conjunctivae normal, anicteric sclerae ENMT: external ear and nose normal, oropharynx normal Respiratory: On nasal cannula, diminished breath sounds Cardiovascular: Rate/Rhythm: regular rate and regular rhythm Gastrointestinal (Abdomen): normal bowel sounds, soft, nontender, no hepatosplenomegaly Musculoskeletal: No pedal edema Neurologic: PERRL, EOMI, accommodation nl, no face palsy, no dysarthria Psychiatric: A+Ox3, euthymic affect Results & Data Results & Data Vital Signs (Past 12 Hours) Vital Signs Temp Pulse Pulse Resp BP Pulse Ox O2 Del Method 09/24/24 10:55 36.5 C 79 17 101/63 99 Nasal Cannula 09/24/24 10:49 Nasal Cannula 09/24/24 07:28 69 09/24/24 07:18 68 17 99 BiPAP 09/24/24 07:16 17 99 09/24/24 07:07 36.6 C 69 16 107/59 L 100 CPAP 09/24/24 03:33 71 17 96 09/24/24 03:20 36.5 C 71 18 99/52 L 96 Nasal Cannula O2 Flow Rate FiO2 09/24/24 10:55 4 09/24/24 10:49 5 09/24/24 07:28 09/24/24 07:18 50 09/24/24 07:16 50 09/24/24 07:07 5 09/24/24 03:33 50 09/24/24 03:20 5
[2024-09-24] MEDS: ADVANCED PROBIOTIC 625 MG CAPSULE PO SCH (17:11)
--- NOTE | 2024-09-25 12:58 | Hospitalist Progress Note ---
Date of Service September 25, 2024 Assessment & Plan (1) Acute and chronic respiratory failure with hypercapnia: Plan 84 year old man with PMHx significant for COPD, past tobacco abuse presenting with concern for shortness of breath and acute on chronic hypoxic respiratory failure. Acute on Chronic respiratory failure with hypoxia/hypercapnia Secondary to COPD exacerbation Chest CTA with no PE Respiratory acidosis secondary to above Patient originally requiring BiPAP with baseline oxygen use of 4 L Patient had been improving Per chart review, had a RIG MECHANIC for hypoxia on 09/19/2024 due to kinking in oxygen tubing. Chest x-ray at that time was unremarkable, VBG was repeated with noted persistent hypercapnia. Patient was given a dose of IV steroids and placed back on BiPAP. Pulm recs noted Continue nebs Completed prednisone Palliative eval noted CM working on dispo with family Hallucinations Episodes of Agitation Possible delirium episodes Head CT unremarkable Delirium precautions. Frequent reorientation, avoid sedating medications New onset anemia Iron deficiency anemia Patient unaware of previous diagnosis FOBT done at the ER was negative Anemia panel noting iron deficiency anemia Started on oral iron supplements Continue to monitor hemoglobin. Currently stable Per the patient's son patient has never had a colonoscopy, will need close PCP follow-up for further workup Prediabetes Patient with noted hyperglycemia Hemoglobin A1c of 5.9 indicating a new diagnosis of prediabetes Encourage dietary changes as well as exercise PCP follow-up Skin dermatitis/Scaling Per patient's son, likely due to self-neglect as patient has personally refused to shower Continue to encourage appropriate hygiene Consider dermatology follow-up Continue Amlactin Diet: regular DVT prophylaxis: Lovenox subcu CODE STATUS: DNR/DNI I spent a total of 30 minutes coordinating, documenting and providing care for this patient excluding time spent in performance of separately billed services Admission and Anticipated Discharge Date Admission Date: September 17, 2024 Subjective Patient seen and examined Reports mild cough Denied other complaints on ROS Physical Exam Constitutional: + well hydrated and + thin; no acute dis tress Eyes: PERRL, conjunctivae normal, anicteric sclerae ENMT: external ear and nose normal, oropharynx normal Respiratory: On nasal cannula. Diminished breath sounds Cardiovascular: Rate/Rhythm: regular rate and regular rhythm Gastrointestinal (Abdomen): normal bowel sounds, soft, nontender, no hepa tosplenomegaly Neurologic: PERRL, EOMI, accommodation nl, no face palsy, no dysarthria Psychiatric: A+Ox3, euthymic affect Results & Data Results & Data Vital Signs (Past 12 Hours) Vital Signs Temp Pulse Pulse Resp BP Pulse Ox O2 Del Method 09/25/24 08:20 Nasal Cannula 09/25/24 07:56 69 18 90 Nasal Cannula 09/25/24 07:19 36.7 C 71 16 112/57 L 95 Nasal Cannula 09/25/24 02:59 67 20 99 O2 Flow Rate FiO2 09/25/24 08:20 4 09/25/24 07:56 4 09/25/24 07:19 4 09/25/24 02:59 50
--- NOTE | 2024-09-26 10:37 | Hospitalist Progress Note ---
Date of Service September 26, 2024 Assessment & Plan (1) Acute and chronic respiratory failure with hypercapnia: Plan 84 year old man with PMHx significant for COPD, past tobacco abuse presenting with concern for shortness of breath and acute on chronic hypoxic respiratory failure. Acute on Chronic respiratory failure with hypoxia/hypercapnia Secondary to COPD exacerbation Chest CTA with no PE Respiratory acidosis secondary to above Patient originally requiring BiPAP with baseline oxygen use of 4 L Patient had been improving Per chart review, had a COMPUTER SUPPORT ANALYST for hypoxia on 09/19/2024 due to kinking in oxygen tubing. Chest x-ray at that time was unremarkable, VBG was repeated with noted persistent hypercapnia. Patient was given a dose of IV steroids and placed back on BiPAP. Pulm recs noted Continue nebs. Patient reports he has nebulizer machine at home. Will need nebs prescribed on dc Completed prednisone Palliative eval noted CM working on dispo with family Hallucinations Episodes of Agitation Possible delirium episodes Head CT unremarkable Delirium precautions. Frequent reorientation, avoid sedating medications New onset anemia Iron deficiency anemia Patient unaware of previous diagnosis FOBT done at the ER was negative Anemia panel noting iron deficiency anemia Started on oral iron supplements Continue to monitor hemoglobin. Currently stable Per the patient's son patient has never had a colonoscopy, will need close PCP follow-up for further workup Prediabetes Patient with noted hyperglycemia Hemoglobin A1c of 5.9 indicating a new diagnosis of prediabetes Encourage dietary changes as well as exercise PCP follow-up Skin dermatitis/Scaling Per patient's son, likely due to self-neglect as patient has personally refused to shower Continue to encourage appropriate hygiene Consider dermatology follow-up Continue Amlactin Diet: regular DVT prophylaxis: Lovenox subcu CODE STATUS: DNR/DNI I spent a total of 30 minutes coordinating, documenting and providing care for this patient excluding time spent in performance of separately billed services Admission and Anticipated Discharge Date Admission Date: September 17, 2024 Subjective Patient seen and examined Reports mild cough Denied any new complaints on ROS Physical Exam Constitutional: + well hydrated and + thin; no acute dis tress Eyes: PERRL, conjunctivae normal, anicteric sclerae ENMT: external ear and nose normal, oropharynx normal Respiratory: On nasal cannula, diminished breath sounds Cardiovascular: Rate/Rhythm: regular rate and regular rhythm Gastrointestinal (Abdomen): normal bowel sounds, soft, nontender, no hepatosplenomegaly Musculoskeletal: No pedal edema Neurologic: PERRL, EOMI, accommodation nl, no face palsy, no dysarthria Psychiatric: A+Ox3, euthymic affect Results & Data Results & Data Vital Signs (Past 12 Hours) Vital Signs Temp Pulse Pulse Resp BP Pulse Ox O2 Del Method 09/26/24 07:58 36.6 C 68 16 110/60 96 Nasal Cannula 09/26/24 07:38 79 16 95 09/26/24 07:38 78 16 95 BiPAP 09/26/24 02:38 70 17 99 09/25/24 23:53 69 21 98 O2 Flow Rate FiO2 09/26/24 07:58 4 09/26/24 07:38 50 09/26/24 07:38 50 09/26/24 02:38 50 09/25/24 23:53 50
[2024-09-26 20:12] VITALS: TEMP 98.2
[2024-09-27 03:03] VITALS: RESP 16
[2024-09-27 07:46] VITALS: BP 99/58; PULSE 64; O2SAT 94
--- NOTE | 2024-09-27 13:59 | Discharge Summary ---
Date of Service September 27, 2024 Admission HPI Per Admitting Provider History obtained from patient and records. Medical history significant for COPD, past tobacco abuse. Patient moved to [facility] late last year from [place], [place]. Has not been able to establish with local PCP. Few days ago, patient noted intermittent light flashes on both eyes. No eye pain or blurred vision or head trauma. Denies headache. Left elbow got scraped on the door without unusual bleeding. Today, patient noted more SOB on exertion. Denies cough or chest pain symptoms. Denies fluid retention. Denies abdominal pain/black/bloody stools/hematuria. O2 sat 60s upon arrival at the ER. BiPAP initiated at the ER. 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 Admission Exam Per Admitting Provider GENERAL: Comfortable, pleasant, slightly anxious, no respiratory distress SKIN: Pallor, warm HEENT: Partial alopecia, pale palpebral conjunctivae, no ptosis, dry buccal mucosa, BiPAP in place NECK : Supple, no tenderness CHEST : Decreased breath sounds, scattered expiratory wheezes, no tenderness HEART : RRR, no obvious murmurs ABDOMEN: Some distention, nontender RECTAL : Intact sphincter, brown stool (FOBT negative) EXTREMITIES : Bilateral LE swelling without tenderness (chronic as per patient), thickened toenails, no other conspicuous deformities noted NEUROLOGIC : Coherent, no facial asymmetry, tremulous, slightly hard of hearing, gait and stance not assessed Principal Diagnosis Acute on chronic respiratory failure with hypoxia and hypercapnea COPD exacerbation Anemia Discharge Exam Constitutional + well hydrated and + thin; no acute distress Eyes PERRL, conjunctivae normal, anicteric sclerae ENMT external ear and nose normal, oropharynx normal Respiratory On nasal cannula, diminished breath sounds Cardiovascular Rate/Rhythm: regular rate and regular rhythm Gastrointestinal (Abdomen) normal bowel sounds, soft, nontender, no hepatosplenomegaly Musculoskeletal No pedal edema Neurologic PERRL, EOMI, accommodation nl, no face palsy, no dysarthria Psychiatric A+Ox3, euthymic affect Discharge Data Allergies Allergy/AdvReac Type Severity Reaction Status Date / Time No Known Allergies Allergy Unverified 09/17/24 22:43 Consultations 09/17/24 19:43 ED Decision to Admit Stat 09/18/24 06:08 HIM [Consult Health Information Management] Routine 09/20/24 07:16 Consult Pulmonology Routine 09/21/24 14:17 Consult Palliative Care Routine Ordered Studies 09/17/24 15:31 CT angio head w con Stat CT angio neck with con Stat CT head/brain wo con Stat 09/17/24 20:54 CT angio chest PE protocol Stat Hospital Course (1) Acute and chronic respiratory failure with hypercapnia: Plan 84 year old man with PMHx significant for COPD, past tobacco abuse presenting with concern for shortness of breath and acute on chronic hypoxic respiratory failure. Acute on Chronic respiratory failure with hypoxia/hypercapnia Secondary to COPD exacerbation Chest CTA with no PE Respiratory acidosis secondary to above Patient originally requiring BiPAP with baseline oxygen use of 4 L Patient had a MANAGER ONLINE for hypoxia on 09/19/2024 due to kinking in oxygen tubing. Chest x-ray at that time was unremarkable, VBG was repeated with noted persistent hypercapnia. Patient was given a dose of IV steroids and placed back on BiPAP. Pulm recs noted Continue nebs. Patient reports he has nebulizer machine at home. Will need nebs prescribed on dc Completed prednisone Palliative evaluated inpatient. Patient and son will like to transition to home hospice eventually Hallucinations Episodes of Agitation Had some delirium episodes inpatient Head CT unremarkable New onset anemia Iron deficiency anemia Patient unaware of previous diagnosis FOBT done at the ER was negative Anemia panel noted iron deficiency anemia Started on oral iron supplements Prediabetes Patient with noted hyperglycemia Hemoglobin A1c of 5.9 indicating a new diagnosis of prediabetes Skin dermatitis/Scaling Per patient's son, likely due to self-neglect as patient has personally refused to shower Continue to encourage appropriate hygiene Consider dermatology follow-up Continue Amlactin Total Time Total Time Spent Total Time Spent (In Minutes): 40 Total Time Includes: Examination of the Patient, Discharge Planning and Medication Reconciliation Discharge Plan Discharge Items Patient Disposition: Personal Halfway Reason For Visit: RESP FAILURE Discharge Diagnosis: Acute on chronic respiratory failure with hypoxia and hypercapnea COPD exacerbation Anemia Activity: Resume your previous activity Non-emergency contact: Primary Care Provider Call non-emergency contact if: you have any medication questions Follow-up/Referrals: PCP,NO [Primary Care Provider] - Diet: Regular Addtl Attending Provider Instructions: Mr Wells You were hospitalized and managed for the above listed diagnoses. You are being discharged on medications. Please ensure you use them as discussed with your nebulizer. It was a pleasure taking care of you. Pending Studies at Discharge: No Stand-Alone Forms: My [facility] [employer], Smoking Cessation Skilled Items Patient informed of condition?: Yes DNR: Yes Discharge Level of Care: Other Communicable Disease: No Discharge Prognosis: Stable Lines: None Urinary Catheter: No Medications and DC Order Prescriptions: New formoterol fumarate [Perforomist] 20 mcg/2 mL Solution For Nebulization 20 mcg NEB BIDR Qty: 120 0RF levalbuterol HCl 0.63 mg/3 mL Solution For Nebulization 0.63 mg NEB Q6H PRN (Reason: shortness of breath or wheezing) Qty: 90 0RF ferrous sulfate 325 mg (65 mg iron) Tablet,Delayed Release (Dr/Ec) 325 mg PO QAM Qty: 30 0RF budesonide 0.5 mg/2 mL Suspension For Nebulization 0.25 mg NEB BIDR Qty: 60 0RF Discharge Orders: Discharge Order (Routine); Ordered 09/27/24 Ordered By: Marisol Reyes Admission Data Admit Date/Time: 09/17/24 20:53 Attending Provider: Marisol Reyes I. Admit Provider: Damian Young Primary Care Provider: PCP,NO Other Providers: Damian Young; Zaid Melendrez; Sharita Sadler Other Interventions: Discharge Summary Assessment (RN) Last Done: 09/27/24 12:36
== END 2024-09-27 17:30 | disposition hospice, inpatient (51) | DRG 190 ==
LOC: ED 14:54 → 2N 20:53 → SUATTDRO 20:53 → 2N 09-18 00:14 → 3W 09-24 20:54

== ENCOUNTER 2025-01-09 14:18 | Observation (INO) ==
[2025-01-09 14:47] VITALS: TEMP 97.9
[2025-01-09] MEDS: NALOXONE HCL 0.4 MG/1 ML VIAL/CARP ONE ×2 (15:40→16:14)
[2025-01-09] MEDS: ALBUT/IPRATROP 3MG/0.5MG NEB 3 ML VIAL ONE (15:47)
--- NOTE | 2025-01-09 15:55 | Emergency Department Note ---
Impression & Plan Respiratory acidosis, Narcotic overdose, Somnolence, Hospice care ED Provider Note NAME: MARYBEL PATEL AGE: 84 SEX: M : 1940 ARRIVES VIA: Ambulance INFORMANT: [Nursing, EMS] ED PROVIDER(S): [David Strauss MD] CHIEF COMPLAINT: Lethargic HISTORY OF PRESENT ILLNESS: The patient is an 84-year-old male who is by report on hospice. The patient was by report, given a total of 20 mg of morphine and 1 mg of Ativan within an hour. He became quite somnolent and hypoxic and was sent to the ED. He did receive a small dose of Narcan prior to arrival and this by report, did improve his mentation. I was called to the room emergently as the patient was again quite somnolent and his O2 saturation was in the 50s and 60s. PMHx/PSHx/Social Hx: See Below PHYSICAL EXAM: GENERAL: Patient is in no acute distress. HEENT: No acute trauma, normocephalic atraumatic, mucous membranes dry, no nasal congestion. NECK: No stridor, no adenopathy, no meningismus, trachea is midline. LUNGS: Markedly diminished breath sounds bilaterally, no wheezing, poor inspiratory effort. HEART: Without murmurs gallops or rubs, regular rate and rhythm. ABDOMEN: Soft, nontender, no peritonitis. EXTREMITIES: No cyanosis, full range of motion of all the joints without pain or difficulty. Chronic lower extremity erythema and skin change bilaterally. NEUROLOGIC: Somnolent, awakes to very loud voice or sternal rub. Does move all extremities. SKIN: No jaundice, no diaphoresis. DIFFERENTIAL DIAGNOSIS: Accidental narcotic overdose, COPD flare, CHF, among others. EMERGENCY DEPARTMENT PROCEDURES: MEDICAL DECISION MAKING: There is no leukocytosis. The patient is anemic however, this is baseline looking back at previous testing. There is a normal platelet count. No coagulopathy. VBG does show respiratory acidosis with a CO2 of 109 and a pH of 7.27. Renal panel testing shows a high CO2 consistent with the respiratory acidosis. No renal failure. No concerning liver enzyme elevation. ECG shows a sinus rhythm, no obvious ischemia. Cardiac enzyme testing x 1 is not consistent with acute cardiac injury. Chest x-ray shows some chronic change as well as some potential fluid overload versus, poor inspiratory effort. On exam, the patient was quite somnolent. At times, he was hypoxic. He had poor inspiratory effort. The patient received a total of 2 more doses of IV Narcan, 0.4 mg. He was given a DuoNeb. He was eventually placed on BiPAP. With the above interventions, the patient has become much more awake and alert. In short, the patient appears to have accidentally received too much narcotic. This led to somnolence, respiratory decline and respiratory failure. With our interventions, he has shown marked improvement. I did speak with the patient about his condition and our findings. I did speak with case management. The on-call hospitalist was consulted, admission at least overnight was warranted. Prior/Outside records/notes reviewed: Today's EMS notes describing his presentation and transport to this hospital. ECG per my interpretation: Indication was respiratory distress. The ECG shows a normal sinus rhythm with a rate of 82. There is an incomplete right bundle branch block. There is no obvious ST elevation, no PVCs. The QTc is 429. Continuous Cardiac Monitoring per my interpretation: An order was placed for continuous cardiac monitoring. The monitor shows a rate of 86 with normal sinus rhythm. Imaging/x-ray results per my interpretation: Chest x-ray shows some chronic change and some potential fluid overload although, the film appears fairly similar to previous films. Chronic Medical/Social conditions affecting care: Currently on hospice. Care/Management discussed with: Case management, the on-call hospitalist. Level of care consideration(s): After review of the information above and other included data: --I believe the patient requires escalation of care to admission DISPOSITION: Admission Past Med/Surg History Problem List (Updated 01/09/25 @ 18:41 by David Strauss MD) Hospice care (Acute) Somnolence (Acute) Narcotic overdose (Acute) Respiratory acidosis (Acute) Palliative care by specialist Advanced care planning/counseling discussion Self neglect Muscular deconditioning Confusion Dyspnea and respiratory abnormalities Dyspnea Acute and chronic respiratory failure with hypercapnia Elbow wound (Acute) Changes in vision (Acute) Medical History Acute exacerbation of chronic obstructive pulmonary disease Social History Smoking Status: Unknown if ever smoked Tobacco Type: Cigarettes Hx Alcohol Use: No Hx Substance Use: No Preferred Language: Nicaraguan Communication Ability: Effective Clinical Pharmacologist Required: No Beliefs That Will Affect Care: None Current Living Situation: Personal Care Facility Feels Safe at Home: Yes Assistive Devices: Oxygen - Continuous and Scooter/Electric Scooter Allergies Allergies Allergy/AdvReac Type Severity Reaction Status Date / Time No Known Allergies Allergy Unverified 09/17/24 22:43 Home Meds Previous Rx's Medication Instructions Recorded budesonide 0.5 mg/2 mL suspension 0.25 mg NEB BIDR #60 mL 09/27/24 for nebulization ferrous sulfate 325 mg (65 mg 325 mg PO QAM #30 tabs 09/27/24 iron) tablet,delayed release formoterol fumarate 20 mcg/2 mL 20 mcg (2 mL) NEB BIDR #120 mL 09/27/24 solution for nebulization (Perforomist) levalbuterol HCl 0.63 mg/3 mL 0.63 mg (3 mL) NEB Q6H PRN 09/27/24 solution for nebulization shortness of breath or wheezing #90 mL Results & Data (ED) Vital Signs Vital Signs - 24 hr 01/09/25 14:20 01/09/25 14:20 01/09/25 14:20 Temperature 36.6 C Temperature Source Oral Pulse Rate 88 Pulse Rate [Right Finger] Respiratory Rate 20 Respiratory Effort / Characteristics Non-Labored Spontaneous Respiratory Depth Normal Respiratory Pattern Regular Blood Pressure 126/63 Blood Pressure [Right Arm] Blood Pressure Mean 84 Blood Pressure Mean [Right Arm] Pulse Oximetry 94 47 L Oxygen Delivery Method Nasal Cannula Room Air Nasal Cannula Oxygen Flow Rate 3 3 Fraction of Inspired Oxygen SaO2/FiO2 Ratio Sepsis Recent Fever Within 48 Hours No Sepsis New/Unexplained Change in Mental Status N/A Sepsis Action Taken by Nursing No Action Required Oxygen Flow Rate - Titration 3 Pulse Oximetry Post Tiitration 94 01/09/25 15:22 01/09/25 15:30 01/09/25 15:40 Temperature Temperature Source Pulse Rate 88 Pulse Rate [Right Finger] 86 Respiratory Rate 20 Respiratory Effort / Characteristics Non-Labored Spontaneous Respiratory Depth Normal Respiratory Pattern Regular Blood Pressure Blood Pressure [Right Arm] 126/63 Blood Pressure Mean Blood Pressure Mean [Right Arm] 84 Pulse Oximetry Oxygen Delivery Method Nasal Cannula Nasal Cannula Oxygen Flow Rate 4 4 Fraction of Inspired Oxygen SaO2/FiO2 Ratio Sepsis Recent Fever Within 48 Hours Sepsis New/Unexplained Change in Mental Status Sepsis Action Taken by Nursing Oxygen Flow Rate - Titration Pulse Oximetry Post Tiitration 01/09/25 16:09 01/09/25 16:32 01/09/25 17:52 Temperature Temperature Source Pulse Rate 84 Pulse Rate [Right Finger] 86 85 Respiratory Rate 22 14 20 Respiratory Effort / Characteristics Non-Labored Spontaneous Non-Labored Respiratory Depth Normal Normal Respiratory Pattern Regular Regular Blood Pressure Blood Pressure [Right Arm] 124/66 125/77 Blood Pressure Mean Blood Pressure Mean [Right Arm] 85 93 Pulse Oximetry 82 L 91 94 Oxygen Delivery Method Nasal Cannula BiPAP Oxygen Flow Rate 5 Fraction of Inspired Oxygen 50 40 SaO2/FiO2 Ratio 235 Sepsis Recent Fever Within 48 Hours Sepsis New/Unexplained Change in Mental Status Sepsis Action Taken by Nursing Oxygen Flow Rate - Titration Pulse Oximetry Post Tiitration 01/09/25 17:59 Temperature Temperature Source Pulse Rate 86 Pulse Rate [Right Finger] Respiratory Rate Respiratory Effort / Characteristics Respiratory Depth Respiratory Pattern Blood Pressure Blood Pressure [Right Arm] Blood Pressure Mean Blood Pressure Mean [Right Arm] Pulse Oximetry Oxygen Delivery Method Oxygen Flow Rate Fraction of Inspired Oxygen SaO2/FiO2 Ratio Sepsis Recent Fever Within 48 Hours Sepsis New/Unexplained Change in Mental Status Sepsis Action Taken by Nursing Oxygen Flow Rate - Titration Pulse Oximetry Post Tiitration Home Medications Current Medication List: was personally reviewed by me Laboratory Data Attestation: I reviewed the patient's lab results. 01/09/25 14:35 01/09/25 14:35 Lab Results 01/09/25 01/09/25 Range/Units 14:35 16:08 WBC 10.40 (4.8-10.8) K/ul RBC 4.02 L (4.70-6.10) M/uL Hgb 11.7 L (14.0-18.0) g/dl Hct 40.1 L (42.0-52.0) % MCV 99.8 (80.0-100.0) fL MCH 29.1 (25.0-34.0) pg MCHC 29.2 L (32.0-36.0) g/dL RDW Std Deviation 44.4 (36.4-46.3) fL RDW Coeff of Escobar 12.2 (11.5-14.5) % Plt Count 179 (130-400) K/uL MPV 11.0 (9.4-12.4) fL Immature Gran % (Auto) 0.3 % Neut % (Auto) 76.8 % Lymph % (Auto) 10.6 % [place] % (Auto) 9.9 % Eos % (Auto) 2.0 % Baso % (Auto) 0.4 % Neut # (Auto) 7.99 H (1.40-6.50) K/uL Lymph # (Auto) 1.10 L (1.20-3.40) K/uL [place] # (Auto) 1.03 H (0.11-0.59) K/uL Eos # (Auto) 0.21 (0.00-0.50) K/uL Baso # (Auto) 0.04 (0.00-0.20) K/uL Immature Gran # (Auto) 0.03 (0.01-0.20) K/uL PT 10.9 (9.0-12.0) Seconds INR 1.0 (0.9-1.1) APTT 28 (21-31) Seconds PTT Ratio 1.0 VBG pH 7.27 L (7.36-7.41) VBG pCO2 109 H (38-50) mmHg VBG pO2 26 mmHg VBG HCO3 50 mmol/L VBG O2 Saturation < 60.0 % VBG Base Excess 17.6 mEq/L Sodium 141 (136-145) mmol/L Potassium 4.6 (3.5-5.1) mmol/L Chloride 94 L (98-107) mmol/L Carbon Dioxide > 45 H* (21-32) mmol/L Anion Gap TNP BUN 23 (6-23) mg/dl Creatinine 0.64 (0.6-1.4) mg/dl Est Cr Clr Drug Dosing Not Reportable eGFR 94.52 BUN/Creatinine Ratio 35.9 H (10-20) Glucose 118 H (70-99(Fasting)) mg/dl Calcium 9.3 (8.6-10.3) mg/dl Magnesium 2.1 (1.7-2.4) mg/dl Total Bilirubin 0.4 (0.2-1.0) mg/dl AST 18 (13-39) U/L ALT 10 (7-52) U/L Alkaline Phosphatase 71 (34-104) U/L Troponin I High Sens 9.2 (0-20) pg/ml Total Protein 7.1 (6.0-8.3) gm/dl Albumin 3.4 (3.4-5.0) gm/dl Globulin 3.7 (2.5-4.0) gm/dl Albumin/Globulin Ratio 0.9 (0.9-2) Administered Medications Discontinued Medications Albuterol (Albut/Ipratrop 3mg/0.5mg Neb 3 Ml Vial) Confirm Administered Dose 3 ml .ROUTE .STK-MED ONE Stop: 01/09/25 15:46 Last Admin: 01/09/25 15:47 Dose: 3 ml Documented By: NRB Albuterol (Albut/Ipratrop 3mg/0.5mg Neb 3 Ml Vial) 3 ml NEB NOW STA; Protocol Stop: 01/09/25 15:51 Last Admin: 01/09/25 15:58 Dose: Not Given Documented By: NRB Naloxone HCl (Naloxone Hcl 0.4 Mg/1 Ml Vial/Carp) Confirm Administered Dose 0.[address]-MED ONE Stop: 01/09/25 15:38 Last Admin: 01/09/25 15:40 Dose: 0.4 mg Documented By: NRB Naloxone HCl (Naloxone Hcl 0.4 Mg/1 Ml Vial/Carp) Confirm Administered Dose 0.4 mg .ROUTE .[employer]-MED ONE Stop: 01/09/25 16:12 Last Admin: 01/09/25 16:14 Dose: 0.4 mg Documented By: NRB Naloxone HCl (Naloxone Hcl 0.4 Mg/1 Ml Vial/Carp) 0.4 mg IV NOW STA Stop: 01/09/25 16:21 Last Admin: 01/09/25 16:21 Dose: Not Given Documented By: NRB Imaging Data Radiologist's Impression: Chest X-Ray 01/09/25 15:50 INDICATION: Cough. TECHNIQUE: Frontal radiograph of the chest. COMPARISON: Radiograph from 09/19/2024. FINDINGS: Moderate multifocal infiltrates/edema. Mild cardiomegaly. Trace pleural effusions. Mild cardiomegaly. No pneumothorax. No acute fracture. IMPRESSION: Moderate multifocal infiltrates/edema. Trace pleural effusions. Electronically signed by Carlos Webb 01-09-2025 5:47 PM Discharge Plan Visit Data Chief Complaint: Lethargic ED Provider: David Strauss Discharge Problem: Respiratory acidosis, Narcotic overdose, Somnolence, Hospice care Patient Disposition: Admitted As Inpatient Condition: Fair Forms Stand Alone Forms: My [facility] Finding Something 3 Prescriptions Prescriptions: No Action formoterol fumarate [Perforomist] 20 mcg/2 mL Solution For Nebulization 20 mcg NEB BIDR Qty: 120 0RF levalbuterol HCl 0.63 mg/3 mL Solution For Nebulization 0.63 mg NEB Q6H PRN (Reason: shortness of breath or wheezing) Qty: 90 0RF ferrous sulfate 325 mg (65 mg iron) Tablet,Delayed Release (Dr/Ec) 325 mg PO QAM Qty: 30 0RF budesonide 0.5 mg/2 mL Suspension For Nebulization 0.25 mg NEB BIDR Qty: 60 0RF Referrals Referrals: PCP,NO [Primary Care Provider] - Discharge Problem: Narcotic overdose Qualifiers: Encounter type: initial encounter Injury intent: accidental or unintentional Q ualified Code(s): T40.601A - Poisoning by unspecified narcotics, accidental (unintentional), initial encounter
[2025-01-09] MEDS: ALBUT/IPRATROP 3MG/0.5MG NEB 3 ML VIAL NEB STA (15:58)
[2025-01-09 16:05] LABS: Basophils # (auto) 0.04 K/uL (0.00-0.20); Basophils % (auto) 0.4 %; Eosinophils # (auto) 0.21 K/uL (0.00-0.50); Hematocrit (blood only) 40.1 % (42.0-52.0); Hemoglobin 11.7 g/dl (14.0-18.0); Immature Granulocytes # (auto) 0.03 K/uL (0.01-0.20); Immature Granulocytes % (auto) 0.3 %; Lymphocytes % (auto) 10.6 %; Mean Corpuscular Hemoglobin 29.1 pg (25.0-34.0); Mean Corpuscular Hgb Conc 29.2 g/dL (32.0-36.0); Mean Corpuscular Volume 99.8 fL (80.0-100.0); Monocytes # (auto) 1.03 K/uL (0.11-0.59); Monocytes % (auto) 9.9 %; Neutrophils # (auto) 7.99 K/uL (1.40-6.50); Neutrophils % (auto) 76.8 %; Platelet Count 179 K/uL (130-400); RDW Coefficient of Variation 12.2 % (11.5-14.5); RDW Standard Deviation 44.4 fL (36.4-46.3); Red Blood Count 4.02 M/uL (4.70-6.10)
[2025-01-09 16:17] LABS: Base Excess VBG 17.6 mEq/L; HCO3 VBG 50 mmol/L; Oxygen Saturation VBG < 60.0 %; PCO2 VBG 109 mmHg (38-50); PO2 VBG 26 mmHg; pH VBG 7.27 (7.36-7.41)
[2025-01-09 16:18] LABS: Alanine Aminotransferase 10 U/L (7-52); Albumin Globulin Ratio 0.9 (0.9-2); Albumin Level 3.4 gm/dl (3.4-5.0); Alkaline Phosphatase 71 U/L (34-104); Aspartate Aminotransferase 18 U/L (13-39); BUN Creatinine Ratio 35.9 (10-20); Bilirubin,Total 0.4 mg/dl (0.2-1.0); Blood Urea Nitrogen 23 mg/dl (6-23); Calcium 9.3 mg/dl (8.6-10.3); Carbon Dioxide > 45 mmol/L (21-32); Chloride 94 mmol/L (98-107); Globulin 3.7 gm/dl (2.5-4.0); Glucose 118 mg/dl (70-99(Fasting)); Magnesium 2.1 mg/dl (1.7-2.4); Potassium 4.6 mmol/L (3.5-5.1); Sodium 141 mmol/L (136-145); Total Protein 7.1 gm/dl (6.0-8.3); Troponin I High Sensitivity 9.2 pg/ml (0-20)
[2025-01-09] MEDS: NALOXONE HCL 0.4 MG/1 ML VIAL/CARP IV STA (16:21)
[2025-01-09 16:32] LABS: Partial Thromboplastin Time 28 Seconds (21-31); Prothrombin Time 10.9 Seconds (9.0-12.0)
--- NOTE | 2025-01-09 17:48 | XRay Report ---
INDICATION: Cough. TECHNIQUE: Frontal radiograph of the chest. COMPARISON: Radiograph from 09/19/2024. FINDINGS: Moderate multifocal infiltrates/edema. Mild cardiomegaly. Trace pleural effusions. Mild cardiomegaly. No pneumothorax. No acute fracture. IMPRESSION: Moderate multifocal infiltrates/edema. Trace pleural effusions. Electronically signed by Carlos Webb 01-09-2025 5:47 PM
[2025-01-09 17:55] VITALS: BP 125/77
--- NOTE | 2025-01-09 18:45 | History & Physical Report ---
Date of Service January 09, 2025 Assessment & Plan (1) Narcotic overdose: (2) Comfort measures only status: (3) Hospice care: Plan Mr. Wells is an 84 year old man with PMHx significant for COPD, past tobacco abuse, on hospice who presented to the ED for acute encephalopathy iso accidental mediation overdose. Patient to be admitted on med surg on comfort measures until discharge to home with hospice tomorrow. Case management aware of situation and will notify CM in am. Discussed case with son. Clarified that admission would not correct the other chronic comorbidities that are progressive and ongoing in the nature of hospice care. Agreed that despite mechanical fall, patient would not want to go to a rehab facility. Agreed that admission would be for comfort measures and to facilitate morning discharge given late hour and inability for nursing or caregiver to receive patient in residence. 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 #hospice care cpap for comfort qhs nebs/breathing treatments for comfort roxinol for resp distress Comfort measures placed #Acute encephalopathy iso medication overdose s/p 20mg reportedly from hospice more responsive s/p 0.4mg narcan IV with improved mentation brief bipap iso acute resp acidosis noted iso multiple comorbidities delirium precautions Admit to med surg DNR/DNI plan for discharge in am Admission and Anticipated Discharge Date Admission Date: Time spent evaluating patient, direct bedside care, chart review, placing orders, interpretation of diagnostic studies, discussion with consultants, patient, and family members, as well as other required patient management activities is 75 minutes. History of Present Illness Chief Complaint: AMS Primary Care Provider: NO PCP Mr. Wells is an 84 year old man with PMHx significant for COPD, past tobacco abuse, on hospice who presented to the ED for acute encephalopathy iso accidental mediation overdose. Patient reportedly experienced a fall this am and hospice nursing worked to manage pain with a reported 20mg IV morphine in less than 1 hour--resulting in confusion and reduced respirtory rate. Patient presented to ED and placed on bipap after multiple narcan administrations. Patient expressed desire to discharge home with hospice, however, given time of night and patient's fall it was decided to admit under comfort measures with plan for discharge tomorrow. On exam, patient states he isn't in any pain. He states his name and he is in "[facility]" --he reports focus on just wanting to watch the game and get home. He denies any acute concerns In the ED, vitals were notable for BP of 120s, HR of 80s, and O2 sat of *90s on Bipap, then mid90s on 6L NC Imaging revealed edema and infiltrates EKG NSR with PACs RBBB ED interventions: 0.4mg naltrexone x 2, albuterol Patient to be admitted to med/surg for further comfort measures until dispo with home hospice tomorrow Allergies Allergy/AdvReac Type Severity Reaction Status Date / Time No Known Allergies Allergy Unverified 09/17/24 22:43 Home Medications Medication Instructions Recorded Confirmed Type budesonide 0.5 mg/2 mL suspension 0.25 mg NEB BIDR #60 mL 09/27/24 01/09/25 Rx for nebulization levalbuterol HCl 0.63 mg/3 mL 0.63 mg (3 mL) NEB Q6H PRN 09/27/24 01/09/25 Rx solution for nebulization shortness of breath or wheezing #90 mL acetaminophen 325 mg tablet 650 mg PO QID PRN Pain (Scale 01/09/25 01/09/25 History Score 1-3) acetaminophen 650 mg rectal 650 mg SD Q4H 01/09/25 01/09/25 History suppository albuterol sulfate 90 mcg/actuation 2 puff inhalation QID PRN sob 01/09/25 01/09/25 History aerosol inhaler ammonium lactate 12 % topical cream 1 applic topical BID PRN Itching 01/09/25 01/09/25 History hyoscyamine sulfate 0.125 mg tablet 0.125 mg PO Q4H PRN Secretions 01/09/25 01/09/25 History lorazepam 1 mg tablet 1 mg PO Q2H PRN Anxiety 01/09/25 01/09/25 History morphine concentrate 100 mg/5 mL 10 mg sublingual Q1H PRN Pain 01/09/25 01/09/25 History (20 mg/mL) oral solution ondansetron 4 mg disintegrating 4 mg PO Q6H PRN Nausea 01/09/25 01/09/25 History tablet sodium chloride 0.65 % nasal spray 1 spray intranasal QID PRN dry 01/09/25 01/09/25 History aerosol (Bryce Saline) nares Past Med/Surg History Problem List (Updated 01/09/25 @ 19:31 by Shannon Lema MD) Comfort measures only status Hospice care (Acute) Somnolence (Acute) Narcotic overdose (Acute) Respiratory acidosis (Acute) Palliative care by specialist Advanced care planning/counseling discussion Self neglect Muscular deconditioning Confusion Dyspnea and respiratory abnormalities Dyspnea Acute and chronic respiratory failure with hypercapnia Elbow wound (Acute) Changes in vision (Acute) Medical History Acute exacerbation of chronic obstructive pulmonary disease Social History Smoking Status: Unknown if ever smoked Tobacco Type: Cigarettes Hx Alcohol Use: No Hx Substance Use: No Preferred Language: Gibraltarian Communication Ability: Effective Contract 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 MMM, edentulous NECK: Supple without lymphadenopathy. No stiffness or restricted ROM. HEART: Normal rate and regular rhythm ELIAZAR+ LUNGS: diffuse coarse breath sounds ABDOMEN: Soft, nontender, nondistended with good bowel sounds heard. BACK: No CVAT, no obvious deformity. EXTREMITIES: Without cyanosis, clubbing or edema. NEUROLOGICAL: Grossly nonfocal. difficult to understand 2/2 edentulous Skin: chronic BLE edema with venous stasis changes Results & Data Results & Data Vital Signs (Past 12 Hours) Vital Signs Temp Pulse Pulse Resp BP BP Pulse Ox 01/09/25 17:59 86 01/09/25 17:52 85 20 125/77 94 01/09/25 16:32 84 14 91 01/09/25 16:09 86 22 124/66 82 L 01/09/25 15:40 86 20 126/63 01/09/25 15:30 01/09/25 15:22 88 01/09/25 14:20 01/09/25 14:20 47 L 01/09/25 14:20 36.6 C 88 20 126/63 94 O2 Del Method O2 Flow Rate FiO2 01/09/25 17:59 01/09/25 17:52 BiPAP 40 01/09/25 16:32 50 01/09/25 16:09 Nasal Cannula 5 01/09/25 15:40 Nasal Cannula 4 01/09/25 15:30 Nasal Cannula 4 01/09/25 15:22 01/09/25 14:20 Nasal Cannula 3 01/09/25 14:20 Room Air 01/09/25 14:20 Nasal Cannula 3 Laboratory Results Short CBC 01/09/25 Range/Units 14:35 WBC 10.40 (4.8-10.8) K/ul Hgb 11.7 L (14.0-18.0) g/dl Hct 40.1 L (42.0-52.0) % Plt Count 179 (130-400) K/uL BMP 01/09/25 14:35 Sodium 141 Potassium 4.6 Chloride 94 L Carbon Dioxide > 45 H* BUN 23 Creatinine 0.64 Glucose 118 H Calcium 9.3 Liver Function 01/09/25 Range/Units 14:35 Total Bilirubin 0.4 (0.2-1.0) mg/dl AST 18 (13-39) U/L ALT 10 (7-52) U/L Alkaline Phosphatase 71 (34-104) U/L Albumin 3.4 (3.4-5.0) gm/dl Diagnostic Findings Chest X-Ray 01/09/25 15:50 INDICATION: Cough. TECHNIQUE: Frontal radiograph of the chest. COMPARISON: Radiograph from 09/19/2024. FINDINGS: Moderate multifocal infiltrates/edema. Mild cardiomegaly. Trace pleural effusions. Mild cardiomegaly. No pneumothorax. No acute fracture. IMPRESSION: Moderate multifocal infiltrates/edema. Trace pleural effusions. Electronically signed by Carlos Webb 01-09-2025 5:47 PM Medications Administered Home Medications Medication Instructions Recorded Confirmed Last Taken budesonide 0.5 mg/2 mL suspension 0.25 mg NEB BIDR #60 mL 09/27/24 Unknown for nebulization ferrous sulfate 325 mg (65 mg 325 mg PO QAM #30 tabs 09/27/24 Unknown iron) tablet,delayed release formoterol fumarate 20 mcg/2 mL 20 mcg (2 mL) NEB BIDR #120 mL 09/27/24 Unknown solution for nebulization (Perforomist) levalbuterol HCl 0.63 mg/3 mL 0.63 mg (3 mL) NEB Q6H PRN 09/27/24 Unknown solution for nebulization shortness of breath or wheezing #90 mL Code Status & VTE Plan VTE Prophylaxis Plan VTE Prophylaxis will be ordered: No Reason for no VTE drug order: Contraindicated (1) Narcotic overdose Encounter type: initial encounter Injury intent: accidental or unintentional Qualified Code(s): T40.601A - Poisoning by unspecified narcotics, accidental (unintentional), initial encounter
[2025-01-09 19:37] VITALS: O2SAT 90
[2025-01-09] MEDS ORDERED: LEVALBUTEROL HCL 0.63 MG/3 ML NEB NEB PRN (20:36)
[2025-01-09] MEDS ORDERED: MoRPHine SULFATE 10 MG/0.5 ML UDP PO PRN (20:36)
[2025-01-09] MEDS ORDERED: SODIUM CHLORIDE 0.65% NA SOLN 45 ML (OCEAN) NAE PRN (20:36)
[2025-01-09] MEDS ORDERED: ACETAMINOPHEN 325 MG TAB PO PRN (20:36)
[2025-01-09] MEDS ORDERED: HYDROmorphone INJ 0.5 MG/0.5 ML SYR IV PRN (20:36)
[2025-01-09] MEDS ORDERED: ONDANSETRON INJ 2 MG/ML 2 ML VIAL IV PRN (20:36)
[2025-01-09] MEDS ORDERED: LORazepam 2 MG/1 ML VIAL IV PRN (20:36)
[2025-01-09] MEDS ORDERED: AMMONIUM LACTATE 12% LOTION 225 GM BTL EXT PRN (20:43)
[2025-01-09] MEDS: FORMOTEROL 20 MCG/2 ML VIAL NEB SCH (20:51)
[2025-01-09] MEDS: ALBUT/IPRATROP 3MG/0.5MG NEB 3 ML VIAL NEB SCH (20:51)
[2025-01-09] MEDS: HYOSCYAMINE SULFATE 0.125 MG TAB PO PRN (21:40)
[2025-01-09] MEDS: LORazepam 0.5 MG TAB PO PRN (21:40)
[2025-01-09] MEDS: ACETAMINOPHEN 650 MG SUPP PR SCH (21:57)
[2025-01-09 21:58] VITALS: PULSE 78; RESP 18
[2025-01-10] MEDS ORDERED: HYOSCYAMINE SULFATE 0.125 MG TAB SL PRN (05:44)
[2025-01-10] MEDS ORDERED: ATROPINE SULFATE 1% OP SOLN 5 ML BTL SL PRN (05:44)
[2025-01-10] MEDS: GLYCOPYRROLATE 0.2 MG/ML VIAL IV PRN (06:07)
--- NOTE | 2025-01-10 09:26 | Discharge Summary ---
Discharge Summary Date of Service January 10, 2025 Principal Dx & Hospital Course #1 = Principal Diagnosis (1) End stage chronic obstructive pulmonary disease: (2) Toxic encephalopathy: (3) Narcotic overdose: Unintentional (4) Chronic hypercapnic respiratory failure: (5) Comfort measures only status: (6) Hospice care: Plan Patient was brought to the emergency room from home where he was being cared for by hospice for his end-stage COPD and chronic hypercapnic respiratory failure. The patient had fallen at home and is experiencing significant amounts of pain from the fall and he received several doses of morphine. Patient became encephalopathic and decreased respiratory rate and 911 was called. He initially presented on BiPAP and required several doses of Narcan. Patient was referred to the hospital medicine group to continue his ongoing care since returning home with hospice could not be coordinated last evening. Patient was admitted to the hospital with comfort measures. It was confirmed with the patient and his family that they wanted to continue comfort measures only and continue to hospice care at home. Patient who was already titrated off BiPAP in the ED. He was given oxygen only for comfort. All other meds warfarin comfort interventions. Patient reportedly slept well through the night. Nurse came to evaluate the patient on morning rounds and patient was discovered to be . Approximate time of declared at 7:20 AM. Phone call to patient's son Brian. Expressed sympathies and condolences. Made him aware that hospice has great support services for families as well. He is notifying the rest of the family and will also touch base with the hospice program. Let him know that we would be available for any assistance we may be able to provide as well. He expressed appreciation Notes For Next Care Provider Patient Medication Changes From Visit Patient Admission HPI Per Admitting Provider Mr. Wells is an 84 year old man with PMHx significant for COPD, past tobacco abuse, on hospice who presented to the ED for acute encephalopathy iso accidental mediation overdose. Patient reportedly experienced a fall this am and hospice nursing worked to ma nage pain with a reported 20mg IV morphine in less than 1 hour--resulting in confusion and reduced respirtory rate. Patient presented to ED and placed on bipap after multiple narcan administrations. Patient expressed desire to discharge home with hospice, however, given time of night and patient's fall it was decided to admit under comfort measures with plan for discharge tomorrow. On exam, patient states he isn't in any pain. He states his name and [facility] --he reports focus on just wanting to watch the game and get home. He denies any acute concerns In the ED, vitals were notable for BP of 120s, HR of 80s, and O2 sat of *90s on Bipap, then mid90s on 6L NC Imaging revealed edema and infiltrates EKG NSR with PACs RBBB ED interventions: 0.4mg naltrexone x 2, albuterol Patient to be admitted to med/surg for further comfort measures until dispo with home hospice tomorrow Admission Exam Per Admitting Provider See H&P Discharge Exam Constitutional: Frail and cachectic HEENT: Pupils fixed and dilated Lungs: No breath sounds CV: No heart tones Neuro: No response to vigorous stimulation Patient Updated Medication List Medication Instructions Recorded Confirmed Type budesonide 0.5 mg/2 mL suspension 0.25 mg NEB BIDR #60 mL 09/27/24 01/09/25 Rx for nebulization levalbuterol HCl 0.63 mg/3 mL 0.63 mg (3 mL) NEB Q6H PRN 09/27/24 01/09/25 Rx solution for nebulization shortness of breath or wheezing #90 mL acetaminophen 325 mg tablet 650 mg PO QID PRN Pain (Scale 01/09/25 01/09/25 History Score 1-3) acetaminophen 650 mg rectal 650 mg FL Q4H 01/09/25 01/09/25 History suppository albuterol sulfate 90 mcg/actuation 2 puff inhalation QID PRN sob 01/09/25 01/09/25 History aerosol inhaler ammonium lactate 12 % topical cream 1 applic topical BID PRN Itching 01/09/25 01/09/25 History hyoscyamine sulfate 0.125 mg tablet 0.125 mg PO Q4H PRN Secretions 01/09/25 01/09/25 History lorazepam 1 mg tablet 1 mg PO Q2H PRN Anxiety 01/09/25 01/09/25 History morphine concentrate 100 mg/5 mL 10 mg sublingual Q1H PRN Pain 01/09/25 01/09/25 History (20 mg/mL) oral solution ondansetron 4 mg disintegrating 4 mg PO Q6H PRN Nausea 01/09/25 01/09/25 History tablet sodium chloride 0.65 % nasal spray 1 spray intranasal QID PRN dry 01/09/25 01/09/25 History aerosol ([place] [facility]) nares Hospital Stay Data Consultations 01/09/25 17:11 ED Decision to Admit Stat Total Time Total Time Spent Total Time Spent (In Minutes): 43
--- NOTE | 2025-01-12 05:41 | Electrocardiogram Report ---
Test Reason : Blood Pressure : */* mmHG Vent. Rate : 82 BPM Atrial Rate : 82 BPM P-R Int : 128 ms QRS Dur : 116 ms QT Int : 368 ms P-R-T Axes : 89 60 81 degrees QTcB Int : 429 ms Normal sinus rhythm Incomplete right bundle branch block Borderline ECG When compared with ECG of 17-Sep-2024 15:49, Premature atrial complexes are no longer Present Confirmed by Mati Woods ([id number]) on 01/12/2025 5:40:32 AM Referred By: REFERRED SELF Confirmed By: Mati Woods
== END 2025-01-10 11:57 | disposition expired ==
LOC: ED 14:18 → 3E 14:18 → SUATTDRO 18:45 → 3E 19:37